=== PATIENT | female | born 1950 | race Caucasian/White ===

== ENCOUNTER 2016-11-26 10:40 | Inpatient (IN) | payer MEDICARE ==
[~2016-11-26] VITALS: Ht 172.7 cm; Wt 74.5 kg
[2016-11-26] VITALS (8 sets, daily range): BP systolic 138–165; BP diastolic 52–98; PULSE 67–85; RESP 16–20; O2SAT 97–99
[~2016-11-26 10:40] MED LIST: CALC600T12 PO; LETR2.5T4 PO; LISI10TA PO; MULT1CAP33 PO; PALB125C PO
--- NOTE | 2016-11-26 11:10 | ED.REPORT ---
HPI-Abd Pain F 40 and Over Date of Service Nov 26, 2016 ED Provider: Nicolas Mancilla MD Pt is a 66 y/o female w/ a hx of metastatic breast cancer with prior diffuse small bowel infiltration and bone mets, presenting to the ED with her c/ o nausea and vomiting after eating for the past 4 days. She has a history of SBO and had a bowel resection 20 months ago. During that presentation, they found out that she had metastatic breast cancer. She believes her symptoms today are similar to that time. Anytime she eats, she becomes very nauseous. She last vomited 4 days ago. Her last meal was last night a small amount of macaroni and cheese which cause her nausea. She c/o associated RLQ abdominal pain which is the same location as her previous presentation. She passed a small amount of stool this morning. Pt denies fever, dysuria. Cancer treatment history per Dr. Carlin's note below: She received four cycles of Taxotere and Cytoxan and was on maintenance hormonal therapy after that. Details summarized in my note of August 13. She was on anastrozole alone since August 2015, but in early July 2016, had evidence of disease progression and was switched to Faslodex in combination with oral Ibrance. The Ibrance was reduced to 100 mg daily because of neutropenia issues on 125 mg. Nursing Notes Stated Complaint: POSS STOMACH BLOCKAGE/SENT BY RAFFY Chief Complaint: Female Abdominal Pain Nursing Notes Reviewed: Yes Allergies: Coded Allergies: meperidine (Verified Allergy, Severe, Nausea,Vomiting, 11/26/16) Scheduled Calcium Carbonate (Calcium) 600 Mg Tablet 600 MG PO DAILY Fulvestrant (Faslodex) 250 Mg/Syr Syringe Unknown Dose IM every 28 days Letrozole (Letrozole) 2.5 Mg Tablet 2.5 MG PO DAILY Lisinopril (Lisinopril) 10 Mg Tablet 10 MG PO DAILY Multivitamin (Multivitamins) 1 Each Capsule 1 EACH PO DAILY Palbociclib (Ibrance) 125 Mg Capsule 125 MG PO [id number] 7 General Time Seen by MD: 11:09 Chief Complaint Vomiting moderate Hx Obtained From: Patient, Spouse Arrived By: Walk-in Sudden in Onset?: No Onset Occurred: 4 days ago Symptom Duration: Since onset Progression since Onset: Constant Location: : RLQ Quality: Painful Radiation: : Does not radiate Severity: Current: Mild Severity: Maximum: Mild Recent Healthcare: Previous diagnosis Similar Sx Previous: Yes Past Medical History Past Medical History Notes: Admitted 03/25- for SBO Oncologist: Raffy Past Medical History HTN Migraines Metastatic ER positive, HER-2 negative breast cancer with prior diffuse small bowel wall infiltration and mets to bone Past Surgical History Reports: Appendectomy, Tonsillectomy Smoking History Never Smoker Social History Alcohol Use: "Social" Review of Systems Constitutional: Denies: Chills, Fever Respiratory: Denies: Non-productive cough, Shortness of breath Cardiovascular: Denies: Chest pain GI: Reports: Abdominal pain, Nausea, Vomiting, Denies: Bloody/tarry stool, Diarrhea Female: Denies: Dysuria Complete sys rev & neg: except as marked. Physical Exam Vital Signs Vital Signs (First) Date Time Temp Pulse Resp B/P Pulse Ox O2 Delivery O2 Flow Rate FiO2 11/26/16 10:44 36.8 85 16 149/95 99 Room Air Initial VS: Reviewed, Vital signs normal Head / Eyes: Atraumatic, Normocephalic, PERRL ENT: Mucous membranes moist, Conjunctiva normal, No scleral icterus Neck: Supple, Full range of motion Extremities: Vascular intact, Neuro intact, No swelling Skin: Warm, Dry, No cyanosis Neurologic: Alert, Oriented, Nonfocal Psychiatric: Mood/affect normal, Behavior normal, Normal thought content General/Constitutional: Awake, Alert, No acute distress, Cooperative, Not toxic appearing Behavior: Positive: Tearful Respiratory / Chest: Breath sounds NL, Breath sounds = bilat, No respiratory distress, No rales, No rhonchi, No wheezing Cardiovascular: Heart rate NL, Regular rhythm, Heart sounds NL, No murmurs Abdomen: Atraumatic, Soft, No guarding, No rebound, No distention Tenderness/Guarding/Rebound: Positive: Tender RLQ... (Mild) Bowel Sounds / Distention: Positive: Bowel sounds hypoactive (mild) Back: Full range of motion, Painless range of motion Interpretation & Diagnostics Lab Results Interpretation Result Diagram: 11/26/16 1137 11/26/16 1137 Test 11/26/16 11:05 11/26/16 11:37 11/26/16 12:04 Urine Color Yellow (YELLOW) Urine Appearance Clear (CLEAR,HAZY) Urine pH 6.5 (5.0-8.0) Urine Specific [place] 1.020 (1.003-1.035) Urine Protein 30mg/dL (NEG,TRACE) Urine Glucose (UA) Negativemg/dL (NEGATIVE) Urine Ketones Negativemg/dL (NEGATIVE) Urine Occult Blood Negative (NEGATIVE) Urine Nitrite Negative (NEGATIVE) Urine Bilirubin Negative (NEGATIVE) Urine Urobilinogen Normalmg/dL (NORMAL) Urine Leukocyte Esterase Negative (NEGATIVE) Urine RBC 0-2/hpf (0-2) Urine WBC 0-5/hpf (0-5) Urine Epithelial Cells Occasional/hpf (NONE-MOD) Urine Crystals None seen (NONE SEEN) Urine Bacteria None/hpf (NONE-FEW) Urine Hyaline Casts None/lpf (NONE) Urine Granular Casts None seen (NONE SEEN) Urine Waxy Casts None seen (NONE SEEN) Urine Red Blood Cell Casts None seen (NONE SEEN) Urine White Blood Cell Casts None seen (NONE SEEN) Urine Mucus Present (None Seen) Urine Trichomonas None seen (NONE SEEN) Urine Yeast None (NONE SEEN) Urinalysis Comment None Urine Culture Reflexed Not indicated Hold Urine Received (Received) White Blood Count 2.2th/mm3 (3.8-10.1) Red Blood Count 3.11mil/mm3 (3.90-5.20) Hemoglobin 10.6g/dL (12.0-15.6) Hematocrit 32.1% (35.0-46.0) Mean Corpuscular Volume 103.2fL (81-100) Mean Corpuscular Hemoglobin 34.1pg (27.0-35.0) Mean Corpuscular Hemoglobin Concent 33.0% (32.0-37.0) Red Cell Distribution Width 13.7% (12.3-15.4) Platelet Count 184bil/L (150-400) Neutrophils (%) (Auto) 50.5% (40-74) Lymphocytes (%) (Auto) 39.4% (14-46) Monocytes (%) (Auto) 5.5% (4-12) Eosinophils (%) (Auto) 2.3% (0-5) Basophils (%) (Auto) 1.8% (0-3) Sodium Level 141mEq/L (134-144) Potassium Level 4.4mEq/L (3.5-5.2) Chloride Level 103mEq/L (97-108) Carbon Dioxide Level 22mmol/L (18-29) Blood Urea Nitrogen 27mg/dL (8-27) Creatinine 0.93mg/dL (0.57-1.00) Estimat Glomerular Filtration Rate 86mL/min (>59) Glucose Level 104mg/dL (60-99) Calcium Level 10.6mg/dL (8.5-10.1) Magnesium Level 2.1mg/dL (1.6-2.6) Total Bilirubin 0.5mg/dL (0.0-1.2) Aspartate Amino Transf (AST/SGOT) 23U/L (0-50) Alanine Aminotransferase (ALT/SGPT) 14U/L (0-32) Alkaline Phosphatase 66U/L (25-165) Total Protein 7.7g/dL (6.4-8.4) Albumin 4.8g/dL (3.4-5.0) Lipase 193U/L (13-60) Lactic Acid Level 1.3mmol/L (0.4-2.0) Hold Ospina Top Tube Received (Received) CT Abd / Pelvis Interpretation IMPRESSION: Severe ascending and transverse colonic wall thickening in keeping with an infectious or inflammatory (statistically less likely ischemic) colitis. Of note the appendix is not discretely identified therefore cannot entirely exclude acute appendicitis although probably less likely given the long segment involvement. Nonetheless, recommend clinical and laboratory correlation. Nonobstructive right renal calculus. L3 osseous metastasis as before, with unchanged appearance Dictated by: Benny Telles M.D. on 11/26/2016 at 14:18 Approved by: Benny Telles M.D. on 11/26/2016 at 14:32 Study type: Abdominal CT IV contrast, Abdom CT oral contrast Interpretation / Wet Read by: Interpret - Radiologist Re-Eval/Medical Decision Med Decision/Clinical Course 66-year-old female history of breast cancer metastases to the bones presenting with right lower quadrant pain and nausea times several weeks. She had history of small bowel obstruction which was presenting symptom at time of diagnosis of metastatic breast cancer. She had a bowel resection at that time 2 years ago. Today her CT shows bowel wall thickening. Her white blood cell count is 2.2. She is on chemotherapy Ibranz which is likely causing her borderline neutropenia. Discussed withradiology. Possibly typhlitis. Discussed with general surgery and her oncologist Dr. Smith who recommended admission for possible typhlitis with IV Zosyn. Dr. Meléndez general surgery also requested GI consult for possible upper and lower endoscopy given her gastric distention possible gastroparesis. GI was consulted and they will talk with the primary team. Source of Hx: Old records Re-Evaluation/Progress : Time of Eval: 15:52 Re-Evaluation/Progress Note: Pt rechecked. Informed pt of need for admission. Pt understands and agrees with plan for admission. All questions addressed. Consultation #1: Referral / Consult Name: Earl Meléndez MD Consulted With: Surgeon Call Returned at: 15:37 Fifth Grade Teacher: Will see patient, Agrees with eval, Agrees with plan Note: Recommend admit to medicine. Will consult during admission. 16:43 after evaluation - recommends upper and lower endoscopy to evaluate possible gastroparesis Consultation #2: Referral / Consult Name: Irene Galan DO Consulted With: Hospitalist Call Returned at: 16:28 Fifth Grade Teacher: Will see patient, Agrees with eval, Agrees with plan, Accepts admit Consultation #3: Referral / Consult Name: Collin Aguayo MD Call Returned at: 17:01 Fifth Grade Teacher: Agrees with eval, Agrees with plan Note: Updated oncologist on case findings thus far. He will follow along during admit. Consultation #4: Referral / Consult Name: Giancarlo Holm MD Call Returned at: 17:48 Fifth Grade Teacher: Agrees with eval, Agrees with plan Note: Discussed case with GI. Will discuss case with hospitalist team. Counseled Regarding: Diagnosis, Lab results, Need for admission Discharge & Departure Primary Impression: Typhlitis Additional Impressions: Leukopenia Leukopenia type: neutropenia Neutropenia type: unspecified Qualified Code: D70.9 - Neutropenia, unspecified Gastric distention Disposition: ADMITTED TO HOSPITAL Discharge Condition All VS Reviewed: Yes Condition: Stable Referrals: Karen Lopez PA-C (PCP) Clolin Aguayo MD Scribe Attestation Portions of this note were transcribed by Henry Duke. I, Dr. Mancilla personally performed the history, physical exam and medical decision-making; I reviewed and confirmed the accuracy of the information in the transcribed note. Signed by Ruchi Ruvalcaba, 11/26/16 - 1200 copies to: Collin Aguayo MD; Karen Lopez PA-C, Ben M MD Nov 26, 2016 11:10 HENRY DUEK Nov 26, 2016 11:25
[2016-11-26] MEDS ORDERED: FAS500INJ IM (11:25)
[2016-11-26] MEDS ORDERED: 0.9% Sodium Chloride 1,000 ML IV ONE (11:25)
[2016-11-26] MEDS ORDERED: Iohexol 300 mg/mL 30 mL Inj PO ONE (11:25)
[2016-11-26 11:47] LABS: BASOPHILS % (AUTO) 1.8 % (0-3); EOSINOPHILS % (AUTO) 2.3 % (0-5); MONOCYTES % (AUTO) 5.5 % (4-12); Mean Corpuscular Hemoglobin 34.1 pg (27.0-35.0); Mean Corpuscular Volume 103.2 fL (81-100); NEUTROPHILS % (AUTO) 50.5 % (40-74); Platelet Count 184 bil/L (150-400)
[2016-11-26 12:08] LABS: APPEARANCE,URINE CLEAR (CLEAR,HAZY); COLOR,URINE YELLOW (YELLOW); OCCULT BLOOD,URINE NEGATIVE (NEGATIVE); PH,URINE 6.5 (5.0-8.0); UROBILINOGEN,URINE NORMAL (NORMAL)
[2016-11-26 12:09] LABS: Magnesium 2.1 mg/dL (1.6-2.6)
[2016-11-26] MEDS: Ondansetron 2 mg/mL 2 mL Inj IVPUSH PRN ×4 (13:01→23:14)
--- NOTE | 2016-11-26 14:33 | DRSVH ---
PROCEDURE: CT ABDOMEN AND PELVIS WITH CONTRAST ([id number]) INDICATIONS: abd pain h/o sbo/breast ca colon mets s/p resectio TECHNIQUE: After the administration of oral and intravenous contrast, 5 mm thick sections acquired from the diap hragms to the symphysis. 5 mm thick coronal and sagittal reformats were performed. For radiation do se reduction, the following was used: automated exposure control, adjustment of mA and/or kV accordi ng to patient size. COMPARISON: [facility], CT, CT CHEST ABD PELVIS W CON, 04/16/2016, 11:59. [facility], NM, NM BONE SCAN WHOLE BODY, 04/16/2016, 13:39. [facility], CT, CT ABD PELVIS W CON, 03/30/2015, 15:38. FINDINGS: Image quality: Excellent. ABDOMEN: Lung bases: Lung bases are clear. Heart size is normal. Solid organs: Liver and spleen are normal in size and enhancement. Gallbladder grossly unremarkable . Biliary system is mildly prominent however this is unchanged appearance since 03/30/15. Pancreas enhances normally. No adrenal nodules. Kidneys are normal in size and enhancement, without hydronep hrosis. Presumed subcentimeter right renal cyst or infarct, too small to characterize definitively. T here is a nonobstructive 1 mm right renal calculus on image 42 series 2. Peritoneum and bowel: There is long segment circumferential wall thickening involving the descending and proximal transverse colon, with adjacent inflammatory stranding and fluid. Background surgical changes, with bowel surgical anastomosis noted. No free air. The appendix is not clearly identified. The rectum is largely decompressed and grossly unremarkable. Nodes and vessels: No retroperitoneal or mesenteric adenopathy. Aorta and inferior vena cava are no rmal in caliber. Miscellaneous: No ventral hernias. PELVIS: Genitourinary: Bladder wall thickness is normal. Miscellaneous: No inguinal hernias or adenopathy. Bones: Diffuse L3 sclerosis and compression fracture, likely pathologic secondary to osseous metastas is. No definite interval change since 04/16/16. IMPRESSION: Severe ascending and transverse colonic wall thickening in keeping with an infectious or inflammatory (statistically less likely ischemic) colitis. Of note the appendix is not discretely identified ther efore cannot entirely exclude acute appendicitis although probably less likely given the long segment involvement. Nonetheless, recommend clinical and laboratory correlation. Nonobstructive right renal calculus. L3 osseous metastasis as before, with unchanged appearance Dictated by: Benny Telles M.D. on 11/26/2016 at 14:18 Approved by: Benny Telles M.D. on 11/26/2016 at 14:32
[2016-11-26] MEDS ORDERED: Piperacillin-Tazo 3.375 Gm Inj 3.375 GM in Dextrose 5% Minibag Plus 50 ML IV ONE (15:45)
[2016-11-26] MEDS ORDERED: Ondansetron 2 mg/mL 2 mL Inj IVPUSH PRN (16:30)
[2016-11-26] MEDS ORDERED: Alum-Mag Hydrox-Simeth 30 mL Suspension PO PRN ×2 (16:30→18:35)
--- NOTE | 2016-11-26 17:25 | CONS ---
[address] [address] CONSULTATION REPORT PATIENT: ASHU OLMEDO : 1950 MR#: [id number] ADMIT: 11/26/2016 JOB ID: [id number] DATE OF SERVICE: 11/26/2016 IDENTIFICATION/CHIEF COMPLAINT: Dr. Justice Souza has asked me to consult on this 66-year-old woman, sent over from medical oncologist' office regarding vomiting. HISTORY OF PRESENT ILLNESS: Patient reports emesis x1 today and was sent over for evaluation from her medical oncologist's. CT scan was read as thickening of the ascending colon and given her chronic leukopenia, the consideration of typhlitis was raised. The plan is to admit her to the hospitalist service and treated her for tonsillitis with General Surgery consultation. As I see the patient and talk to her, she describes symptoms of postprandial fullness, solids greater than liquids, with occasional emesis. She has a normal bowel movement every day, but has recently felt that it has been more difficult to regulate her bowel movements with stool softeners. She will often feel bloated and distended even without eating. This has been a chronic problem for some time, and seems to be getting worse. PAST MEDICAL HISTORY: Significant in that she was diagnosed with stage IV breast cancer back at the end of 2014 in a very unusual way when she presented with small bowel obstruction with findings at surgery of four areas of infiltrating adenocarcinoma consistent with infiltrating breast cancer, infiltrating the submucosa, muscularis propria and serosal surface of the small bowel. Since that time, she has been treated by Dr. Carlin in Medical Oncology and has done well, though recently had a rise in her tumor markers and had some changes to her chemotherapy with additions to her dual antiestrogen therapy. Her other past medical history is only significant for hypertension, colon polyps, and a previous appendectomy. PHYSICAL EXAMINATION: A slender woman in no acute distress. Vital signs are recorded in the chart. They are within normal limits. Her abdomen is soft and nontender. LABORATORY DATA: Show white count of 2.2 and hematocrit of 32.1 which is essentially unchanged over the past several months. Chemistries are within normal limits. Her glucose is 104. Her lipase is mildly elevated at 193. IMAGING: She had a CAT scan today that I both reviewed the report and the films. The impression was severe ascending and transverse colonic wall thickening consistent with infectious or inflammatory colitis as well as some L3 osseous metastatic disease noted with an unchanged appearance. I have looked at the films and compared the films to her previous CAT scan from April 2016, and note that at that time they noted some mild biliary and pancreatic ductal dilation without a discrete mass identified. As well, when I compare the stomach and the colon on these two films, it seems to me that she has a relatively dilated stomach on both the films and that her ascending colon had significant thickening back in April. IMPRESSION AND PLAN: A 66-year-old woman with emesis, history of stage IV breast cancer presenting with infiltrating intestinal metastases and concerns of possible typhlitis. My concern is whether most of her symptoms reflect some sort of gastric outlet obstruction and whether there is a possibility of a mechanical obstruction due to cancer in the pylorus. As well, I wonder whether there is an element of infiltrating breast cancer in the right colon. My recommendation is to treat her as if she has typhlitis but also have GI see her and consider upper endoscopy tomorrow morning and possibly colonoscopy after a bowel prep. I discussed the case with Dr. Justice Souza and I will discuss the case with GI advisor consultant and Dr. Carlin as time allows today.
--- NOTE | 2016-11-26 18:34 | PCM.HPMED ---
Subjective Date of Service Nov 26, 2016 Primary Provider: Admitting Physician: Fab Solorio MD Primary Care Physician: Karen Lopez PA-C Attending Physician: Fab Solorio MD Chief Complaint: Nausea and vomiting History of Present Illness: Vernell Bailon is a 66-year-old woman with past medical history significant for ER positive HER-2 negative metastatic breast cancer which initially presented as small bowel obstruction secondary to diffuse small bowel infiltration was initially diagnosed in late 2013 who presents to the [facility] emergency department today due to nausea and vomiting and recurrent mild abdominal pain. She has noticed severe nausea for the last 4 days and has not been able to eat very much and has been very careful with drinking even tiny amounts of water as it has caused her worsening. Prior to this she was feeling quite well actually. Patient denies any fevers, chills, shortness of breath, diarrhea, lower actually bruising, lower extremity edema. Patient was still able to pass small amounts of stool and gas. The patient's chart reveals that the patient had excellent disease control of induction chemotherapy and hormonal therapy. The patient has had a rise in her tumor marker and subsequently her regimen was changed. She did have neutropenia which was the reason that dose of her chemotherapy was reduced. In the emergency department her vitals were stable. She was given 1 L normal saline as well as [address] of abdomen revealed thickening of the transverse and ascending colon suggestive of ischemia/inflammation/infection. Dr. Meléndez of surgery was consulted related the patient and has kindly agreed to consult. He recommends antibiotic therapy. Does not believe the patient needs to drink this time. Recommends colonoscopy and EGD. Dr. Carlin was consulted from the ED and has agreed to consult on the patient. Review of Systems: A comprehensive review of systems was conducted with the patient and found to be negative except as above in the History of Present Illness. Allergies Coded Allergies: meperidine (Verified Allergy, Severe, Nausea,Vomiting, 11/26/16) Home Medications A comprehensive review of systems was conducted with the patient and found to be negative except as above in the History of Present Illness. PMH HTN Migraines Metastatic ER positive, HER-2 negative breast cancer with prior diffuse Surgical History Appendectomy Tonsillectomy Family History Patient's father had stomach cancer and her sister had cervical cancer Social History Hx Alcohol Use: No Hx Substance Use: No Hx Tobacco Use: No Smoking Status: Never Smoker Exam Vital Signs Vital Sign - Last Date Time Temp Pulse Resp B/P Pulse Ox O2 Delivery O2 Flow Rate FiO2 11/26/16 13:37 36.6 70 20 148/52 98 Room Air Exam General: No acute distress, well-developed, well-nourished, appropriately interactive HEENT: Normocephalic, atraumatic. External ears without defect. Pupils equal, round, and reactive to light and accommodation. Anicteric sclerae, moist conjunctivae, and no lid lag. Oropharynx free of erythema and cobble stoning with moist mucosa. Neck: Supple with full range of motion. No jugular venous distension. No bruits. No lymphadenopathy or thyromegaly. Cardiovascular: Regular rate and rhythm with no murmurs, rubs, or gallops appreciated Pulmonary: Clear to auscultation bilaterally with no crackles, wheezes, or rhonchi. Normal respiratory effort with no use of accessory muscles. Abdomen: Bowel tones present. Soft, mildly tender diffusely, nondistended. No hepatosplenomegaly or masses appreciated. Extremities: No clubbing, cyanosis, or lymphadenopathy appreciated. Mild lower extremity edema up the ankles. Skin: Normal temperature, turgor, and texture; no rash, ulcers, or subcutaneous nodules appreciated. Neurological: Cranial nerves grossly intact. Normal muscle strength, tone, and bulk. Reflexes, coordination, and sensory function within normal limits. No known gait impairment. Psychiatric: Normal mood and affect. Alert and oriented to person, place, and time. Lab and Diagnostics Result Diagram: 11/26/16 1137 11/26/16 1137 X-Rays, CTs and MRIs CT ABDOMEN AND PELVIS WITH CONTRAST IMPRESSION: Severe ascending and transverse colonic wall thickening in keeping with an infectious or inflammatory (statistically less likely ischemic) colitis. Of note the appendix is not discretely identified therefore cannot entirely exclude acute appendicitis although probably less likely given the long segment involvement. Nonetheless, recommend clinical and laboratory correlation. Nonobstructive right renal calculus. L3 osseous metastasis as before, with unchanged appearance Dictated by: Benny Telles M.D. on 11/26/2016 at 14:18 Assessment & Plan Vernell Bailon is a 66-year-old woman with past medical history significant for ER positive HER-2 negative metastatic breast cancer which initially presented as small bowel obstruction secondary to diffuse small bowel infiltration was initially diagnosed in late 2013 who presents to the [facility] emergency department today due to nausea and vomiting and recurrent mild abdominal pain. Transverse and ascending colon colitis concerning for typhlitis, present remission, active -Patient has been evaluated by Dr. Meléndez who does not believe patient needs to undergo surgery at this time. -We will initiate patient on empiric antibiotics with Zosyn. -If the patient should develop fevers and continue to have them from >72 hours should be initiated on an antifungal agent. -We will obtain stool PCR. -Discussed the case with Dr. Holm of gastroenterology. If the patient's stool PCR is negative and no obvious etiology of colitis is found he has agreed that the patient should be evaluated with a colonoscopy. -At this time we will continue to monitor the patient. IV maintenance fluids. -Bowel rest -Antiemetic with Zofran and Phenergan -Blood cultures Metastatic ER positive, HER-2 negative breast cancer, present on admission, active -Managed by Dr. Carlin. He has been consulted from the emergency department and has agreed to see the patient while she is in the hospital. -We will differ to Dr. Carlin about continuation of outpatient medications. Leukopenia secondary to cytotoxic agent, present on admission, active -ANC 1100 -Continue to monitor Hypertension, present on admission, active -Hold home medications at this time. CODE STATUS: DNR/DNI Patient is admitted under inpatient status with expected length of stay greater than 2 midnights due to severity of presenting symptoms, risk of adverse event, and complexity of treatment plan. VTE Prophylaxis: Sub-Q Heparin (Unfractionated) Resuscitation Status: DNR/DNI:Do Not Resuscitate/Intubate Attending Statement Discussed the case with Dr. Galan. Agree with the assessment and plan. Irene Galan DO Nov 26, 2016 17:25 Fab Solorio MD Nov 26, 2016 21:03
[2016-11-26] MEDS ORDERED: Polyethylene Glycol (PEG) 17 Gm Powder PO PRN (18:35)
--- NOTE | 2016-11-26 18:42 | NUR ---
Admit Patient admitted into room from ED accompanied by . Saline locked IV access, transferred independently to bed, A&OX3, and on room air. Plan of care on white board and went over with patient and her .
[2016-11-26] MEDS: 0.9% Sodium Chloride 1,000 ML IV SCH (19:42)
[2016-11-27] VITALS (12 sets, daily range): BP systolic 85–158; BP diastolic 61–96; PULSE 60–102; RESP 8–18; O2SAT 96–100
[2016-11-27] MEDS: Piperacillin-Tazo 3.375 Gm Inj 3.375 GM in Dextrose 5% Minibag Plus 50 ML IV SCH ×3 (00:51→16:39)
[2016-11-27] MEDS: Heparin 5,000 Unit/mL Inj SUBQ SCH ×3 (00:58→16:40)
--- NOTE | 2016-11-27 01:26 | NUR ---
Tearful Mood/Nausea/Vomiting On initial assessment, patient appears very anxious and tearful about future diagnosis. Patient feels as if the cancer might be all throughout her intestines. Patient states her is not ready to be by himself. RN and patient talked about goals, worse and best case scenarios. Patient stated that nausea had not subsided. Zofran 4mg IVP administered x2. Patient vomited 475ml. Vomitus was dark tea colored. Patient felt better post vomitus. Patient is slightly hypertensive. Other VSS. Call light within reach. Care continues.
[2016-11-27] MEDS: 0.9% Sodium Chloride 1,000 ML IV SCH ×2 (05:37→15:42)
[2016-11-27 06:49] LABS: BASOPHILS % (AUTO) 0.5 % (0-3); EOSINOPHILS % (AUTO) 2.8 % (0-5); MONOCYTES % (AUTO) 5.1 % (4-12); Mean Corpuscular Hemoglobin 33.7 pg (27.0-35.0); NEUTROPHILS % (AUTO) 54.7 % (40-74); Platelet Count 165 bil/L (150-400)
[2016-11-27] MEDS ORDERED: Propofol 10,000 mCg/mL 20 mL Inj ONE (09:50)
[2016-11-27] MEDS ORDERED: fentaNYL-PF 50 mCg/mL 2 mL Inj ONE (09:50)
--- NOTE | 2016-11-27 13:38 | PCM.PNMED ---
Subjective Date of Service Nov 27, 2016 Subjective Patient seen and examined. Feeling better today. No nausea. No abdominal pain. Vitals stable. Exam Vital Signs Vital Sign - Last Date Time Temp Pulse Resp B/P Pulse Ox O2 Delivery O2 Flow Rate FiO2 11/27/16 12:35 36.7 70 18 144/84 100 Room Air Intake and Output 11/26/16 11/26/16 11/27/16 Cumulative From/Thru 15:00 23:00 07:00 11/26/16 10:44 - 11/27/16 06:16 Intake Total 0 ml 1054 ml 1054 ml Output Total 0 ml 1275 ml 1275 ml Balance 0 ml -221 ml -221 ml Intake Oral 0 ml 0 ml 0 ml IV Total 1054 ml 1054 ml Output Urine Total 0 ml 800 ml 800 ml Emesis 475 ml 475 ml # Bowel Movements 0 0 Exam General: No acute distress, well-developed, well-nourished, appropriately interactive Cardiovascular: Regular rate and rhythm with no murmurs, rubs, or gallops appreciated Pulmonary: Clear to auscultation bilaterally with no crackles, wheezes, or rhonchi. Normal respiratory effort with no use of accessory muscles. Abdomen: Bowel tones present. Soft, mildly tender diffusely, nondistended. No hepatosplenomegaly or masses appreciated. Extremities: No clubbing, cyanosis, or lymphadenopathy appreciated. Mild lower extremity edema up the ankles. Skin: Normal temperature, turgor, and texture; no rash, ulcers, or subcutaneous nodules appreciated. Lab and Diagnostics Result Diagram: 11/27/16 0535 11/27/16 0535 X-Rays, CTs and MRIs CT ABDOMEN AND PELVIS WITH CONTRAST IMPRESSION: Severe ascending and transverse colonic wall thickening in keeping with an infectious or inflammatory (statistically less likely ischemic) colitis. Of note the appendix is not discretely identified therefore cannot entirely exclude acute appendicitis although probably less likely given the long segment involvement. Nonetheless, recommend clinical and laboratory correlation. Nonobstructive right renal calculus. L3 osseous metastasis as before, with unchanged appearance Dictated by: Benny Telles M.D. 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 Transverse and ascending colon colitis concerning for typhlitis, present remission, active -Patient has been evaluated by Dr. Meléndez who does not believe patient needs to undergo surgery at this time. -on Zosyn. -If the patient should develop fevers and continue to have them from >72 hours should be initiated on an antifungal agent. -We will obtain stool PCR. with enema as patient has not had bowel movement -Discussed the case with Dr. Holm of gastroenterology. If the patient's stool PCR is negative and no obvious etiology of colitis is found he has agreed that the patient should be evaluated with a colonoscopy. -At this time we will continue to monitor the patient. IV maintenance fluids. -Bowel rest -Antiemetic with Zofran and Phenergan -Blood cultures Metastatic ER positive, HER-2 negative breast cancer, present on admission, active -Managed by Dr. Carlin. He has been consulted from the emergency department and has agreed to see the patient while she is in the hospital. -We will differ to Dr. Carlin about continuation of outpatient medications. Leukopenia secondary to cytotoxic agent, present on admission, active -ANC 1100 -Continue to monitor Hypertension, present on admission, active -Hold home medications at this time. CODE STATUS: DNR/DNI Dispo: likely home pending clinical improvement . VTE Prophylaxis: Sub-Q Heparin (Unfractionated) Resuscitation Status: DNR/DNI:Do Not Resuscitate/Intubate Time spent 35 mins Fab Solorio MD Nov 27, 2016 13:38
[2016-11-27] MEDS ORDERED: Lactated Ringer's 1,000 ML IV ONE ×2 (16:49→18:00)
--- NOTE | 2016-11-27 17:17 | PCM.HPANE ---
Patient Data Date of Service: Nov 27, 2016 Surgeon Admitting Provider:Fab Solorio MD Attending Provider:Fab Solorio MD Primary Care Physician:Karen Lopez PA-C Other Provider: Reason for Visit Typhlitis TYPHLITIS Ht/WT & BMI Height (Feet): 5 Height (Inches): 8.00 Weight (Kilograms): 72.600 Body Mass Index 24.26 Allergies Coded Allergies: meperidine (Verified Allergy, Severe, Nausea,Vomiting, 11/26/16) Past Anesthesia History Anesthesia History: Positive for:: Anesthesia Reactions (DEMEROL AFTER SURGERY) , Denies:: Abnormal Airway, Difficult Intubation, Fam Anesthesia Reaction, Fam Malignant Hypertherm, Malignant Hyperthermia Diabetes History Hx Diabetes?: No Current Bedside Blood Glucose: 84 MRSA MRSA: No Medications Reported Medications Fulvestrant (Faslodex)250 Mg/Syr SyringeUnknown Dose IM every 28 days 11/26/16 Letrozole 2.5 Mg Tablet2.5 Mg PO DAILY Ref 0 11/07/16 Palbociclib (Ibrance)125 Mg [id number] Mg PO [id number],off 7 08/13/16 Lisinopril 10 Mg [id number] Mg PO DAILY #30 TABLET Ref 6 03/21/16 Calcium Carbonate (Calcium)600 Mg [id number] Mg PO DAILY 06/29/15 Multivitamin (Multivitamins)1 Each Capsule1 Each PO DAILY 06/10/15 History History of ENT Problems?: Yes HEENT History: Positive for:: Sinus Problem (SEASONAL ALLERGIES.) Denies:: Abnormal Airway Cataracts Difficult Intubation Dysphagia Hearing Problem Denture Type: None Teeth Condition: Within Normal Limits Hx of Heart Problems?: Yes Cardiovascular History: Positive for:: Hypertension Denies:: Atrial Fibrillation Cardiac Surgery Chest Pain Congestive Heart Failure Edema Heart Murmur Irregular Heartbeat Pacemaker Thrombophlebitis Valvular Heart Disease Hx of Respiratory Problem?: No Respiratory History: Denies:: Asthma COPD Chest Surgery Cough Dyspnea Emphysema Hemoptysis Pneumonia Tuberculosis Hx Neurologic Problems?: Yes Neurological History: Positive for:: Headaches (MIGRAINE) Denies:: Alzheimer's Disease CVA Dementia Dizziness Parkinson's Disease Seizures Hx of GI Problems?: Yes (abdominal pain, nausea) Hx of Problems?: No Genitourinary History: Denies:: HX of Hemodialysis Kidney Stones Urinary Tract Infection HX of Peritoneal Dialysis: No Female Hx: Denies:: Currently Endometriosis Pelvic Inflammatory Problems with Breasts? Hx Musculoskeletal Problems?: Yes Musculoskeletal History: Positive for:: Back Injury Denies:: Joint Replacement Musculoskeletal Trauma Hx of Psycho/Social Problems?: Yes Psycho Social History: Positive for:: Anxiety Denies:: Bipolar Disorder Hx Depression Suicide Attempt Hx Surgeries?: Yes (TONSILLECTOMY, APPENDENCTOMY, KNEE SURGERY) Hx Any Other Health Problems?: Yes Other History: Positive for:: Cancer (metastatic breast cancer) Hospitalization (CHILDBIRTH, SBO) Denies:: Thyroid Disease History Blood Transfusions: Positive for:: Accept Blood Products? Denies:: Blood Transfuse Reaction Blood Transfusions Hx Diabetes: NoBedside Blood Glucose: 84 Hx Alcohol Use: NoHx Substance Use: No Smoking Status: Never Smoker Have You Smoked inLast 12 mo: No Stop/Bang Treated for Sleep Apnea?: No Do You Have a CPAP Machine?: No S-Snoring: Do You Snore Loudly: No T-Tired: feel tired, fatigued: No O-Obsered: Observed not breath: No P-Blood Pressure: treated: Yes B- Body Mass Index > 35 kg/m2: No A- Age over 50: Yes N- Neck Large Circumference: No G- Gender Male: No PENNY Total Score: 1 PENNY Risk Assessment: Low Risk, <3 Yes Risk Assessment Category Category 1A: Patient has history of documented sleep apnea, and HAS NOT received any narcotic, sedative or anesthesia administration during this stay. Category 1B: Patient has history of documented sleep apnea, and HAS received any narcotic , sedative or anesthesia administration during this stay Category 2: Patient has SUSPECTED Obstructive Sleep Apnea, and HAS received any narcotic , sedative or anesthesia administration during this stay. Category 3: Patient has SUSPECTED Obstructive Sleep Apnea and HAS NOT received narcotic, sedative or anesthesia administration during this stay. Category 4: Outpatient in Procedural Areas with known sleep apnea or who screen positive for High Risk via the STOP/BANG questionnaire. Exam Exam Vital Signs Vital Signs Date Time Temp Pulse Resp B/P Pulse Ox O2 Delivery O2 Flow Rate FiO2 11/27/16 16:36 36.7 71 18 158/96 97 Room Air 11/27/16 12:35 36.7 70 18 144/84 100 Room Air 11/27/16 10:41 68 General Appearance: Alert, Oriented X3, Cooperative HEENT/AIRWAY: MP 2, Neck Movement, Mouth Opening Lungs: Clear to Auscultation, Normal Air Movement Heart: Regular Rate/Rhythm, Normal S1, Normal S2 Meds/Labs/Diagnostics Admission Meds Current Medications Heparin Sodium (Porcine) 5000 unit 5,000 unit Q8 SUBQ Last administered on 11/27 16:40; Start 11/27/16 at 00:30 Sodium Chloride 1,000 ml @ 100 mls/hr Q10H IV Last administered on 11/27/16 15:42; Start 11/26/16 at 18:35 Piperacillin Sod/ Tazobactam Sod/ Dextrose/Water (Zosyn 3.375 Gm Inj/D5W Minibag Plus) 50 ml @ 12.5 mls/hr Q8 IV Last administered on 11/27/16 16:39; Start 11/27/16 at 00:30 Lisinopril (Zestril) 10 mg DAILY PO Last administered on 11/27/16 15:42; Start 11/27/16 at 13:45 Bedside Blood Glucose: 84 Labs Test 11/26/16 11:05 11/26/16 11:37 11/26/16 12:04 11/27/16 05:35 Urine Color Yellow (YELLOW) Urine Appearance Clear (CLEAR,HAZY) Urine pH 6.5 (5.0-8.0) Urine Specific [place] 1.020 (1.003-1.035) Urine Protein 30mg/dL (NEG,TRACE) Urine Glucose (UA) Negativemg/dL (NEGATIVE) Urine Ketones Negativemg/dL (NEGATIVE) Urine Occult Blood Negative (NEGATIVE) Urine Nitrite Negative (NEGATIVE) Urine Bilirubin Negative (NEGATIVE) Urine Urobilinogen Normalmg/dL (NORMAL) Urine Leukocyte Esterase Negative (NEGATIVE) Urine RBC 0-2/hpf (0-2) Urine WBC 0-5/hpf (0-5) Urine Epithelial Cells Occasional/hpf (NONE-MOD) Urine Crystals None seen (NONE SEEN) Urine Bacteria None/hpf (NONE-FEW) Urine Hyaline Casts None/lpf (NONE) Urine Granular Casts None seen (NONE SEEN) Urine Waxy Casts None seen (NONE SEEN) Urine Red Blood Cell Casts None seen (NONE SEEN) Urine White Blood Cell Casts None seen (NONE SEEN) Urine Mucus Present (None Seen) Urine Trichomonas None seen (NONE SEEN) Urine Yeast None (NONE SEEN) Urinalysis Comment None Urine Culture Reflexed Not indicated Hold Urine Received (Received) Magnesium Level 2.1mg/dL (1.6-2.6) Lipase 193U/L (13-60) Procalcitonin 0.05ng/mL (0.00-0.08) Lactic Acid Level 1.3mmol/L (0.4-2.0) Hold Ospina Top Tube Received (Received) White Blood Count 2.1th/mm3 (3.8-10.1) Red Blood Count 3.09mil/mm3 (3.90-5.20) Hemoglobin 10.4g/dL (12.0-15.6) Hematocrit 30.9% (35.0-46.0) Mean Corpuscular Volume 100.0fL (81-100) Mean Corpuscular Hemoglobin 33.7pg (27.0-35.0) Mean Corpuscular Hemoglobin Concent 33.7% (32.0-37.0) Red Cell Distribution Width 13.8% (12.3-15.4) Platelet Count 165bil/L (150-400) Neutrophils (%) (Auto) 54.7% (40-74) Lymphocytes (%) (Auto) 36.9% (14-46) Monocytes (%) (Auto) 5.1% (4-12) Eosinophils (%) (Auto) 2.8% (0-5) Basophils (%) (Auto) 0.5% (0-3) Sodium Level 142mEq/L (134-144) Potassium Level 4.3mEq/L (3.5-5.2) Chloride Level 107mEq/L (97-108) Carbon Dioxide Level 20mmol/L (18-29) Blood Urea Nitrogen 18mg/dL (8-27) Creatinine 0.78mg/dL (0.57-1.00) Estimat Glomerular Filtration Rate 105mL/min (>59) Glucose Level 99mg/dL (60-99) Calcium Level 9.2mg/dL (8.5-10.1) Total Bilirubin 0.6mg/dL (0.0-1.2) Aspartate Amino Transf (AST/SGOT) 20U/L (0-50) Alanine Aminotransferase (ALT/SGPT) 12U/L (0-32) Alkaline Phosphatase 63U/L (25-165) Total Protein 6.8g/dL (6.4-8.4) Albumin 4.4g/dL (3.4-5.0) Plan Impression Patient chart reviewed, patient interviewed and anesthestic plan with risks, benefits, and alternatives discussed, and informed consent obtained. NPO per Anesth. Guidelines: Yes ASA Physical Status: ASA3 Severe Disease Anesthetic Plan: MAC Bene/Risks/Altern/Consents: Yes HP Complete Prior to Induction: Yes Matt Miramontes MD Nov 27, 2016 16:50
--- NOTE | 2016-11-27 17:47 | PCM.ANEP1 ---
Post Anesthesia PACU Phase 1 Assessment Date of Service: Nov 27, 2016 Vital Signs Vital Signs Date Time Temp Pulse Resp B/P Pulse Ox O2 Delivery O2 Flow Rate FiO2 11/27/16 17:44 95 8 134/81 100 Room Air 11/27/16 17:12 71 14 153/94 100 Room Air 11/27/16 16:36 36.7 71 18 158/96 97 Room Air 11/27/16 12:35 36.7 70 18 144/84 100 Room Air 11/27/16 10:41 68 Anesthetic Administered: MAC Level of Alertness: Sleeping, hard to arouse CERON's with Equal Strength: Yes Pain: No Nausea or Vomiting: No CV Function & Hydration Stable: Yes Airway Device: Oxygen Delivery: Nasal Cannula Lungs: Clear to Auscultation, Normal Air Movement PACU Phase 2 Assessment Complications: No Follow up Care: N/A Patient Instructions Provided: N/A Matt Miramontes MD Nov 27, 2016 17:47
--- NOTE | 2016-11-27 17:53 | PCM.CHPMED ---
Subjective Date of Service: Nov 27, 2016 Provider requesting consult: Irene Galan DO Primary Physician: Admitting Physician: Fab Solorio MD Primary Care Physician: Karen Lopez PA-C Attending Physician: Fab Solorio MD Chief Complaint: Chief Complaint: Nausea and vomiting History of Present Illness: GASTROENTEROLOGY CONSULTATION Patient is a 66 yo woman with metastatic breast cancer that first presented as small bowel obstruction in 2014, hypertension, and migraines. Patient has been having occasional symptoms of nausea and abdominal discomfort for the last 2 months that has been increasing in frequency and acutely worsened over the weekend. She had large volume emesis last night which relieved her rumbling, burning, abdominal pain. She has occasional diarrhea but otherwise has a normal bowel movement daily with some mild constipation in the last couple of days. She has had a stable weight, she feels nauseous every day. Patient denies pain with and difficulty swallowing. she has had no fever, chills, night sweats, shortness of breath or chest pain. She denies melena, hematochezia, and hematemesis. Review of Systems: A comprehensive review of systems was conducted with the patient and found to be negative except as above in the History of Present Illness. PMH Past Medical History HTN migraines metastatic ER+, HER-2 negative breast cancer diagnosed in 2014 Bedside Blood Glucose: 84 Surgical History Small bowel resection for obstruction that was presenting symptom of her breast cancer Appendectomy Tonsillectomy Home Medications letrozole Faslodex cyclin D inhibitor, Ibrance lisinopril calcium multivitamin Allergies: Coded Allergies: meperidine (Verified Allergy, Severe, Nausea,Vomiting, 11/26/16) Family History Family History Father with gastric cancer No known family history of colon ca, IBD, or celiac disease. Social History Hx Alcohol Use: NoHx Substance Use: NoHx Tobacco Use: No Smoking Status: Never Smoker Living Arrangement: with Family Exam Vital Signs Vital Sign - Last Date Time Temp Pulse Resp B/P Pulse Ox O2 Delivery O2 Flow Rate FiO2 11/27/16 17:47 Nasal Cannula 11/27/16 17:44 95 8 134/81 100 11/27/16 16:36 36.7 Intake and Output 11/26/16 11/26/16 11/27/16 Cumulative From/Thru 15:00 23:00 07:00 11/26/16 10:44 - 11/27/16 06:16 Intake Total 0 ml 1054 ml 1054 ml Output Total 0 ml 1275 ml 1275 ml Balance 0 ml -221 ml -221 ml Intake Oral 0 ml 0 ml 0 ml IV Total 1054 ml 1054 ml Output Urine Total 0 ml 800 ml 800 ml Emesis 475 ml 475 ml # Bowel Movements 0 0 General: Alert, Oriented X3, Cooperative, No Acute Distress Head: Normal Eyes: EOMI, Other (mildly anisocoric, equally reactive) Neck: Supple, No Thyromegaly Chest & Lungs: Auscultation (clear bilaterally) Cardiovascular: Regular Rate/Rhythm, No Murmurs/Rubs/Gallops Abdomen: Non-tender, Non-distended, Soft Extremities: No cyanosis/clubbing/edma bilat Neurological: Grossly Neurologically Intact Lab and Diagnostics Labs Liver enzymes normal, lipase 193, lactic acid 1.3 stool pcr negative blood cultures negative at 24 hours Result Diagram: 11/27/16 0535 11/27/16 0535 Assessment & Plan Assessment 66 yo woman with metastatic breast cancer, history of small bowel obstruction s/ p resection in 2014 presents with 2 months of occasional nausea, vomiting, and upper abdominal pain that acutely worsened over the last 3 days. Stool PCR ordered and negative. Dr. Meléndez of general surgery expressed concern for patient having gastric outlet obstruction and the possibility of a mechanical obstruction due to cancer in the pylorus. EGD to be performed today to assess for intraluminal or mass effect causes of patient's worsening nausea, vomiting, and abdominal pain. Oral PPI daily. Thank you for this interesting consult and for allowing us to participate in the care of this patient. Problems: Pain Evaluation: Adequate Pain Control VTE Prophylaxis: Sub-Q Heparin (Unfractionated) Resuscitation Status: DNR/DNI:Do Not Resuscitate/Intubate Attending Statement Patient seen and examined. Agree with assessment and plan as described by Dr Huntley. Atypical presentation yrs ago with brst CA related SBO. Stool PCR was negative and patient is not really exhibiting symptoms of a colitis at present. Agree with Dr Meléndez's concerns in regards more proximal obstructive symptoms. Please see EGD report fro further details. copies to: Giancarlo Holm MD, Erika R DO Nov 27, 2016 17:53 Giancarlo Holm MD Nov 27, 2016 23:34
--- NOTE | 2016-11-27 18:35 | NUR ---
GI- Patient denies abd. pain, but said her "stomach didn't feel right" and she felt full after drinking chicken broth. Denies nausea. No emesis. Passed liquid dark colored stool earlier today. Returned to room after EGD procedure, and denies complaints.
--- NOTE | 2016-11-27 19:08 | CCS NOTE ---
[facility] [address], [address] [address] MEDICAL ONCOLOGY OFFICE NOTE PATIENT: ASHU OLMEDO : 1950 MR#: [id number] DATE: 11/26/2016 JOB ID: [id number] DATE: 11/27/2016 The patient is a pleasant, 66-year-old lady, whom I have been following since March 2015, when she presented with a small-bowel obstruction that did not resolve with medical measures and required a diagnostic laparoscopy by Dr. Romero, showing dilated and thickened small bowel loops that were excised and surprisingly showed diffuse infiltration of the small bowel wall by metastatic invasive lobular carcinoma of the breast. The patient did not carry a diagnosis of breast cancer at that time, and that was her presenting symptom. She was found to have a primary tumor lesion in the right breast with right axillary lymph node involvement, ER positive, HER-2 negative, as well as skeletal metastases. She was treated with chemotherapy with Taxotere and Cytoxan with excellent response, and so far, has not had any GI issues. She was then maintained on hormonal therapy. She has had palliative radiation to L3, as well as left acetabular region. She had received six cycles of chemotherapy and was switched to anastrozole since August 2015, with good control of her disease and improvement of her tumor marker. She then had disease progression and was switched to second-line therapy, still with hormonal agents, combination of Faslodex IM injections combined with Ibrance tablets since August of this year with some brief stabilization of her tumor marker, but still a recent steady rise and therefore we added oral letrozole to Faslodex and increased the dose of Ibrance to full dose of 125 mg orally daily, three weeks on, one week off, accepting mild to moderate degree of neutropenia with ANC, however, mostly above 1000. She is not on any cytotoxic chemotherapy. This recent change with dual anti-estrogen therapy was made on October 10. I had seen her last about 3-4 weeks ago and her tumor marker rise was incrementally improving in velocity although it was still rising from 105-119. She has now come in with symptoms of nausea, vomiting, and abdominal discomfort for few days which was aggravating by any oral intake. IMAGING: Has been done with a CT of abdomen and pelvis. I have been in communication with ED physician. CT abdomen and pelvis showed no evidence of small-bowel obstruction, radiographically, surprisingly, but rather thickening of the lower GI tract of the transverse and ascending colon quite severely with a large differential diagnosis, inflammatory versus infectious; less likely, ischemic. Stool cultures were performed and have been negative by PCR. LABORATORIES: Show normal electrolytes, creatinine, and LFTs. CBC shows a white count of 2.1 with an absolute neutrophil count of 1200, hemoglobin 10.4, platelets 165. I visited the patient's . She was having a colonoscopy at [facility] while I was in the room. Imaging with a CT scan was reviewed with her , who is very much involved in her care and was able to describe her recent symptoms of the last few days to me in detail. Her vitals in [facility] show no fever and blood pressure is overall stable. ASSESSMENT AND PLAN: A 66-year-old lady who is one year and nine months out from new diagnosis of metastatic estrogen receptor-positive, human epidermal growth factor receptor-2 negative, lobular carcinoma of the breast which peculiarly presented with symptom of small bowel obstruction at that time, without carrying a diagnosis of breast cancer, which led to this diagnosis with involvement of the small bowel wall. She has had an excellent response to treatment with essentially being asymptomatic over the past year and a half, but because of rising tumor marker, we have been gradually escalating her hormonal therapy over the past three months with now three-drug combination of the two anti-estrogen agents, letrozole and Faslodex, combined with oral cyclin D inhibitor, Ibrance. Her last exposure to cytotoxic chemotherapy was early 2015. Unfortunately, she now presents with clinical symptoms resembling small bowel obstruction, predominantly with nausea, vomiting, and abdominal cramping after eating, but her CT scan that was done yesterday of abdomen and pelvis is discordant with her symptoms, mostly showing lower GI abnormality with thickening of the colon wall without dilated bowel loops. The patient has been empirically started with antibiotics and is getting a colonoscopy with which I fully agree. I still remain concerned that her symptoms could be related to her breast cancer, although colitis for infectious or inflammatory causes remain in differential diagnosis. I am sure she will have some biopsies from the colon wall. I am ordering a CA27-29 to see the trend. Unfortunately. currently with acute illness, the level of the tumor marker might be artificially raised and therefore we cannot absolutely rely on that level, but if the tumor marker is stable, it would be helpful information.
--- NOTE | 2016-11-27 19:28 | ENDO ---
[address] [address] ENDOSCOPY PROCEDURE PATIENT: ASHU OLMEDO : 1950 MR#: [id number] ADMIT: 11/26/2016 JOB ID: [id number] DATE OF SERVICE: 11/27/2016 PRIMARY PROVIDER: Karen Lopez PA-C PROCEDURE: Esophagogastroduodenoscopy with biopsy. INDICATIONS: A 66-year-old female with a history of metastatic breast CA. She is on active chemotherapy. Has had some nausea and increasing challenges eating over the last couple of months or so. She has had subacute increase in symptoms of nausea and emesis over the last four days or so. She has not had any significant diarrhea to her recollection. Her case was discussed with Dr. Meléndez. He was concerned about the possibility of a more proximal obstructive process. Stool PCR was negative today so we elected to pursue a diagnostic EGD. EQUIPMENT: [id number] SEDATION: Monitored anesthesia was provided by Dr. Matt Miramontes. COMPLICATIONS: None identified. PROCEDURE INFORMATION: After the risks and benefits were explained, written and verbal informed consent was obtained. The patient was brought into the endoscopy suite and placed into the left lateral decubitus position. Sedation was achieved using the above-stated medications with the addition of oxygen via nasal cannula. The scope was introduced into the mouth through the bite block, and advanced under direct visualization through the oropharynx, esophagus, and ultimately down into the stomach. We had some mild difficulty navigating through the junction between D1 and D2, but were able to advance all the way into the second portion of the duodenum. Biopsies were acquired as below. The scope was then withdrawn. Retroflexed views were accomplished in the stomach. The stomach was decompressed. The scope removed from the patient who tolerated the procedure well. FINDINGS: 1. Esophagus: The squamocolumnar junction generally correlated with the top of the gastric folds. There was a subtle sliding hiatal hernia. The patient had evidence of some erosions and ulcerations right at the level of the GE junction. No mass effect evident. Photographs were taken. 2. Stomach: The patient had a moderately increased volume of mostly fluid remaining in the stomach. There was a small amount of scant debris. All of this was easily suctioned up with the endoscope. Retroflexed views of the LES were otherwise unremarkable. No ulcers. No mass lesions. No outlet obstruction evident. 3. Duodenum: The duodenal bulb was patent. However in trying to traverse into the second portion, it was obvious that there was significant luminal obstruction. It was difficult to determine the precise nature of said obstruction. It seemed as though much of the duodenal mucosa was quite edematous and arguably being constricted from the outside. There was an element of mucosal irregularity and even friability in this area. With some difficulty, we were able to obtain some biopsies for histopathologic analysis. I was able to navigate the endoscope fully through into the second portion which then appeared to be normal. ENDOSCOPIC DIAGNOSES: 1. Mild duodenal obstructive pathology-biopsied. 2. Small hiatal hernia. 3. Ulcerative esophagitis. RECOMMENDATIONS: 1. Smoothie consistency diet for now. 2. Antisecretory therapy considering the esophagitis. 3. Await histopathology. 4. In that the patient is clinically quite a bit improved, I think it would be reasonable to hold off on colonoscopy considering the lack of symptoms at present. Certainly, if there is any clinical deterioration that suggests ongoing colonic pathology, a bowel preparation should be pursued and updated colonoscopy arranged. We will continue to follow with you for now.
[2016-11-28] VITALS (7 sets, daily range): BP systolic 131–180; BP diastolic 70–102; PULSE 57–73; RESP 18–20; O2SAT 97–100
[2016-11-28] MEDS: Piperacillin-Tazo 3.375 Gm Inj 3.375 GM in Dextrose 5% Minibag Plus 50 ML IV SCH ×3 (00:24→17:15)
[2016-11-28] MEDS: Heparin 5,000 Unit/mL Inj SUBQ SCH ×3 (00:26→17:16)
[2016-11-28] MEDS: 0.9% Sodium Chloride 1,000 ML IV SCH (04:15)
[2016-11-28] MEDS: Pantoprazole 20 mg ER24 Tablet PO SCH (08:58)
[2016-11-28 09:03] LABS: EOSINOPHILS % (AUTO) 3.3 % (0-5); MONOCYTES % (AUTO) 4.3 % (4-12); Mean Corpuscular Hemoglobin 33.7 pg (27.0-35.0); Mean Corpuscular Volume 101.8 fL (81-100); Platelet Count 144 bil/L (150-400)
--- NOTE | 2016-11-28 10:31 | PCM.PNSURG ---
Subjective Date of Service: Nov 28, 2016 Date of Service: Nov 28, 2016 Visit Information: Reason for Visit Typhlitis Surgery/Surgery Date Post-Op Day # Date of Admission: Nov 26, 2016 at 16:48 Hospital Day #3 Subjective: Patient tearful in bed with at bedside. She wants answers and hopes for colonoscopy to help tease out cause for her abdominal pain and difficulties tolerating oral intake. Denies fevers chills. Notes some nausea with oral intake on clears. Has had soft BM. EGD yesterday. Postop General: No Shortness of Breath, No Chest Pain, Other (difficulty tolerating food intake.) Gastrointestinal: Passing Stool, Complains of Nausea, Not Tolerating Oral Feedings Postop Activity: Ambulating Independently Objective Objective mildly tearful but pleasant female in no apparent distress. Afebrile. Appropriate vital other than increasing BP (159/88) Vital Sign- Last 8 Hours Date Time Temp Pulse Resp B/P Pulse Ox O2 Delivery O2 Flow Rate FiO2 11/28/16 08:03 36.7 59 18 159/88 99 Room Air 11/28/16 04:43 36.8 67 20 147/88 97 Room Air Intake and Output- Last 8 Hour 11/28/16 Cumulative From/Thru 07:00 11/26/16 10:44 - 11/28/16 06:18 Intake Total 1454 ml 4582 ml Output Total 1675 ml Balance 1454 ml 2907 ml Intake Oral 400 ml 1160 ml IV Total 1054 ml 3422 ml Output Urine Total 800 ml Stool Total 400 ml Emesis 475 ml # Voids 2 5 # Bowel Movements 0 General: Oriented X3, Cooperative, No Acute Distress Lungs: Clear to Auscultation Heart: Exam Unremarkable Abdomen: Soft, Non-tender, Normoactive bowel tones Extremities: Distal Pulses Palpable Catheters: None Result Diagram: 11/28/16 0845 11/28/16 0845 Lab & Micro Results: Stool PCR negative Blood cx's NGTD Diagnostics: PROCEDURE: CT ABDOMEN AND PELVIS WITH CONTRAST ([id number]) INDICATIONS: abd pain h/o sbo/breast ca colon mets s/p resectio. COMPARISON: [facility], CT, CT CHEST ABD PELVIS W CON, 04/16/2016 , 11:59. [facility], NM, NM BONE SCAN WHOLE BODY, 04/16/2016, 13: 39. [facility], CT, CT ABD PELVIS W CON, 03/30/2015, 15:38. ABDOMEN: Lung bases: Lung bases are clear. Heart size is normal. Solid organs: Liver and spleen are normal in size and enhancement. Gallbladder grossly unremarkable. Biliary system is mildly prominent however this is unchanged appearance since 03/30/15. Pancreas enhances normally. No adrenal nodules. Kidneys are normal in size and enhancement, without hydronephrosis. Presumed subcentimeter right renal cyst or infarct, too small to characterize definitively. There is a nonobstructive 1 mm right renal calculus on image 42 series 2. Peritoneum and bowel: There is long segment circumferential wall thickening involving the descending and proximal transverse colon, with adjacent inflammatory stranding and fluid. Background surgical changes, with bowel surgical anastomosis noted. No free air. The appendix is not clearly identified. The rectum is largely decompressed and grossly unremarkable. Nodes and vessels: No retroperitoneal or mesenteric adenopathy. Aorta and inferior vena cava are normal in caliber. Miscellaneous: No ventral hernias. IMPRESSION: Severe ascending and transverse colonic wall thickening in keeping with an infectious or inflammatory (statistically less likely ischemic) colitis. Of note the appendix is not discretely identified therefore cannot entirely exclude acute appendicitis although probably less likely given the long segment involvement. Nonetheless, recommend clinical and laboratory correlation. PROCEDURE: Esophagogastroduodenoscopy with biopsy. ENDOSCOPIC DIAGNOSES: 1. Mild duodenal obstructive pathology-biopsied. 2. Small hiatal hernia. 3. Ulcerative esophagitis. RECOMMENDATIONS: 1. Smoothie consistency diet for now. 2. Antisecretory therapy considering the esophagitis. 3. Await histopathology. 4. In that the patient is clinically quite a bit improved, I think it would be reasonable to hold off on colonoscopy considering the lack of symptoms at present. Certainly, if there is any clinical deterioration that suggests ongoing colonic pathology, a bowel preparation should be pursued and updated colonoscopy arranged. Assessment & Plan Impression Impression continued nausea and early satiety with poor intake tolerance; patient felt much better after EGD. Extrinsic duodenal thickening and mild obstruction concerning for metastatic dz. ascending and transverse colon thickening possible contiguous to duodenal process. Vomiting improved abdominal pain improved. Problems: Plan Await histopathology from duodenum bx's. Potential increasing duodenal obstructive process might require intervention such as stenting vs palliation/ chemo for metastatic dz. Continue antisecretory medication per GI Consider colonoscopy to evaluate ascending/transverse thickened colon. Patient very clear on her desire for the information this procedure might provide. Go slow on diet advance No surgical indication at this time; will sign off. Please reconsult as needed. VTE Prophylaxis: Sub-Q Heparin (Unfractionated) Resuscitation Status: DNR/DNI:Do Not Resuscitate/Intubate Jeff Morrison PA-C Nov 28, 2016 10:31
[2016-11-28] MEDS: Ondansetron 2 mg/mL 2 mL Inj IVPUSH PRN ×2 (13:13→22:06)
[2016-11-28] MEDS: Promethazine Inj 25 MG in Dextrose 5%-Pha MIX 50 ML IV PRN (13:13)
--- NOTE | 2016-11-28 13:27 | PATH ---
SURGICAL PATHOLOGY Attending Physician:Johan Velazco CASE STATUS: Signed Out PATIENT NAME: ASHU OLMEDO PID: [id number] : 1950 DATE COLLECTED:11/27/2016 00:00 SPECIMEN: Duodenum, Biopsy CLINICAL HISTORY: 1). DUODENAL BIOPSY FINAL DIAGNOSIS: 1.DUODENAL BIOPSY: FRAGMENTS OF NORMAL-APPEARING DUODENAL MUCOSA. Normal delicate mucosal villi present. Negative for significant inflammation, dysplasia and malignancy. ICD10 R10.9 GROSS DESCRIPTION: The specimen is received in one formalin filled container labeled with the patient's name, sublabeled "duodenal" and consists of 3 portions of tissue and or debris which aggregate to 0.2 x 0.2 x 0.2 CM. The specimen is entirely submitted in one cassette. 11/28/2016DC MICRO DESCRIPTION: See diagnosis. ICD-9 CODES: CPT CODES: 1: 59759 Electronically Signed Out Giancarlo Vieira MD [facility] Pathology [facility] [address], [place] [address] Technical component performed at [facility], [facility] [address], [place], [address]
--- NOTE | 2016-11-28 16:12 | NUR ---
Social Work: Initial Assessment Data: Pt is a 66 y/o female admitted for typhlitis. Pt's PCP is Dr Lopez, pt's insurance is [employer] [place] Medicare. EMR reviewed. Readmit score is 3, high. COAL MILL OPERATOR met with pt and spouse at bedside, role explained. Pt states her and her live in a two story home in [place] where she uses no DME. Pt Drives, has no hx of HH or SNF, no LTC or VA benefits. Pt up and independent in room. Pt has ability for self care. No d/c planning needs anticipated at this time. COAL MILL OPERATOR will continue to follow if needs arise. Assessment: Pt who is independent at baseline. Plan: Pt will d/c home via POV when medically stable. Pt has ability for self care. No d/c planning needs anticipated at this time. COAL MILL OPERATOR will continue to follow if needs arise. SOFÍA Barcenas Addendum: 11/28/16 at 1615 by VÍCTOR CADENA Amended: Links added.
[2016-11-28] MEDS ORDERED: PEG/Electrolytes 4,000 mL Solution PO ONE ×2 (18:35)
--- NOTE | 2016-11-28 18:36 | NUR ---
GI Multiple small liquid brown BMs this am. Denies abd pain. Complains of nausea with clears. Zofran and phenergan given; tolerated pudding and slept for several hours. Plan for colonoscopy tomorrow.
--- NOTE | 2016-11-28 18:47 | PROG NOTE ---
[address] [address] PROGRESS NOTE PATIENT: ASHU OLMEDO : 1950 MR#: [id number] ADMIT: 11/26/2016 JOB ID: [id number] DATE: 11/28/2016 SUBJECTIVE: Pathology was returned on the duodenal biopsy and there were no abnormal findings reported. I explained this to the patient and suggested we proceed with a colonoscopy, and she was in agreement. She has had some nausea and some cramping with small volume liquid stools today. OBJECTIVE: Vital signs are stable. The patient is in no distress. She is a little somnolent, but did receive some promethazine earlier. LABORATORY DATA: White count 2.1, hemoglobin 9.3, platelets 144. Basic metabolic panel unremarkable, apart from calcium at 8.4. ASSESSMENT AND RECOMMENDATIONS: A 66-year-old female with metastatic breast cancer. She has been experiencing difficulty with early satiety, chronic nausea, and more recently vomiting. She has a stenosed, somewhat constricted region between D1 and D2 but histology is completely normal. I explained that she may require endoscopic ultrasound to better assess this area. However, in the meantime in light of the CT scan findings, it would be very reasonable to additionally pursue colonoscopy. Bowel prep is ordered. The procedure should be accomplished tomorrow afternoon.
--- NOTE | 2016-11-28 19:19 | CCS NOTE ---
[facility] [address], [address] [address] MEDICAL ONCOLOGY OFFICE NOTE PATIENT: ASHU OLMEDO : 1950 MR#: [id number] DATE: 11/26/2016 JOB ID: [id number] DATE: 11/28/2016 SUBJECTIVE: I saw the patient this afternoon with her at beside. She had EGD by Dr. Holm yesterday evening. A colonoscopy was postponed to possibly tomorrow. CA 27-29 is pending from labs this morning. EGD procedure note of Dr. Holm reviewed describing a vague resistance in the second portion of the duodenum with edematous duodenal mucosa. There might have been some obstructive process from outside narrowing the lumen in that region. Biopsy of the duodenal wall from yesterday already is back showing some normal-appearing mucosa of the duodenum. No malignant cells in the specimen. The patient still has been unable to advance any diet and gets nauseated shortly after eating, then smoothies. EXAMINATION: On exam, the abdomen is not distended. She is in no acute distress and is otherwise stable. LABORATORY: Her labs of today, show a white count of 2.1, hemoglobin 9.3, platelets 144. White cells stable as well. Afebrile. ASSESSMENT AND PLAN: A 66-year-old lady with the unusual presentation of breast cancer cells involving the small bowel loops causing small bowel obstruction as the presenting symptom leading to diagnosis in March 2015. Details summarized in my previous notes. She has had at that time a resection of the involved loops of bowel which resolved the obstruction and the patient received then chemotherapy with Taxotere and Cytoxan followed by maintenance therapy with hormonal agents. She had an excellent course over the past one and a half years essentially without any symptoms. However, in this past couple of weeks, she has been noticing symptoms of some abdominal discomfort and particularly symptoms that suggest upper GI pathology with early nausea and vomiting after she tries to eat. Her CT scan did not show this time any pattern of bowel obstruction but diffuse thickening of the colon wall which really does not fit with her complaints. She might have a colitis, but I doubt that that explains her symptoms. The EGD performed yesterday evening by Dr. Holm does describes a narrowing and tightness in the second portion of the duodenum with some difficulties of passing the scope with the biopsies taken from the edematous mucosa which came back negative for malignancy. However, despite this biopsy, I remain concerned that the true nature of her symptoms is a malignant process at the gastric outlet in the distal duodenum. That would better explain her symptoms and the lack of definitive findings on the CT scan. The CA 27-29 is pending. Colonoscopy is being considered. I wonder whether she would benefit from a diagnostic laparoscopy. In my opinion, it is more likely that her current findings are due to a malignant process in the upper GI tract causing functional gastric outlet obstruction which is not complete but partial, and seems to be getting challenged when she has oral intake. I did discuss with her that if we come to this conclusion, that we might have to change her treatment and reinitiate chemotherapy, but, at this point, the issue of the gastric passage needs to be addressed first.
[2016-11-29] VITALS (10 sets, daily range): BP systolic 121–172; BP diastolic 79–94; PULSE 56–70; RESP 16–20; O2SAT 97–100
[2016-11-29] MEDS: Heparin 5,000 Unit/mL Inj SUBQ SCH ×3 (01:10→18:21)
[2016-11-29] MEDS: Piperacillin-Tazo 3.375 Gm Inj 3.375 GM in Dextrose 5% Minibag Plus 50 ML IV SCH ×3 (01:11→18:21)
--- NOTE | 2016-11-29 05:20 | NUR ---
Bowel prep / nausea Pt barely able to tolerate bowel prep related to nausea, making effort to take in all of it. Several BMs that are getting clearer and clearer. Plan to admin Zofran then resume bowel prep liquid this am. Hourly rounding ongoing. Addendum: 11/29/16 at 0538 by JA VALDEZ RN Pt reports clear stool, declines to restart bowel prep related to nausea. Declines Zofran as long as not needing to drink prep for now.
--- NOTE | 2016-11-29 07:22 | NUR ---
NUTRITION ASSESSMENT: ASSESS:66 YO female admitted with nausea, vomiting and recurrent mild abdominal pain. She has had severe nausea for the last 4 days and has been anorexic, as drinking even tiny amounts of water worsens the nausea. Prior to this she was feeling quite well. Patient was still able to pass small amounts of stool and gas. Per oncology, this patient initially presented in 03/27 with breast cancer cells involving the small bowel loops causing small bowel obstruction. At that time, there was a resection of the involved loops of bowel which resolved the obstruction, followed by chemotherapy with Taxotere and Cytoxan, followed by maintenance therapy with hormonal agents. She had an excellent course over the past one and a half years essentially without any symptoms until the past [address] scan did not show any pattern of bowel obstruction but diffuse thickening of the colon wall. EGD performed yesterday does describe a narrowing and tightness in the second portion of the duodenum with some difficulties of passing the scope, with the biopsies taken from the edematous mucosa which came back negative for malignancy. However, despite this biopsy, oncology remains concerned that the true nature of her symptoms is a malignant process at the gastric outlet in the distal duodenum. That would better explain her symptoms and the lack of definitive findings on the CT scan. The CA 27-29 is pending. Colonoscopy is scheduled today. Oncology suggesting diagnostic laparoscopy due to the likelihood that her current findings are due to a malignant process in the upper GI tract causing functional gastric outlet obstruction which is not complete but partial, and seems to be getting challenged when she has oral intake. If that is the case, there is the potential to change her treatment and reinitiate chemotherapy, but, at this point, the issue of the gastric passage needs to be addressed first. Code status: DNR / DNI. PMHx:HTN, migraines, metastatic ER+, HER-2 negative breast cancer diagnosed in 2014. DIET:NPO / clear liquids x 3 D. LABS: Reviewed. WNL. MEDICATIONS: Reviewed. NUTRITION FOCUSED PHYSICAL ASSESSMENT: GI symptoms / stool: No BM reported.Gerardo: 20. Skin Integrity: No issues reported. ANTHROPOMETRICS: Current Wt: 72.6 kgBMI: 24.0 kg/m2.Admit weight: 72.27 IBW: 63.6 kg (113.6% IBW) Weight loss: 3.6 kg x 6 months = 4.72% ESTIMATED NEEDS (CANCER): Calories: 1807 - 2168 kcal (25 - 30 kcal / kg BW) Protein: 72 - 108 g protein (1.0 - 1.5 g / kg W) Fluid: Approx. 2530 mL (35 mL / kg BW) NUTRITION DIAGNOSIS: 1)Increased nutrient needs related to metastatic breast cancer, as evidenced by likely GI involvement. 2) Inadequate oral intake related to intractable nausea / vomiting past 4 days, 4.72% weight loss x 6 months. INTERVENTION: 1) Once diet advanced status post colonoscopy, will add Ensure and Magic Cups to trays. 2) In the event altered GI function related to progression of malignancy, recommend consideration of PEG tube placement to mitigate further nutritional decline into moderate to severe malnutrition. MONITOR/EVALUATE: Diet advance / tolerance, PO intake, labs, GI/nutrition status. Follow up per high nutrition risk guidelines.
[2016-11-29] MEDS: Pantoprazole 20 mg ER24 Tablet PO SCH (07:30)
--- NOTE | 2016-11-29 08:53 | PCM.PNMED ---
Subjective Date of Service Nov 29, 2016 Subjective Patient seen and examined today. She said she vomited half of the bowel prep, however her bowel movements are clear now. Vitals stable. Exam Vital Signs Vital Sign - Last Date Time Temp Pulse Resp B/P Pulse Ox O2 Delivery O2 Flow Rate FiO2 11/29/16 08:16 36.6 56 20 141/84 99 Room Air 11/27/16 17:44 4 Intake and Output 11/28/16 11/28/16 11/29/16 Cumulative From/Thru 15:00 23:00 07:00 11/26/16 10:44 - 11/29/16 05:34 Intake Total 360 ml 124 ml 5066 ml Output Total 2 ml 1677 ml Balance 358 ml 124 ml 3389 ml Intake Oral 360 ml 1520 ml IV Total 124 ml 3546 ml Output Urine Total 800 ml Stool Total 2 ml 402 ml Emesis 475 ml # Voids 5 10 # Bowel Movements 0 Exam General: No acute distress, well-developed, well-nourished, appropriately interactive Cardiovascular: Regular rate and rhythm with no murmurs, rubs, or gallops appreciated Pulmonary: Clear to auscultation bilaterally with no crackles, wheezes, or rhonchi. Normal respiratory effort with no use of accessory muscles. Abdomen: Bowel tones present. Soft, mildly tender diffusely, nondistended. No hepatosplenomegaly or masses appreciated. Extremities: No clubbing, cyanosis, or lymphadenopathy appreciated. Mild lower extremity edema up the ankles. Skin: Normal temperature, turgor, and texture; no rash, ulcers, or subcutaneous nodules appreciated. Lab and Diagnostics Result Diagram: 11/28/16 0845 11/29/16 0550 X-Rays, CTs and MRIs CT ABDOMEN AND PELVIS WITH CONTRAST IMPRESSION: Severe ascending and transverse colonic wall thickening in keeping with an infectious or inflammatory (statistically less likely ischemic) colitis. Of note the appendix is not discretely identified therefore cannot entirely exclude acute appendicitis although probably less likely given the long segment involvement. Nonetheless, recommend clinical and laboratory correlation. Nonobstructive right renal calculus. L3 osseous metastasis as before, with unchanged appearance Dictated by: Benny Telles M.D. on 11/26/2016 at 14:18 Assessment & Plan Vernell Bailon is a 66-year-old woman with past medical history significant for ER positive HER-2 negative metastatic breast cancer which initially presented as small bowel obstruction secondary to diffuse small bowel infiltration was initially diagnosed in late 2013 who presents to the [facility] emergency department today due to nausea and vomiting and recurrent mild abdominal pain. Transverse and ascending colon colitis concerning for typhlitis, present remission, active -Patient has been evaluated by Dr. Meléndez who does not believe patient needs to undergo surgery at this time. -If the patient should develop fevers and continue to have them from >72 hours should be initiated on an antifungal agent. -Stool PCR -ve for any pathogens -Bowel prep last night, Colonoscopy today Upper GI partial obstruction - Dr. Holm of gastroenterology on board. Patient had endoscopy with biopsy negative for malignancy , a stenosed, somewhat constricted region between D1 and D2. May need esophageal US as per notes - patient had bowel prep last night, colonoscopy today - based on Dr. Carlin's notes, it seems like there is still a concern for malignancy.Marker value pending, may need to change her treatment Metastatic ER positive, HER-2 negative breast cancer, present on admission, active -Tumor marker pending - as per Dr. Carlin " true nature of her symptoms is a malignant process at the gastric outlet in the distal duodenum" " if we come to this conclusion, that we might have to change her treatment and reinitiate chemotherapy, but, at this point, the issue of the gastric passage needs to be addressed first" Leukopenia secondary to cytotoxic agent, present on admission, active -ANC 1100, stable -Continue to monitor Hypertension, present on admission, active -Hold home medications at this time. CODE STATUS: DNR/DNI Dispo: likely home pending clinical improvement . VTE Prophylaxis: Sub-Q Heparin (Unfractionated) Resuscitation Status: DNR/DNI:Do Not Resuscitate/Intubate Time spent 35 mins Fab Solorio MD Nov 29, 2016 08:53
[2016-11-29 09:19] LABS: Mean Corpuscular Hemoglobin 33.9 pg (27.0-35.0); Mean Corpuscular Volume 101.1 fL (81-100)
[2016-11-29 09:20] LABS: BASOPHILS % (AUTO) 1.4 % (0-3); EOSINOPHILS % (AUTO) 3.3 % (0-5); MONOCYTES % (AUTO) 5.6 % (4-12); NEUTROPHILS % (AUTO) 41.6 % (40-74); Platelet Count 137 bil/L (150-400)
[2016-11-29] MEDS ORDERED: 0.9% Sodium Chloride 1,000 ML IV SCH (12:10)
[2016-11-29] MEDS: Dextrose 5% 0.9% NaCl 1,000 ML IV SCH ×2 (12:16→22:18)
--- NOTE | 2016-11-29 12:22 | NUR ---
Social Work- Multidisciplinary Rounds Pt discussed in rounds. No social work needs identified in rounds at this time. No concerns related to pt's capacity for self care. Pt continues to be worked up medically, anticipate discharge in 2-3 more days. SOFÍA Gilman
[2016-11-29] MEDS ORDERED: fentaNYL-PF 50 mCg/mL 2 mL Inj IVPUSH PRN (13:40)
[2016-11-29] MEDS: 0.9% Sodium Chloride 1,000 ML IV SCH (14:34)
--- NOTE | 2016-11-29 15:57 | ENDO ---
[address] [address] ENDOSCOPY PROCEDURE PATIENT: ASHU OLMEDO : 1950 MR#: [id number] ADMIT: 11/26/2016 JOB ID: [id number] DATE OF SERVICE: 11/29/2016 PROCEDURE: Flexible sigmoidoscopy with biopsy and tattoo placement. EQUIPMENT: PCF H 180 AL. SEDATION: 8 mg Versed, 200 mcg fentanyl. COMPLICATIONS: None identified. BOWEL PREPARATION: Fair, adequate exam. PROCEDURE INFORMATION: After the risks and benefits were explained, written and verbal informed consent was obtained. The patient was brought into the endoscopy suite and placed into the left lateral decubitus position. Sedation was achieved using the above-stated medications with the addition of oxygen via nasal cannula. A digital rectal examination was accomplished. The scope was introduced into the rectum and advanced under direct visualization to the level of the splenic flexure. From there, we could not navigate beyond this into the transverse proper secondary to a moderate stenotic lesion and significant scope looping. We biopsied the stricture and placed a tattoo just distal to this location at around 60 cm from the anal verge. Within a couple of cm further distal to the tattoo, we noticed that we had already traversed another mild stenotic lesion. The scope was thereafter brought back through the remainder of the left colon, the colon was decompressed, and the scope removed from the patient, who tolerated the procedure reasonably well. FINDINGS: Multifocal stricturing at the level of the splenic flexure. The more severe stenosis aperture was down to perhaps 8 or 9 mm. With the scope looping, we were not able to navigate the tip through this region. It was biopsied and then an 1 mL tattoo was placed just distal to it. There was a 2nd minimally stenotic region just distal to the tattoo. The remainder of the descending and sigmoid was unremarkable, apart from moderate tortuosity. No evidence of colitis or mass lesions apparent in the left colon. We did get some visualization into the transverse on the other side of the stenosis and did not see any obvious sign of retained stool or inflammation. ENDOSCOPIC DIAGNOSES: 1. Multifocal splenic flexure stricturing. 2. Incomplete colonoscopy secondary to number one. RECOMMENDATIONS: 1. Await histopathology. 2. Proceed with EUS, ideally tomorrow afternoon, contingent on Dr. De La Cruz's availability. This may help further clarify what is going on in the junction between D1 and D2 in the duodenum. It will likely also assist with any potential surgical intervention. 3. A full liquid diet today, with a clear liquid diet after midnight. NPO after 10 a.m. tomorrow.
--- NOTE | 2016-11-29 17:52 | CCS NOTE ---
[facility] [address], [address] [address] MEDICAL ONCOLOGY OFFICE NOTE PATIENT: ASHU OLMEDO : 1950 MR#: [id number] DATE: 11/26/2016 JOB ID: [id number] DATE: 11/29/2016 Events overnight were reviewed in [facility], and I visited with the patient's . Patient was recovering from a colonoscopy this afternoon. She has not had any fevers. She has not been able to advance her diet and colonoscopy prep take down only by about half and she had some vomiting. No fevers. Her lab studies reveal that the tumor marker CA December 06 was 123 which is not significantly different than the draw from about a month ago when it was 119. 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 I reviewed her current course and discussed with Dr. Holm today the endoscopic findings with the EGD yesterday. Dr. Holm is pretty confident that there was a pathology in the second portion of the duodenum with a narrowing effect, but it was without an obvious mass involving the mucosa and maybe that is why the biopsy was negative. The patient is still proceeding with a colonoscopy this afternoon, and I have contacted Dr. Gusman with Surgery, reviewing this case, and requesting a consult for consideration of a diagnostic laparoscopy to evaluate for possible gastric outlet obstruction that might have not have been diagnosable with CT. Dr. Gusman evaluated the patient and we discussed the situation again after him being present at the colonoscopy which apparently was also abnormal, showing areas of the mucosa that were biopsied. Overall, we reached the conclusion to ask Dr. De La Cruz for endoscopic ultrasound for better understanding of the status in the duodenum, and if that is truly the source of the patient's symptoms, maybe place a stent in the duodenum rather than surgery so that the patient can get temporary relief and be started on chemotherapy. It is somewhat encouraging that her tumor marker has not drastically changed compared to a month ago with the CA 27-29 being around 123 compared to 119. I was concerned that there might be a dramatic rise with this presentation but that does not appear to be the case. She has not seen any chemotherapy of hormonal agents and therefore has a number of options of chemotherapeutic intervention including re-treatment with Taxotere and Cytoxan or single agent Doxil or a combination of AC. I am hopeful that if the current symptoms can be controlled and bypassed, that the patient can resume chemotherapy and respond again.
--- NOTE | 2016-11-29 22:26 | PCM.PNSURG ---
Subjective Date of Service: Nov 29, 2016 Visit Information: Gastric Outlet Obstruction with H/o Breast cancer metastatic to the bowel Date of Admission: Nov 26, 2016 at 16:48 Hospital Day # 4 Subjective: Seen upon the request of Dr. Carlin to consider surgical intervention to help with diagnosis/ palliation of her current situation. Objective Vital Sign- Last 8 Hours Date Time Temp Pulse Resp B/P Pulse Ox O2 Delivery O2 Flow Rate FiO2 11/29/16 21:25 70 121/79 11/29/16 19:40 36.6 69 18 172/91 99 Room Air 11/29/16 16:05 36.7 61 18 156/85 100 Room Air 11/29/16 15:19 64 16 147/89 100 Room Air 11/29/16 15:05 59 16 142/80 100 Room Air 11/29/16 14:49 59 16 150/86 98 Room Air Intake and Output- Last 8 Hour 11/29/16 Cumulative From/Thru 07:00 11/26/16 10:44 - 11/29/16 05:34 Intake Total 124 ml 5066 ml Output Total 1677 ml Balance 124 ml 3389 ml Intake Oral 1520 ml IV Total 124 ml 3546 ml Output Urine Total 800 ml Stool Total 402 ml Emesis 475 ml # Voids 10 # Bowel Movements 0 Abdomen: Soft Result Diagram: 11/29/16 0550 11/29/16 0550 Diagnostics: Reviewed CT & EGD & Colonoscopy findings Assessment & Plan Impression Gastric outlet obstruction with Multiple colonic strictures, possibly from recurrent metastatic breast cancer Problems: Plan If Dr. Holm/ Dorothy are able to obtain tssue diagnosis of recurrent malignancy, she will likely best served by a duodenal stent If not, I will plan an diagnostic laparoscopy next week to help with the diagnosis Surgical bypass is an option but not ideal in the setting of multiple strictures. Spent > 60 minutes discussing the alternatives with the patient and coordinating care. Will continue to follow. Please call if questions. Malini Gusman MD Nov 29, 2016 22:26
[2016-11-30] VITALS (10 sets, daily range): BP systolic 130–184; BP diastolic 81–98; PULSE 59–77; RESP 15–22; O2SAT 97–100
[2016-11-30] MEDS: Piperacillin-Tazo 3.375 Gm Inj 3.375 GM in Dextrose 5% Minibag Plus 50 ML IV SCH ×3 (00:49→21:41)
[2016-11-30] MEDS: Heparin 5,000 Unit/mL Inj SUBQ SCH ×3 (00:49→16:30)
[2016-11-30 06:26] LABS: BASOPHILS % (AUTO) 1.1 % (0-3); EOSINOPHILS % (AUTO) 4.7 % (0-5); MONOCYTES % (AUTO) 8.4 % (4-12); Mean Corpuscular Hemoglobin 33.8 pg (27.0-35.0); Mean Corpuscular Volume 99.2 fL (81-100); NEUTROPHILS % (AUTO) 47.4 % (40-74); Platelet Count 134 bil/L (150-400)
--- NOTE | 2016-11-30 06:34 | NUR ---
Activity Pt up ambulating halls during night and early AM with steady gait. 0 c/o pain or nausea. Tolerating full liquid diet. Changed to clear liquids at midnight for procedure today. Pt mood is very happy and talkative. Hoping for good news. No anxiety noted. Care continues
[2016-11-30 06:39] LABS: INR 1.05 ratio
[2016-11-30] MEDS: Dextrose 5% 0.9% NaCl 1,000 ML IV SCH (08:15)
--- NOTE | 2016-11-30 08:44 | PCM.PNMED ---
Subjective Date of Service Nov 30, 2016 Subjective Patient seen and examined today. She feels much more positive today. No pain. No nausea. Vitals stable. Exam Vital Signs Vital Sign - Last Date Time Temp Pulse Resp B/P Pulse Ox O2 Delivery O2 Flow Rate FiO2 11/30/16 05:40 36.8 61 20 156/88 99 Room Air 11/27/16 17:44 4 Intake and Output 11/29/16 11/29/16 11/30/16 Cumulative From/Thru 15:00 23:00 07:00 11/26/16 10:44 - 11/30/16 06:37 Intake Total 2100 ml 806 ml 1091 ml 9063 ml Output Total 1958 ml 950 ml 4585 ml Balance 142 ml -144 ml 1091 ml 4478 ml Intake Oral 1600 ml 120 ml 3240 ml IV Total 500 ml 686 ml 1091 ml 5823 ml Output Urine Total 1250 ml 950 ml 3000 ml Stool Total 8 ml 410 ml Emesis 700 ml 1175 ml # Voids 4 14 # Bowel Movements 0 Exam General: No acute distress, well-developed, well-nourished, appropriately interactive Cardiovascular: Regular rate and rhythm with no murmurs, rubs, or gallops appreciated Pulmonary: Clear to auscultation bilaterally with no crackles, wheezes, or rhonchi. Normal respiratory effort with no use of accessory muscles. Abdomen: Bowel tones present. Soft, mildly tender diffusely, nondistended. No hepatosplenomegaly or masses appreciated. Extremities: No clubbing, cyanosis, or lymphadenopathy appreciated. Mild lower extremity edema up the ankles. Skin: Normal temperature, turgor, and texture; no rash, ulcers, or subcutaneous nodules appreciated. Lab and Diagnostics Result Diagram: 11/30/16 0611 11/29/16 0550 X-Rays, CTs and MRIs CT ABDOMEN AND PELVIS WITH CONTRAST IMPRESSION: Severe ascending and transverse colonic wall thickening in keeping with an infectious or inflammatory (statistically less likely ischemic) colitis. Of note the appendix is not discretely identified therefore cannot entirely exclude acute appendicitis although probably less likely given the long segment involvement. Nonetheless, recommend clinical and laboratory correlation. Nonobstructive right renal calculus. L3 osseous metastasis as before, with unchanged appearance Dictated by: Benny Telles M.D. on 11/26/2016 at 14:18 Assessment & Plan Vernell Bailon is a 66-year-old woman with past medical history significant for ER positive HER-2 negative metastatic breast cancer which initially presented as small bowel obstruction secondary to diffuse small bowel infiltration was initially diagnosed in late 2013 who presents to the [facility] emergency department today due to nausea and vomiting and recurrent mild abdominal pain. Upper GI partial obstruction - Dr. Holm of gastroenterology on board. Patient had endoscopy with biopsy negative for malignancy , a stenosed, somewhat constricted region between D1 and D2. - Had colonoscopy yesterday, multiple strictures - based on Dr. Gusman and Dr Carlin's notes, plan is to do endoscopic US today , take biopsies, wait for pathology , if tumor stent to be placed, otherwise laproscopy next week Transverse and ascending colon colitis concerning for typhlitis, present remission, resolved - Colonoscopy done yesterday, no signs of active inflammation -symptoms resolved -Stool PCR -ve for any pathogens Metastatic ER positive, HER-2 negative breast cancer, present on admission, active -Tumor marker 123, not a huge change from previous one (119) - plan is to do endoscopic US today, take biopsies, waiting for pathology , if tumor stent to be placed, otherwise laproscopy next week - per Dr. Carlin : "She has not seen any chemotherapy of hormonal agents and therefore has a number of options of chemotherapeutic intervention including re-treatment with Taxotere and Cytoxan or single agent Doxil or a combination of AC. I am hopeful that if the current symptoms can be controlled and bypassed, that the patient can resume chemotherapy and respond agai" - Dr. Gusman, Dr. Carlin, Dr. Holm on board Leukopenia secondary to cytotoxic agent, present on admission, active - WBCs - 1.9 today, stable -Continue to monitor Hypertension, present on admission, active -Hold home medications at this time. CODE STATUS: DNR/DNI Dispo: likely home pending clinical improvement . VTE Prophylaxis: SCDs Resuscitation Status: DNR/DNI:Do Not Resuscitate/Intubate Time spent 35 mins Fab Solorio MD Nov 30, 2016 08:44
[2016-11-30] MEDS: Pantoprazole 20 mg ER24 Tablet PO SCH (08:49)
[2016-11-30] MEDS ORDERED: fentaNYL-PF 50 mCg/mL 2 mL Inj ONE (09:44)
[2016-11-30] MEDS ORDERED: Propofol 10,000 mCg/mL 20 mL Inj ONE (09:44)
[2016-11-30] MEDS ORDERED: Ondansetron 2 mg/mL 2 mL Inj IVPUSH PRN ×2 (11:10→17:50)
[2016-11-30] MEDS ORDERED: Lactated Ringer's 1,000 ML IV SCH ×2 (11:10→17:47)
[2016-11-30] MEDS ORDERED: MetoCLOpramide 5 mg/mL 2 mL Inj IVPUSH PRN ×2 (11:10→17:50)
[2016-11-30] MEDS ORDERED: Lactated Ringer's 1,000 ML IV ONE (11:10)
[2016-11-30] MEDS: Labetalol 5 mg/mL 20 mL Inj IV ONE ×3 (15:29→15:55)
[2016-11-30] MEDS ORDERED: hydrALAZINE 20 mg/mL Inj IV ONE (15:35)
--- NOTE | 2016-11-30 17:45 | NUR ---
Endo Pt leaves to endo. SL
[2016-11-30] MEDS ORDERED: Lactated Ringer's 500 ML IV PRN (17:47)
--- NOTE | 2016-11-30 17:47 | PCM.HPANE ---
Patient Data Date of Service: Nov 30, 2016 Surgeon Admitting Provider:Fab Solorio MD Attending Provider:Fab Solorio MD Primary Care Physician:Karen Lopez PA-C Other Provider: Reason for Visit Typhlitis, Gastric Outlet Obstruction TYPHLITIS Ht/WT & BMI Height (Feet): 5 Height (Inches): 8.00 Weight (Kilograms): 72.600 Body Mass Index 24.00 Allergies Coded Allergies: meperidine (Verified Allergy, Severe, Nausea,Vomiting, 11/26/16) Past Anesthesia History Anesthesia History: Positive for:: Anesthesia Reactions (DEMEROL AFTER SURGERY) , Denies:: Abnormal Airway, Difficult Intubation, Fam Anesthesia Reaction, Fam Malignant Hypertherm, Malignant Hyperthermia Diabetes History Hx Diabetes?: No Current Bedside Blood Glucose: 79 MRSA MRSA: No Medications Reported Medications Fulvestrant (Faslodex)250 Mg/Syr SyringeUnknown Dose IM every 28 days 11/26/16 Letrozole 2.5 Mg Tablet2.5 Mg PO DAILY Ref 0 11/07/16 Palbociclib (Ibrance)125 Mg [id number] Mg PO lcdhsf02zigk,off 7 08/13/16 Lisinopril 10 Mg Gljgpp68 Mg PO DAILY #30 TABLET Ref 6 03/21/16 Calcium Carbonate (Calcium)600 Mg [id number] Mg PO DAILY 06/29/15 Multivitamin (Multivitamins)1 Each Capsule1 Each PO DAILY 06/10/15 History History of ENT Problems?: Yes HEENT History: Positive for:: Sinus Problem (SEASONAL ALLERGIES.) Denies:: Abnormal Airway Cataracts Difficult Intubation Dysphagia Hearing Problem Denture Type: None Teeth Condition: Within Normal Limits Hx of Heart Problems?: Yes Cardiovascular History: Positive for:: Hypertension Denies:: AICD Atrial Fibrillation Cardiac Surgery Chest Pain Congestive Heart Failure Edema Heart Murmur Irregular Heartbeat Pacemaker Thrombophlebitis Valvular Heart Disease Hx of Respiratory Problem?: No Respiratory History: Denies:: Asthma COPD Chest Surgery Cough Dyspnea Emphysema Hemoptysis Pneumonia Tuberculosis Hx Neurologic Problems?: Yes Neurological History: Positive for:: Headaches (MIGRAINE) Denies:: Alzheimer's Disease CVA Dementia Dizziness Parkinson's Disease Seizures Hx of GI Problems?: Yes Hx of Problems?: No Genitourinary History: Denies:: HX of Hemodialysis Kidney Stones Urinary Tract Infection HX of Peritoneal Dialysis: No Female Hx: Denies:: Currently Endometriosis Pelvic Inflammatory Problems with Breasts? Hx Musculoskeletal Problems?: Yes Musculoskeletal History: Positive for:: Back Injury Denies:: Fibromyalgia Joint Replacement Musculoskeletal Trauma Hx of Psycho/Social Problems?: Yes Psycho Social History: Positive for:: Anxiety Denies:: Bipolar Disorder Hx Depression Suicide Attempt Hx Surgeries?: Yes (TONSILLECTOMY, APPENDENCTOMY, KNEE SURGERY) Hx Any Other Health Problems?: Yes Other History: Positive for:: Cancer (metastatic breast cancer) Hospitalization ([facility], [facility]) Denies:: Thyroid Disease History Blood Transfusions: Positive for:: Accept Blood Products? Denies:: Blood Transfuse Reaction Blood Transfusions Hx Diabetes: NoBedside Blood Glucose: 79 Hx Alcohol Use: NoHx Substance Use: No Smoking Status: Never Smoker Have You Smoked inLast 12 mo: No Stop/Bang Treated for Sleep Apnea?: No Do You Have a CPAP Machine?: No S-Snoring: Do You Snore Loudly: No T-Tired: feel tired, fatigued: No O-Obsered: Observed not breath: No P-Blood Pressure: treated: Yes B- Body Mass Index > 35 kg/m2: No A- Age over 50: Yes N- Neck Large Circumference: No G- Gender Male: No PENNY Total Score: 2 PENNY Risk Assessment: Low Risk, <3 Yes Risk Assessment Category Category 1A: Patient has history of documented sleep apnea, and HAS NOT received any narcotic, sedative or anesthesia administration during this stay. Category 1B: Patient has history of documented sleep apnea, and HAS received any narcotic , sedative or anesthesia administration during this stay Category 2: Patient has SUSPECTED Obstructive Sleep Apnea, and HAS received any narcotic , sedative or anesthesia administration during this stay. Category 3: Patient has SUSPECTED Obstructive Sleep Apnea and HAS NOT received narcotic, sedative or anesthesia administration during this stay. Category 4: Outpatient in Procedural Areas with known sleep apnea or who screen positive for High Risk via the STOP/BANG questionnaire. Low Risk, <3 Yes Exam Exam Vital Signs Vital Signs Date Time Temp Pulse Resp B/P Pulse Ox O2 Delivery O2 Flow Rate FiO2 11/30/16 17:43 59 174/92 100 Room Air 11/30/16 16:09 64 156/83 11/30/16 15:44 65 11/30/16 15:03 65 182/96 11/30/16 13:27 36.6 72 18 184/94 99 Room Air General Appearance: Alert, Oriented X3, Cooperative, No Acute Distress HEENT/AIRWAY: MP 2, Neck Movement, Mouth Opening Lungs: Clear to Auscultation, Normal Air Movement Heart: Regular Rate/Rhythm, Normal S1, Normal S2 Meds/Labs/Diagnostics Admission Meds Current Medications Labetalol HCl (Trandate Inj) 10 mg ONCE ONCE IV Last administered on t 15:55; Start 11/30/16 at 16:30; Stop 11/30/16 at 16:31; Status DC Bedside Blood Glucose: 79 Labs Test 11/26/16 11:05 11/26/16 11:37 11/26/16 12:04 11/27/16 05:35 Urine Color Yellow (YELLOW) Urine Appearance Clear (CLEAR,HAZY) Urine pH 6.5 (5.0-8.0) Urine Specific [place] 1.020 (1.003-1.035) Urine Protein 30mg/dL (NEG,TRACE) Urine Glucose (UA) Negativemg/dL (NEGATIVE) Urine Ketones Negativemg/dL (NEGATIVE) Urine Occult Blood Negative (NEGATIVE) Urine Nitrite Negative (NEGATIVE) Urine Bilirubin Negative (NEGATIVE) Urine Urobilinogen Normalmg/dL (NORMAL) Urine Leukocyte Esterase Negative (NEGATIVE) Urine RBC 0-2/hpf (0-2) Urine WBC 0-5/hpf (0-5) Urine Epithelial Cells Occasional/hpf (NONE-MOD) Urine Crystals None seen (NONE SEEN) Urine Bacteria None/hpf (NONE-FEW) Urine Hyaline Casts None/lpf (NONE) Urine Granular Casts None seen (NONE SEEN) Urine Waxy Casts None seen (NONE SEEN) Urine Red Blood Cell Casts None seen (NONE SEEN) Urine White Blood Cell Casts None seen (NONE SEEN) Urine Mucus Present (None Seen) Urine Trichomonas None seen (NONE SEEN) Urine Yeast None (NONE SEEN) Urinalysis Comment None Urine Culture Reflexed Not indicated Hold Urine Received (Received) Magnesium Level 2.1mg/dL (1.6-2.6) Lipase 193U/L (13-60) Procalcitonin 0.05ng/mL (0.00-0.08) Lactic Acid Level 1.3mmol/L (0.4-2.0) Hold [place]ina Top Tube Received (Received) Total Bilirubin 0.6mg/dL (0.0-1.2) Aspartate Amino Transf (AST/SGOT) 20U/L (0-50) Alanine Aminotransferase (ALT/SGPT) 12U/L (0-32) Alkaline Phosphatase 63U/L (25-165) Total Protein 6.8g/dL (6.4-8.4) Albumin 4.4g/dL (3.4-5.0) Test 11/28/16 08:45 11/29/16 05:50 11/30/16 06:11 CA 27.29 123.7U/mL (0.0-38.6) Sodium Level 144mEq/L (134-144) Potassium Level 3.5mEq/L (3.5-5.2) Chloride Level 107mEq/L (97-108) Carbon Dioxide Level 21mmol/L (18-29) Blood Urea Nitrogen 8mg/dL (8-27) Creatinine 0.78mg/dL (0.57-1.00) Estimat Glomerular Filtration Rate 105mL/min (>59) Glucose Level 81mg/dL (60-99) Calcium Level 8.6mg/dL (8.5-10.1) White Blood Count 1.9th/mm3 (3.8-10.1) Red Blood Count 2.63mil/mm3 (3.90-5.20) Hemoglobin 8.9g/dL (12.0-15.6) Hematocrit 26.1% (35.0-46.0) Mean Corpuscular Volume 99.2fL (81-100) Mean Corpuscular Hemoglobin 33.8pg (27.0-35.0) Mean Corpuscular Hemoglobin Concent 34.1% (32.0-37.0) Red Cell Distribution Width 13.2% (12.3-15.4) Platelet Count 134bil/L (150-400) Neutrophils (%) (Auto) 47.4% (40-74) Lymphocytes (%) (Auto) 38.4% (14-46) Monocytes (%) (Auto) 8.4% (4-12) Eosinophils (%) (Auto) 4.7% (0-5) Basophils (%) (Auto) 1.1% (0-3) Prothrombin Time 11.2sec (8.1-12.5) Prothromb Time International Ratio 1.05ratio Plan Impression Patient chart reviewed, patient interviewed and anesthestic plan with risks, benefits, and alternatives discussed, and informed consent obtained. NPO per Anesth. Guidelines: Yes ASA Physical Status: ASA3 Severe Disease Anesthetic Plan: MAC Bene/Risks/Altern/Consents: Yes HP Complete Prior to Induction: Yes Doug Millard MD Nov 30, 2016 17:47
[2016-11-30] MEDS ORDERED: Dexamethasone 4 mg/mL Inj IVPUSH PRN (17:50)
[2016-11-30] MEDS ORDERED: Phenylephrine 10,000 mCg/mL Inj IVPUSH PRN (17:50)
[2016-11-30] MEDS ORDERED: fentaNYL-PF 50 mCg/mL 2 mL Inj IVPUSH PRN (17:50)
[2016-11-30] MEDS ORDERED: HYDROmorphone 1 mg/mL Inj IVPUSH PRN (17:50)
[2016-11-30] MEDS ORDERED: EPHEDrine Sulfate 50 mg/mL Inj IVPUSH PRN (17:50)
--- NOTE | 2016-11-30 18:40 | PCM.ANEP1 ---
Post Anesthesia PACU Phase 1 Assessment Date of Service: Nov 30, 2016 Vital Signs Vital Signs Date Time Temp Pulse Resp B/P Pulse Ox O2 Delivery O2 Flow Rate FiO2 11/30/16 17:43 59 174/92 100 Room Air 11/30/16 16:09 64 156/83 11/30/16 15:44 65 11/30/16 15:03 65 182/96 11/30/16 13:27 36.6 72 18 184/94 99 Room Air Anesthetic Administered: MAC Level of Alertness: Awake, talking CERON's with Equal Strength: Yes Pain: No Pain Scale Score: 0 Nausea or Vomiting: No CV Function & Hydration Stable: Yes Airway Device: Oxygen Delivery: Nasal Cannula Lungs: Clear to Auscultation, Normal Air Movement PACU Phase 2 Assessment Complications: No Follow up Care: No Patient Instructions Provided: Yes Doug Millard MD Nov 30, 2016 18:40
--- NOTE | 2016-11-30 18:59 | ENDO ---
[address] [address] ENDOSCOPY PROCEDURE PATIENT: ASHU OLMEDO : 1950 MR#: [id number] ADMIT: 11/26/2016 JOB ID: [id number] PROCEDURE: EUS exam. INDICATION: Gastric outlet obstruction. Rule out extrinsic mass. Please see Dr. Doug Millard's anesthesia report for details regarding ASA classification, Mallampati score, and medications. INSTRUMENTS USED: GIF-H180J as well as a GF ECT 180 linear echo endoscope. PROCEDURE DETAILS: After informed consent was obtained, patient was brought into the GI suite, where she was placed on oxygen via nasal cannula and monitored with continuous pulse oximeter, telemetry, and blood pressure monitoring. A time-out was performed. Then, she was placed in a left lateral decubitus position and medications were administered for sedation. A bite block was placed. Standard upper endoscope was then introduced through the bite block and advanced without difficulty to the distal duodenal bulb. Here, I encountered significant edema and narrowing of the lumen. However, with gentle pressure, we were able to advance the scope to the second portion of the duodenum which appeared normal. The scope was then withdrawn, and as the scope was withdrawn back from the proximal 2nd portion of duodenum into the duodenal bulb, the mucosa appeared to edematous and friable. Normal-appearing pylorus antrum and gastric body. Retroflexed views in the gastric body revealed a normal-appearing cardia and fundus. Normal-appearing GE junction. Normal-appearing esophagus. The standard upper endoscope was then withdrawn and then the linear echo endoscope was then introduced through the bite block and advanced to the distal duodenal bulb. Beyond this, I was unable to advance the scope despite pressure. Linear echo endoscopic imaging demonstrated the following: No mass lesion was appreciated proximal to the stricture in the distal duodenum. The duodenal wall did appear to be thickened but no obvious mass lesions seen. The pancreas was then visualized and appeared to be normal without any masses. The pancreatic duct was identified and appeared to be normal in course and caliber. The splenic artery and vein had normal flow. The portal vein was identified and appeared unremarkable and had normal flow. The celiac axis was identified and appeared normal. The common bile duct was identified and appeared to be mildly dilated at approximately 6 mm. The left lobe of the liver was identified and appeared unremarkable. The gallbladder was seen and no obvious abnormalities were noted. The left adrenal gland appeared normal. Examined portions of the left kidney appeared normal. IMPRESSION: Incomplete EUS exam as we were unable to advance the scope beyond the distal duodenal bulb secondary to stricturing. No obvious mass lesions seen to explain stricture in the duodenum. RECOMMENDATIONS: 1. Consider diagnostic laparoscopy and possible gastric bypass. 2. Start clear liquid diet. 3. Dr. Holm will follow the patient over the weekend. COMPLICATIONS: None. ESTIMATED BLOOD LOSS: Zero.
--- NOTE | 2016-11-30 19:06 | CCS NOTE ---
[facility] [address], [address] [address] MEDICAL ONCOLOGY OFFICE NOTE PATIENT: ASHU OLMEDO : 1950 MR#: [id number] DATE: 11/26/2016 JOB ID: [id number] DATE: 11/30/2016 The patient appears clinically stable. She had a colonoscopy yesterday that showed an area of stricture at the hepatic flexure of the colon. There was no other significant abnormality in the remainder colon. The scope was not passed beyond that stricture due to tortuous nature of the colon wall and difficulty with advancing. Biopsies have been taken. The patient was able to take the colon prep liquid down, although some of that came out. She is in no apparent distress. Her abdomen is nontender. Vital signs reviewed and stable. ASSESSMENT AND PLAN: A 66-year-old lady with metastatic lobular carcinoma of the breast that has involved the small bowel at presentation in March 2016. I reviewed the current situation with the patient and her daughter today. The colonoscopy did show an area of a narrowing/stricture in the hepatic flexure of the colon, and I discussed that with Dr. Holm as well. Still, her symptoms do not necessarily fit to this area and are more supportive of upper GI issues. to proceed with endoscopic ultrasound later today by Dr. De La Cruz. If the expected pathology can be confirmed in that location, Dr. Holm would then be willing to place a duodenal stent and we would proceed with systemic chemotherapy next week. However, otherwise the patient will require a diagnostic laparoscopy. Dr. Holm thought that the patient is able to get liquids down to some degree, as she was able to go to through the colonoscopy prep. Again her tumor marker has not significantly changed compared to four weeks ago. I talked to her about a choice of chemotherapy, and overall would suggest to treat her with Doxil single-agent to improve the odds of earlier response, even though she technically did not develop progression on the induction therapy with Taxotere and Cytoxan back in 2014, and since early 2014, she has been on hormonal manipulations alone. The Doxil dose would be at 60 mg/m2 IV every four weeks. If surgery, in form of diagnostic laparoscopy, is not performed early next week, we plan to administer the first dose on Saturday.
[2016-12-01] MEDS: Heparin 5,000 Unit/mL Inj SUBQ SCH ×3 (01:34→16:54)
[2016-12-01] MEDS: Piperacillin-Tazo 3.375 Gm Inj 3.375 GM in Dextrose 5% Minibag Plus 50 ML IV SCH ×2 (01:48→10:00)
--- NOTE | 2016-12-01 04:22 | NUR ---
Activity/Diet Patient had c/o increasing head/neck ache this shift stating "I think it's because of how I am laying". Held/delayed PO Tylenol because NPO diet had not been advanced post EDG. Notified MD. Diet advancement from NPO to clears was written in Dr. De La Cruz's endoscopy note, confirmed advanced diet to clears with charge manager. Patient tolerated PO Tylenol with sips of water very well. Ice pack helps with the pain as well.
[2016-12-01 04:46] VITALS: BP 152/87; PULSE 81; RESP 20; O2SAT 98
--- NOTE | 2016-12-01 09:23 | PCM.PNMED ---
Subjective Date of Service Dec 01, 2016 Subjective Patient seen and examined. Mildy depressed and anxious. Vitals stable. Exam Vital Signs Vital Sign - Last Date Time Temp Pulse Resp B/P Pulse Ox O2 Delivery O2 Flow Rate FiO2 12/01/16 04:46 36.6 81 20 152/87 98 Room Air 11/27/16 17:44 4 Intake and Output 11/30/16 11/30/16 12/01/16 Cumulative From/Thru 15:00 23:00 07:00 11/26/16 10:44 - 12/01/16 06:28 Intake Total 600 ml 1500 ml 364 ml 60187 ml Output Total 800 ml 5385 ml Balance -200 ml 1500 ml 364 ml 6142 ml Intake Oral 600 ml 200 ml 250 ml 4290 ml IV Total 1300 ml 114 ml 7237 ml Output Urine Total 800 ml 3800 ml Stool Total 410 ml Emesis 1175 ml # Voids 4 4 2 24 # Bowel Movements 0 0 0 Exam General: No acute distress, well-developed, well-nourished, appropriately interactive Cardiovascular: Regular rate and rhythm with no murmurs, rubs, or gallops appreciated Pulmonary: Clear to auscultation bilaterally with no crackles, wheezes, or rhonchi. Normal respiratory effort with no use of accessory muscles. Abdomen: Bowel tones present. Soft, mildly tender diffusely, nondistended. No hepatosplenomegaly or masses appreciated. Extremities: No clubbing, cyanosis, or lymphadenopathy appreciated. Mild lower extremity edema up the ankles. Skin: Normal temperature, turgor, and texture; no rash, ulcers, or subcutaneous nodules appreciated. Lab and Diagnostics Result Diagram: 11/30/16 0611 11/29/16 0550 X-Rays, CTs and MRIs CT ABDOMEN AND PELVIS WITH CONTRAST IMPRESSION: Severe ascending and transverse colonic wall thickening in keeping with an infectious or inflammatory (statistically less likely ischemic) colitis. Of note the appendix is not discretely identified therefore cannot entirely exclude acute appendicitis although probably less likely given the long segment involvement. Nonetheless, recommend clinical and laboratory correlation. Nonobstructive right renal calculus. L3 osseous metastasis as before, with unchanged appearance Dictated by: Benny Telles M.D. on 11/26/2016 at 14:18 Assessment & Plan Vernell Bailon is a 66-year-old woman with past medical history significant for ER positive HER-2 negative metastatic breast cancer which initially presented as small bowel obstruction secondary to diffuse small bowel infiltration was initially diagnosed in late 2013 who presents to the [facility] emergency department today due to nausea and vomiting and recurrent mild abdominal pain. Upper GI partial obstruction. active - Dr. Holm of gastroenterology on board. Patient had endoscopy with biopsy negative for malignancy , a stenosed, somewhat constricted region between D1 and D2. - Had colonoscopy , multiple strictures - Had endsocopical US yesterday, unsuccessful due to stricture, next step - laproscopy , will touch base with Dr. Carlin and Dr. Gusman Transverse and ascending colon colitis concerning for typhlitis, present remission, resolved - Colonoscopy done yesterday, no signs of active inflammation -symptoms resolved -Stool PCR -ve for any pathogens Metastatic ER positive, HER-2 negative breast cancer, present on admission, active -Tumor marker 123, not a huge change from previous one (119) - plan is to do endoscopic US today, take biopsies, waiting for pathology , if tumor stent to be placed, otherwise laproscopy next week - per Dr. Carlin : "She has not seen any chemotherapy of hormonal agents and therefore has a number of options of chemotherapeutic intervention including re-treatment with Taxotere and Cytoxan or single agent Doxil or a combination of AC. I am hopeful that if the current symptoms can be controlled and bypassed, that the patient can resume chemotherapy and respond agai" - Dr. Gusman, Dr. Carlin, Dr. Holm on board Leukopenia secondary to cytotoxic agent, present on admission, active - WBCs - 1.9 today, stable -Continue to monitor Hypertension, present on admission, active -Hold home medications at this time. CODE STATUS: DNR/DNI Dispo: likely home pending clinical improvement . VTE Prophylaxis: SCDs VTE Mechanical Devices: Intermittant Pneumatic CD Resuscitation Status: DNR/DNI:Do Not Resuscitate/Intubate Time spent 35 mins Fab Solorio MD Dec 01, 2016 09:23
[2016-12-01 09:26] VITALS: BP 166/99; PULSE 79; RESP 14; O2SAT 98
[2016-12-01] MEDS: Pantoprazole 20 mg ER24 Tablet PO SCH (09:58)
--- NOTE | 2016-12-01 10:03 | PROG NOTE ---
[address] [address] PROGRESS NOTE PATIENT: ASHU OLMEDO : 1950 MR#: [id number] ADMIT: 11/26/2016 JOB ID: [id number] DATE: 12/01/2016 SUBJECTIVE: The patient has done well following the endoscopic ultrasound last night by Dr. De La Cruz. She has a stenotic region in the postbulbar section of the duodenum as previously identified but there were no obvious targets for further tissue sampling. OBJECTIVE: The patient is in no distress. Alert, oriented, appropriate, cooperative, conversational. LABORATORIES: White count 1.9, hemoglobin 8.9, hematocrit 26.1, platelets 134. ASSESSMENT AND RECOMMENDATIONS: A 66-year-old female with metastatic breast cancer. She has been struggling with obstructive symptoms. Her subacute presentation has essentially resolved. She has moderate stenosis/stricturing in the postbulbar region of the duodenum and even at around the splenic flexure in the colon. The histology is still pending for the splenic flexure biopsies. The plan is a full liquid smoothie consistency diet until pathology is back. If pathology is completely negative, the patient will need a diagnostic laparoscopy. Moving forward from there, therapeutic options contingent on findings at diagnostic laparoscopy would be to pursue a gastrojejunostomy bypass versus duodenal stent deployment. COMMENT: This is a no charge physician visit. Today is the Sabbath. Please do not submit physician charge for this particular note.
[2016-12-01 13:22] VITALS: BP 139/94; PULSE 87; RESP 16; O2SAT 97
--- NOTE | 2016-12-01 13:27 | PCM.PNSURG ---
Subjective Date of Service: Dec 01, 2016 Date of Service: Dec 01, 2016 Visit Information: Reason for Visit Typhlitis, Gastric Outlet Obstruction Surgery/Surgery Date Post-Op Day # Date of Admission: Nov 26, 2016 at 16:48 Hospital Day #6 Subjective: Seen today; family at bedside. Hoped for more answers from recent studies. Aware of potential surg procedure poss on Saturday-->Diag lap +/-stent and +/- chemo. Happy with providers concern for her. Tolerating diet. No pain. Postop General: No Complaints, No Shortness of Breath, No Chest Pain Gastrointestinal: Tolerating Oral Feedings, No N/V Postop Activity: Ambulating Independently Objective Objective Pleasant female in no distress. Afebrile. Vital Sign- Last 8 Hours Date Time Temp Pulse Resp B/P Pulse Ox O2 Delivery O2 Flow Rate FiO2 12/01/16 13:22 36.8 87 16 139/94 97 Room Air 12/01/16 09:26 37.0 79 14 166/99 98 Room Air Intake and Output- Last 8 Hour 12/01/16 Cumulative From/Thru 07:00 11/26/16 10:44 - 12/01/16 06:28 Intake Total 364 ml 37835 ml Output Total 5385 ml Balance 364 ml 6142 ml Intake Oral 250 ml 4290 ml IV Total 114 ml 7237 ml Output Urine Total 3800 ml Stool Total 410 ml Emesis 1175 ml # Voids 2 24 # Bowel Movements 0 Neck: Supple Lungs: Clear to Auscultation Heart: Exam Unremarkable Abdomen: Benign Result Diagram: 11/30/16 0611 12/01/16 0935 Diagnostics: PROCEDURE: EUS exam. INDICATION: Gastric outlet obstruction. Rule out extrinsic mass. PROCEDURE DETAILS: After informed consent was obtained, patient was brought into the GI suite, where she was placed on oxygen via nasal cannula and monitored with continuous pulse oximeter, telemetry, and blood pressure monitoring. A time-out was performed. Then, she was placed in a left lateral decubitus position and medications were administered for sedation. A bite block was placed. Standard upper endoscope was then introduced through the bite block and advanced without difficulty to the distal duodenal bulb. Here, I encountered significant edema and narrowing of the lumen. However, with gentle pressure, we were able to advance the scope to the second portion of the duodenum which appeared normal. The scope was then withdrawn, and as the scope was withdrawn back from the proximal 2nd portion of duodenum into the duodenal bulb, the mucosa appeared to edematous and friable. Normal-appearing pylorus antrum and gastric body. Retroflexed views in the gastric body revealed a normal-appearing cardia and fundus. Normal-appearing GE junction. Normal-appearing esophagus. IMPRESSION: Incomplete EUS exam as we were unable to advance the scope beyond the distal duodenal bulb secondary to stricturing. No obvious mass lesions seen to explain stricture in the duodenum. RECOMMENDATIONS: 1. Consider diagnostic laparoscopy and possible gastric bypass. 2. Start clear liquid diet. 3. Dr. Holm will follow the patient over the weekend. Assessment & Plan Impression A 66-year-old female with metastatic breast cancer. Partial duodenal/bowel obstruction 2/2 moderate stenosis/stricturing in the postbulbar region of the duodenum and splenic flexure in the colon. Problems: Plan Continue diet per GI Await pathology Likely Dx Lap Saturday- on books w/Parimi NPO p MN tomorrow (Alisha hutchison) VTE Prophylaxis: SCDs Resuscitation Status: DNR/DNI:Do Not Resuscitate/Intubate Jeff Morrison PA-C Dec 01, 2016 13:27
--- NOTE | 2016-12-01 16:32 | NUR ---
Social Work- Multidisciplinary Rounds Pt discussed in rounds. No social work needs identified in rounds. SW unable to see pt today due to high census. SW will continue to follow. SOFÍA Gilman
--- NOTE | 2016-12-01 17:17 | NUR ---
Activity Pt. ambulated over a mile today in the hallway. Per , pt allowed to go to courtyard accompanied by family member. Tolerating full liquid diet very well.
[2016-12-01 21:00] VITALS: BP 140/89; PULSE 77; RESP 18; O2SAT 98
[2016-12-02] MEDS: Heparin 5,000 Unit/mL Inj SUBQ SCH ×3 (00:30→15:35)
--- NOTE | 2016-12-02 03:46 | NUR ---
Activity/K-pad Patient up walking multiple laps around unit independently. Gait steady. Denies lightheadedness or dizziness. Denies pain when asked. States there is some discomfort to back of neck and upper back area. Using K-pad with effective results. Noted to be resting with eyes closed a good part of the shift.
[2016-12-02 05:31] VITALS: BP 149/85; PULSE 74; RESP 16; O2SAT 99
[2016-12-02 06:16] LABS: BASOPHILS % (AUTO) 0.4 % (0-3); EOSINOPHILS % (AUTO) 4.3 % (0-5); MONOCYTES % (AUTO) 10.3 % (4-12); Mean Corpuscular Hemoglobin 34.3 pg (27.0-35.0); Mean Corpuscular Volume 98.6 fL (81-100); NEUTROPHILS % (AUTO) 48.2 % (40-74); Platelet Count 178 bil/L (150-400)
[2016-12-02] MEDS ORDERED: Potassium Chloride 20 mEq/15 mL 15mL Oral Soln PO ONE (07:25)
--- NOTE | 2016-12-02 08:39 | PCM.PNMED ---
Subjective Date of Service Dec 02, 2016 Subjective Patient seen and examined. Feels good. No complaints. Wants to know what will be the next step. Answered all the questions, will touch base with other teams regarding diagnostic lap tomorrow. Vitals stable. Exam Vital Signs Vital Sign - Last Date Time Temp Pulse Resp B/P Pulse Ox O2 Delivery O2 Flow Rate FiO2 12/02/16 05:31 36.6 74 16 149/85 99 Room Air 11/27/16 17:44 4 Intake and Output 12/01/16 12/01/16 12/02/16 Cumulative From/Thru 15:00 23:00 07:00 11/26/16 10:44 - 12/02/16 06:35 Intake Total 797 ml 750 ml 87409 ml Output Total 5385 ml Balance 797 ml 750 ml 7689 ml Intake Oral 677 ml 750 ml 5717 ml IV Total 120 ml 7357 ml Output Urine Total 3800 ml Stool Total 410 ml Emesis 1175 ml # Voids 6 4 34 # Bowel Movements 0 4 4 Lab and Diagnostics Result Diagram: 12/02/16 0543 12/01/16 0935 X-Rays, CTs and MRIs CT ABDOMEN AND PELVIS WITH CONTRAST IMPRESSION: Severe ascending and transverse colonic wall thickening in keeping with an infectious or inflammatory (statistically less likely ischemic) colitis. Of note the appendix is not discretely identified therefore cannot entirely exclude acute appendicitis although probably less likely given the long segment involvement. Nonetheless, recommend clinical and laboratory correlation. Nonobstructive right renal calculus. L3 osseous metastasis as before, with unchanged appearance Dictated by: Benny Telles M.D. on 11/26/2016 at 14:18 Assessment & Plan Vernell Bailon is a 66-year-old woman with past medical history significant for ER positive HER-2 negative metastatic breast cancer which initially presented as small bowel obstruction secondary to diffuse small bowel infiltration was initially diagnosed in late 2013 who presents to the [facility] emergency department today due to nausea and vomiting and recurrent mild abdominal pain. Upper GI partial obstruction. active - Patient had endoscopy with biopsy negative for malignancy , a stenosed, somewhat constricted region between D1 and D2. - Had colonoscopy , multiple strictures (splenic flexure in the colon) - Had endsocopical US , unsuccessful due to stricture, next step - diagnostic laproscopy Saturday - Surgery , GI and Onc on board Transverse and ascending colon colitis concerning for typhlitis, present remission, resolved - Colonoscopy done yesterday, no signs of active inflammation -symptoms resolved -Stool PCR -ve for any pathogens Metastatic ER positive, HER-2 negative breast cancer, present on admission, active -Tumor marker 123, not a huge change from previous one (119) - plan is to do endoscopic US today, take biopsies, waiting for pathology , if tumor stent to be placed, otherwise laproscopy next week - per Dr. Carlin : "She has not seen any chemotherapy of hormonal agents and therefore has a number of options of chemotherapeutic intervention including re-treatment with Taxotere and Cytoxan or single agent Doxil or a combination of AC. I am hopeful that if the current symptoms can be controlled and bypassed, that the patient can resume chemotherapy and respond agai" - Dr. Gusman, Dr. Carlin, Dr. Holm on board Leukopenia secondary to cytotoxic agent, present on admission, active - WBCs 2.3 today, stable -Continue to monitor Hypertension, present on admission, active -consistently high, dose of lisinopril increased to 20mg daily - will monitor CODE STATUS: DNR/DNI Dispo: likely home pending clinical improvement . VTE Prophylaxis: SCDs VTE Mechanical Devices: Intermittant Pneumatic CD Resuscitation Status: DNR/DNI:Do Not Resuscitate/Intubate Time spent 35 ,mins Fab Solorio MD Dec 02, 2016 08:39
[2016-12-02 08:55] VITALS: BP 150/80; PULSE 83; RESP 14; O2SAT 99
[2016-12-02] MEDS: Pantoprazole 20 mg ER24 Tablet PO SCH (09:01)
[2016-12-02] MEDS: LORazepam 0.5 mg Tablet PO PRN ×2 (11:45→23:18)
[2016-12-02 12:56] VITALS: BP 163/104; PULSE 82; RESP 18; O2SAT 98
--- NOTE | 2016-12-02 13:01 | NUR ---
No IV access IV leaking and dc'd this morning. Not requiring any IV medications of fluids and MD says it is ok not to have any IV access.
--- NOTE | 2016-12-02 16:19 | NUR ---
Social Work- Continued D/C Planning/Multidisciplinary Rounds Data: Pt is on day 6 of hospitalization. Pt is not medically ready for discharge. Pt discussed in rounds. Surgery is involved. SW unable to see pt today due to high census. SW will continue to follow for discharge planning. Assessment: Pt who is independent at baseline. Plan: SW will continue to follow. Pt is independent at baseline. SOFÍA Gilman
--- NOTE | 2016-12-02 17:22 | PROG NOTE ---
[address] [address] PROGRESS NOTE PATIENT: ASHU OLMEDO : 1950 MR#: [id number] ADMIT: 11/26/2016 JOB ID: [id number] DATE: 12/02/2016 SUBJECTIVE: The patient is doing quite well clinically. She has done several laps in the unit. She tolerated the smoothie full liquid diet without any difficulty. Bowel movements are uncomplicated at present. She is not having any further emesis. OBJECTIVE: The patient was fully ambulatory in the hallways, as mentioned above. Vital signs are stable. Blood pressure is a little elevated. LABORATORIES: CBC is stable. Basic metabolic panel fairly unremarkable. Potassium a little on the low side. CA 27-29 was elevated. ASSESSMENT AND RECOMMENDATIONS: This is a 66-year-old female with metastatic breast cancer. Originally, she presented with an atypical small-bowel obstruction and we suspect that she may have further multifocal bowel involvement, but most recent biopsies in the duodenum were completely nondiagnostic and at EUS we were not able to find any obvious targets for tissue acquisition. I spent some time discussing the case with Dr. Carlin and Dr. Meléndez. The colon biopsy from the splenic flexure is still pending. I think it would be reasonable to hold off on any form of surgical intervention until after the histology is reviewed. One possible option moving forward is really to not proceed with any surgical intervention at present and simply see how she does with the chemotherapy that is planned by Dr. Carlin and see how she gets on. Should obstructive symptoms recur then, of course, we could revisit the idea of a gastrojejunostomy bypass versus duodenal stenting versus colon bypassing, etc. That said, if the histology is completely negative, then I do still believe it would be appropriate to, at the very least, consider a diagnostic laparoscopy with the view to establish a clear-cut tissue diagnosis with respect to how much bowel involvement is truly present in the neoplastic process.
[2016-12-02 20:08] VITALS: BP 166/98; PULSE 89; RESP 15; O2SAT 99
[2016-12-03] VITALS (12 sets, daily range): BP systolic 136–171; BP diastolic 80–97; PULSE 70–90; RESP 12–18; O2SAT 98–100
[2016-12-03] MEDS: Heparin 5,000 Unit/mL Inj SUBQ SCH ×3 (00:30→16:30)
--- NOTE | 2016-12-03 02:36 | NUR ---
Nausea/bloating Pt reporting increased nausea and bloating this shift. Discussed options with pt and she declined to have IV started to get IV anti nausea meds, so instead we tried PO Ativan. This was helpful at first, but pt did end up vomiting and immediately felt better afterwards. Pt also reporting neck pain 10/20 and was given 650 mg PO Tylenol and Ice to apply to back. Pt currently sleeping and appears comfortable.
[2016-12-03] MEDS ORDERED: Lactated Ringer's 1,000 ML IV ONE ×2 (05:00→11:39)
--- NOTE | 2016-12-03 05:47 | NUR ---
NPO Pt has been NPO since midnight as pathology results should be back this morning.
[2016-12-03] MEDS ORDERED: Neostigmine 1 mg/mL 10 mL Inj ONE (07:58)
[2016-12-03] MEDS ORDERED: Propofol 10,000 mCg/mL 20 mL Inj ONE (07:58)
[2016-12-03] MEDS ORDERED: fentaNYL-PF 50 mCg/mL 2 mL Inj ONE (07:58)
[2016-12-03] MEDS ORDERED: Succinylcholine Chloride 20 mg/mL 5 mL Inj ONE (07:58)
[2016-12-03] MEDS ORDERED: Rocuronium 10 mg/mL 5 mL Inj ONE (07:58)
[2016-12-03] MEDS ORDERED: Glycopyrrolate 0.2 MG/ML 1mL Inj ONE (07:58)
[2016-12-03] MEDS ORDERED: Remifentanil 1 mg/3 mL Inj ONE (07:58)
[2016-12-03] MEDS ORDERED: Dexamethasone 4 mg/mL Inj ONE (07:58)
[2016-12-03] MEDS ORDERED: Ondansetron 2 mg/mL 2 mL Inj ONE (07:58)
[2016-12-03] MEDS ORDERED: HYDROmorphone 1 mg/mL Inj ONE (07:58)
[2016-12-03] MEDS ORDERED: Sodium Chloride LOK Flush 10 mL Syringe IVFLUSH PRN ×2 (08:45)
--- NOTE | 2016-12-03 08:48 | PCM.PNMED ---
Subjective Date of Service Dec 03, 2016 Subjective Patient seen and examined today. She vomited yesterday. Was not able to keep food down. Vitals stable. Exam Vital Signs Vital Sign - Last Date Time Temp Pulse Resp B/P Pulse Ox O2 Delivery O2 Flow Rate FiO2 12/03/16 05:05 37.1 78 16 136/83 98 Room Air 11/27/16 17:44 4 Intake and Output 12/02/16 12/02/16 12/03/16 Cumulative From/Thru 15:00 23:00 07:00 11/26/16 10:44 - 12/03/16 06:38 Intake Total 1135 ml 600 ml 55991 ml Output Total 900 ml 6285 ml Balance 1135 ml -300 ml 8524 ml Intake Oral 1135 ml 600 ml 7452 ml IV Total 0 ml 7357 ml Output Urine Total 3800 ml Stool Total 410 ml Emesis 900 ml 2075 ml # Voids 5 3 42 # Bowel Movements 5 9 Exam General: No acute distress, well-developed, well-nourished, appropriately interactive Cardiovascular: Regular rate and rhythm with no murmurs, rubs, or gallops appreciated Pulmonary: Clear to auscultation bilaterally with no crackles, wheezes, or rhonchi. Normal respiratory effort with no use of accessory muscles. Abdomen: Bowel tones present. Soft, mildly tender diffusely, nondistended. No hepatosplenomegaly or masses appreciated. Extremities: No clubbing, cyanosis, or lymphadenopathy appreciated. Mild lower extremity edema up the ankles. Skin: Normal temperature, turgor, and texture; no rash, ulcers, or subcutaneous nodules appreciated. Lab and Diagnostics Result Diagram: 12/02/16 0543 12/01/16 0935 X-Rays, CTs and MRIs CT ABDOMEN AND PELVIS WITH CONTRAST IMPRESSION: Severe ascending and transverse colonic wall thickening in keeping with an infectious or inflammatory (statistically less likely ischemic) colitis. Of note the appendix is not discretely identified therefore cannot entirely exclude acute appendicitis although probably less likely given the long segment involvement. Nonetheless, recommend clinical and laboratory correlation. Nonobstructive right renal calculus. L3 osseous metastasis as before, with unchanged appearance Dictated by: Benny Telles M.D. on 11/26/2016 at 14:18 Assessment & Plan Vernell Bailon is a 66-year-old woman with past medical history significant for ER positive HER-2 negative metastatic breast cancer which initially presented as small bowel obstruction secondary to diffuse small bowel infiltration was initially diagnosed in late 2013 who presents to the [facility] emergency department today due to nausea and vomiting and recurrent mild abdominal pain. Upper GI partial obstruction. active - Patient had endoscopy with biopsy negative for malignancy , a stenosed, somewhat constricted region between D1 and D2. - Had colonoscopy , multiple strictures (splenic flexure in the colon) - Had endsocopical US , unsuccessful due to stricture, next step - diagnostic laproscopy today - Surgery , GI and Onc on board Transverse and ascending colon colitis concerning for typhlitis, present remission, resolved - Colonoscopy done, no signs of active inflammation -symptoms resolved -Stool PCR -ve for any pathogens Metastatic ER positive, HER-2 negative breast cancer, present on admission, active -Tumor marker 123, not a huge change from previous one (119) - plan is to do endoscopic US today, take biopsies, waiting for pathology , if tumor stent to be placed, otherwise laproscopy next week - per Dr. Carlin : "She has not seen any chemotherapy of hormonal agents and therefore has a number of options of chemotherapeutic intervention including re-treatment with Taxotere and Cytoxan or single agent Doxil or a combination of AC. I am hopeful that if the current symptoms can be controlled and bypassed, that the patient can resume chemotherapy and respond agai" - Dr. Gusman, Dr. Carlin, Dr. Holm on board Leukopenia secondary to cytotoxic agent, present on admission, active - WBCs 2.3 today, stable -Continue to monitor Hypertension, present on admission, active -consistently high, dose of lisinopril increased to 20mg daily - will monitor Nutrition - patient to get exp lap today, possible gastric bypass - will need picc line and tpn CODE STATUS: DNR/DNI Dispo: pending clinical improvement . VTE Prophylaxis: SCDs VTE Mechanical Devices: Intermittant Pneumatic CD Resuscitation Status: DNR/DNI:Do Not Resuscitate/Intubate Time spent 35 mins Fab Solorio MD Dec 03, 2016 08:48
[2016-12-03] MEDS: Pantoprazole 20 mg ER24 Tablet PO SCH (09:15)
[2016-12-03 10:00] LABS: Magnesium 1.8 mg/dL (1.6-2.6); Phosphorus 2.4 mg/dL (2.5-4.9)
--- NOTE | 2016-12-03 11:50 | NUR ---
Off Unit to OR at 1120; left via gurney. A&Ox3, CERON, Void prior to pickup, Jewelry removed and left behind in room, IV SL placed by IV Therapy - with goal of getting PICC placed post recovery prior to return to [facility], Consent signed, Report given to CAR SEALERCHETAN Paez prior to pickup. Await pt return. Addendum: 12/03/16 at 1641 by VAISHNAVI AVILA RN Return to [facility] unit, from PICC suite post OR. Back at 1615. Pt able to scoot over from PICC suite gurney to pt bed that was brought up to PICC suite with pt retrieval. A&Ox3 - groggy, stating feeling thirsty and needing to go to BR. Upon arrival to [facility], 1025, pt SBA to BR, IV SL = patent, No current c/o pain, 4x lap sites with steristrips and bandaids to abdomen, NG in place to right nare - connected to low continuous suction, NG secured to pt gown, pt present at bedside, mouth swabs provided to pt. Care continues.
--- NOTE | 2016-12-03 11:55 | PATH ---
SURGICAL PATHOLOGY Attending Physician:Johan Velazco CASE STATUS: Signed Out PATIENT NAME: ASHU OLMEDO PID: [id number] : 1950 DATE COLLECTED:11/29/2016 00:00 SPECIMEN: Colon, Biopsy CLINICAL HISTORY: ABNORMAL IMAGING 1). BIOPSIES AT 60 CM FINAL DIAGNOSIS: 1.BIOPSY OF COLON AT 60 CM: FRAGMENTS OF NORMAL-APPEARING COLON MUCOSA. Negative for significant architectural distortion. Negative for significant inflammation, dysplasia and malignancy. ICD10 R93.3 GROSS DESCRIPTION: Received in formalin, labeled with the patient' s name and "biopsies at 60 cm", are two fragments of licea, soft tissue ranging in size from 0.1 x 0.1 x 0.1 cm to 0.2 x 0.1 x 0.1 cm. All fragments are totally submitted in one cassette. ([id number]) MICRO DESCRIPTION: See diagnosis. ICD-9 CODES: CPT CODES: 1: 00490 Electronically Signed Out Giancarlo Vieira MD [facility] [address], [place] [address] Technical component performed at [facility], [address] [place] [address] Ave, [address], [place], [address]
[2016-12-03] MEDS ORDERED: Cefotetan Inj 2,000 MG in IV Premix 1 EACH IV ONE (11:56)
[2016-12-03] MEDS ORDERED: Bupivacaine-MPF 0.5% 30 mL Inj INFILTRATE ONE (12:00)
--- NOTE | 2016-12-03 12:02 | PCM.CONPHA ---
Subjective Date of Service: Dec 03, 2016 Reason for Pharmacy Consult: TPN Management Objective Vital Signs Date Time Temp Pulse Resp B/P Pulse Ox O2 Delivery O2 Flow Rate FiO2 12/03/16 05:05 37.1 78 16 136/83 98 Room Air 12/02/16 20:08 36.9 89 15 166/98 99 Room Air 12/02/16 12:56 36.5 82 18 163/104 98 Room Air Intake and Output 12/01/16 12/02/16 12/03/16 00:00 00:00 00:00 Intake Total 3191 ml 1161 ml 1885 ml Output Total 800 ml Balance 2391 ml 1161 ml 1885 ml Weight (Kilograms): 74.800 Height (Feet): 5 Height (Inches): 8.00 Test 11/26/16 11:05 11/26/16 11:37 11/26/16 12:04 11/28/16 08:45 Urine Color Yellow (YELLOW) Urine Appearance Clear (CLEAR,HAZY) Urine pH 6.5 (5.0-8.0) Urine Specific [place] 1.020 (1.003-1.035) Urine Protein 30mg/dL (NEG,TRACE) Urine Glucose (UA) Negativemg/dL (NEGATIVE) Urine Ketones Negativemg/dL (NEGATIVE) Urine Occult Blood Negative (NEGATIVE) Urine Nitrite Negative (NEGATIVE) Urine Bilirubin Negative (NEGATIVE) Urine Urobilinogen Normalmg/dL (NORMAL) Urine Leukocyte Esterase Negative (NEGATIVE) Urine RBC 0-2/hpf (0-2) Urine WBC 0-5/hpf (0-5) Urine Epithelial Cells Occasional/hpf (NONE-MOD) Urine Crystals None seen (NONE SEEN) Urine Bacteria None/hpf (NONE-FEW) Urine Hyaline Casts None/lpf (NONE) Urine Granular Casts None seen (NONE SEEN) Urine Waxy Casts None seen (NONE SEEN) Urine Red Blood Cell Casts None seen (NONE SEEN) Urine White Blood Cell Casts None seen (NONE SEEN) Urine Mucus Present (None Seen) Urine Trichomonas None seen (NONE SEEN) Urine Yeast None (NONE SEEN) Urinalysis Comment None Urine Culture Reflexed Not indicated Hold Urine Received (Received) Lipase 193U/L (13-60) Procalcitonin 0.05ng/mL (0.00-0.08) Lactic Acid Level 1.3mmol/L (0.4-2.0) Hold Ospina Top Tube Received (Received) CA 27.29 123.7U/mL (0.0-38.6) Test 11/30/16 06:11 12/02/16 05:43 12/03/16 09:10 Prothrombin Time 11.2sec (8.1-12.5) Prothromb Time International Ratio 1.05ratio White Blood Count 2.3th/mm3 (3.8-10.1) Red Blood Count 2.89mil/mm3 (3.90-5.20) Hemoglobin 9.9g/dL (12.0-15.6) Hematocrit 28.5% (35.0-46.0) Mean Corpuscular Volume 98.6fL (81-100) Mean Corpuscular Hemoglobin 34.3pg (27.0-35.0) Mean Corpuscular Hemoglobin Concent 34.7% (32.0-37.0) Red Cell Distribution Width 13.5% (12.3-15.4) Platelet Count 178bil/L (150-400) Neutrophils (%) (Auto) 48.2% (40-74) Lymphocytes (%) (Auto) 36.8% (14-46) Monocytes (%) (Auto) 10.3% (4-12) Eosinophils (%) (Auto) 4.3% (0-5) Basophils (%) (Auto) 0.4% (0-3) Sodium Level 141mEq/L (134-144) Potassium Level 4.0mEq/L (3.5-5.2) Chloride Level 101mEq/L (97-108) Carbon Dioxide Level 21mmol/L (18-29) Blood Urea Nitrogen 12mg/dL (8-27) Creatinine 0.66mg/dL (0.57-1.00) Estimat Glomerular Filtration Rate 128mL/min (>59) Glucose Level 88mg/dL (60-99) Calcium Level 10.3mg/dL (8.5-10.1) Phosphorus Level 2.4mg/dL (2.5-4.9) Magnesium Level 1.8mg/dL (1.6-2.6) Total Bilirubin 0.5mg/dL (0.0-1.2) Aspartate Amino Transf (AST/SGOT) 30U/L (0-50) Alanine Aminotransferase (ALT/SGPT) 22U/L (0-32) Alkaline Phosphatase 61U/L (25-165) Total Protein 6.7g/dL (6.4-8.4) Albumin 4.3g/dL (3.4-5.0) Triglycerides Level 158mg/dL (0-149) Assessment/Plan Assessment/Plan Pt starting TPN. Labs as above, pt's phos low. Will replace phos with a 40mEq NaPhos rider prior to starting TPN. PARENTERAL NUTRITION ORDERS 1 03-Dec-16 Standard Hang Time: 2100 Substrates Total kcal: 960 AMINO ACIDS 50 g DEXTROSE 150 g Total Volume (mL): 1000 LIPIDS 25 g Sterile Water for Injection mL To Infuse Over (hrs): 24 Total Volume 1000 mL At at a rate of (mL/hr): 42 Additives Sodium Chloride 60 mEq "typical" daily requirements Sodium Acetate mEq Sodium 50-120mEq Potassium Chloride 10 mEq Potassium 60-120mEq Potassium Phosphate 20 mEq Phosphate 20-40mEq Calcium Gluconate 4.65 mEq Magnesium 8-32mEq Magnesium Sulfate 8 mEq Calcium 9-22mEq Acetate* 80-120mEq Chloride* 80-120mEq Regular Insulin units *Depending on acid-base status Famotidine mg Multivitamins 1 std dose Insulin Regimen Trace Elements 1 std dose none Thiamine mg Regular Low Intensity Subcut Folic Acid mg Regular Medium Intensity Subcut Ascorbic Acid mg Regular High Intensity Subcut Regular Insulin Infusion Other: Special Instructions: To be infused via central line only. For delay or inturruption of TPN contact the pharmacist for alternative replacement solution. Indira Luque PharmD Dec 03, 2016 12:02
[2016-12-03] MEDS ORDERED: Lactated Ringer's 500 ML IV PRN (12:11)
[2016-12-03] MEDS ORDERED: Lactated Ringer's 1,000 ML IV SCH (12:11)
--- NOTE | 2016-12-03 12:11 | PCM.HPANE ---
Patient Data Surgeon Admitting Provider:Fab Solorio MD Attending Provider:Fab Solorio MD Primary Care Physician:Karen Lopez PA-C Other Provider: Reason for Visit Typhlitis, Gastric Outlet Obstruction TYPHLITIS Ht/WT & BMI Height (Feet): 5 Height (Inches): 8.00 Weight (Kilograms): 74.800 Body Mass Index 24.00 Allergies Coded Allergies: meperidine (Verified Allergy, Severe, Nausea,Vomiting, 11/26/16) Past Anesthesia History Anesthesia History: Positive for:: Anesthesia Reactions (DEMEROL AFTER SURGERY) , Denies:: Abnormal Airway, Difficult Intubation, Fam Anesthesia Reaction, Fam Malignant Hypertherm, Malignant Hyperthermia Diabetes History Hx Diabetes?: No Current Bedside Blood Glucose: 95 MRSA MRSA: No Medications Reported Medications Fulvestrant (Faslodex)250 Mg/Syr SyringeUnknown Dose IM every 28 days 11/26/16 Letrozole 2.5 Mg Tablet2.5 Mg PO DAILY Ref 0 11/07/16 Palbociclib (Ibrance)125 Mg [id number] Mg PO [id number],off 7 08/13/16 Lisinopril 10 Mg [id number] Mg PO DAILY #30 TABLET Ref 6 03/21/16 Calcium Carbonate (Calcium)600 Mg [id number] Mg PO DAILY 06/29/15 Multivitamin (Multivitamins)1 Each Capsule1 Each PO DAILY 06/10/15 History History of ENT Problems?: Yes HEENT History: Positive for:: Sinus Problem (SEASONAL ALLERGIES.) Denies:: Abnormal Airway Cataracts Difficult Intubation Dysphagia Hearing Problem Denture Type: None Teeth Condition: Within Normal Limits Hx of Heart Problems?: Yes Cardiovascular History: Positive for:: Hypertension Denies:: AICD Atrial Fibrillation Cardiac Surgery Chest Pain Congestive Heart Failure Edema Heart Murmur Irregular Heartbeat Pacemaker Thrombophlebitis Valvular Heart Disease Hx of Respiratory Problem?: No Respiratory History: Denies:: Asthma COPD Chest Surgery Cough Dyspnea Emphysema Hemoptysis Pneumonia Tuberculosis Hx Neurologic Problems?: Yes Neurological History: Positive for:: Headaches (MIGRAINE) Denies:: Alzheimer's Disease CVA Dementia Dizziness Parkinson's Disease Seizures Hx of GI Problems?: Yes Hx of Problems?: No Genitourinary History: Denies:: HX of Hemodialysis Kidney Stones Urinary Tract Infection HX of Peritoneal Dialysis: No Female Hx: Denies:: Currently Endometriosis Pelvic Inflammatory Problems with Breasts? Hx Musculoskeletal Problems?: Yes Musculoskeletal History: Positive for:: Back Injury Denies:: Fibromyalgia Joint Replacement Musculoskeletal Trauma Hx of Psycho/Social Problems?: Yes Psycho Social History: Positive for:: Anxiety Denies:: Bipolar Disorder Hx Depression Suicide Attempt Hx Surgeries?: Yes (TONSILLECTOMY, APPENDENCTOMY, KNEE SURGERY) Hx Any Other Health Problems?: Yes Other History: Positive for:: Cancer (metastatic breast cancer) Hospitalization ([facility]ILDBIRTH, [facility]) Denies:: Thyroid Disease History Blood Transfusions: Positive for:: Accept Blood Products? Denies:: Blood Transfuse Reaction Blood Transfusions Hx Diabetes: NoBedside Blood Glucose: 95 Hx Alcohol Use: NoHx Substance Use: No Smoking Status: Never Smoker Have You Smoked inLast 12 mo: No Stop/Bang Treated for Sleep Apnea?: No Do You Have a CPAP Machine?: No S-Snoring: Do You Snore Loudly: No T-Tired: feel tired, fatigued: No O-Obsered: Observed not breath: No P-Blood Pressure: treated: Yes B- Body Mass Index > 35 kg/m2: No A- Age over 50: Yes N- Neck Large Circumference: No G- Gender Male: No PENNY Total Score: 2 PENNY Risk Assessment: Low Risk, <3 Yes Risk Assessment Category Category 1A: Patient has history of documented sleep apnea, and HAS NOT received any narcotic, sedative or anesthesia administration during this stay. Category 1B: Patient has history of documented sleep apnea, and HAS received any narcotic , sedative or anesthesia administration during this stay Category 2: Patient has SUSPECTED Obstructive Sleep Apnea, and HAS received any narcotic , sedative or anesthesia administration during this stay. Category 3: Patient has SUSPECTED Obstructive Sleep Apnea and HAS NOT received narcotic, sedative or anesthesia administration during this stay. Category 4: Outpatient in Procedural Areas with known sleep apnea or who screen positive for High Risk via the STOP/BANG questionnaire. Low Risk, <3 Yes Exam Exam Vital Signs Vital Signs Date Time Temp Pulse Resp B/P Pulse Ox O2 Delivery O2 Flow Rate FiO2 12/03/16 05:05 37.1 78 16 136/83 98 Room Air General Appearance: Alert, Oriented X3, Cooperative, No Acute Distress HEENT/AIRWAY: MP 2, Neck Movement, Mouth Opening Lungs: Clear to Auscultation Heart: Exam Unremarkable Meds/Labs/Diagnostics Bedside Blood Glucose: 95 Labs Test 11/26/16 11:05 11/26/16 11:37 11/26/16 12:04 11/28/16 08:45 Urine Color Yellow (YELLOW) Urine Appearance Clear (CLEAR,HAZY) Urine pH 6.5 (5.0-8.0) Urine Specific [place] 1.020 (1.003-1.035) Urine Protein 30mg/dL (NEG,TRACE) Urine Glucose (UA) Negativemg/dL (NEGATIVE) Urine Ketones Negativemg/dL (NEGATIVE) Urine Occult Blood Negative (NEGATIVE) Urine Nitrite Negative (NEGATIVE) Urine Bilirubin Negative (NEGATIVE) Urine Urobilinogen Normalmg/dL (NORMAL) Urine Leukocyte Esterase Negative (NEGATIVE) Urine RBC 0-2/hpf (0-2) Urine WBC 0-5/hpf (0-5) Urine Epithelial Cells Occasional/hpf (NONE-MOD) Urine Crystals None seen (NONE SEEN) Urine Bacteria None/hpf (NONE-FEW) Urine Hyaline Casts None/lpf (NONE) Urine Granular Casts None seen (NONE SEEN) Urine Waxy Casts None seen (NONE SEEN) Urine Red Blood Cell Casts None seen (NONE SEEN) Urine White Blood Cell Casts None seen (NONE SEEN) Urine Mucus Present (None Seen) Urine Trichomonas None seen (NONE SEEN) Urine Yeast None (NONE SEEN) Urinalysis Comment None Urine Culture Reflexed Not indicated Hold Urine Received (Received) Lipase 193U/L (13-60) Procalcitonin 0.05ng/mL (0.00-0.08) Lactic Acid Level 1.3mmol/L (0.4-2.0) Hold Ospina Top Tube Received (Received) CA 27.29 123.7U/mL (0.0-38.6) Test 11/30/16 06:11 12/02/16 05:43 12/03/16 09:10 Prothrombin Time 11.2sec (8.1-12.5) Prothromb Time International Ratio 1.05ratio White Blood Count 2.3th/mm3 (3.8-10.1) Red Blood Count 2.89mil/mm3 (3.90-5.20) Hemoglobin 9.9g/dL (12.0-15.6) Hematocrit 28.5% (35.0-46.0) Mean Corpuscular Volume 98.6fL (81-100) Mean Corpuscular Hemoglobin 34.3pg (27.0-35.0) Mean Corpuscular Hemoglobin Concent 34.7% (32.0-37.0) Red Cell Distribution Width 13.5% (12.3-15.4) Platelet Count 178bil/L (150-400) Neutrophils (%) (Auto) 48.2% (40-74) Lymphocytes (%) (Auto) 36.8% (14-46) Monocytes (%) (Auto) 10.3% (4-12) Eosinophils (%) (Auto) 4.3% (0-5) Basophils (%) (Auto) 0.4% (0-3) Sodium Level 141mEq/L (134-144) Potassium Level 4.0mEq/L (3.5-5.2) Chloride Level 101mEq/L (97-108) Carbon Dioxide Level 21mmol/L (18-29) Blood Urea Nitrogen 12mg/dL (8-27) Creatinine 0.66mg/dL (0.57-1.00) Estimat Glomerular Filtration Rate 128mL/min (>59) Glucose Level 88mg/dL (60-99) Calcium Level 10.3mg/dL (8.5-10.1) Phosphorus Level 2.4mg/dL (2.5-4.9) Magnesium Level 1.8mg/dL (1.6-2.6) Total Bilirubin 0.5mg/dL (0.0-1.2) Aspartate Amino Transf (AST/SGOT) 30U/L (0-50) Alanine Aminotransferase (ALT/SGPT) 22U/L (0-32) Alkaline Phosphatase 61U/L (25-165) Total Protein 6.7g/dL (6.4-8.4) Albumin 4.3g/dL (3.4-5.0) Triglycerides Level 158mg/dL (0-149) Plan Impression Patient chart reviewed, patient interviewed and anesthestic plan with risks, benefits, and alternatives discussed, and informed consent obtained. NPO per Anesth. Guidelines: Yes ASA Physical Status: ASA3 Severe Disease Anesthetic Plan: GA, Epidural Bene/Risks/Altern/Consents: Yes HP Complete Prior to Induction: Yes Other Discussed GETA +/- post-op thoracic epidural if open procedure performed. Also discussed holding DNR/DNI during catia-operative period. Patient agrees to all this. All her questions were answered and she agrees to proceed. Shady Silverman MD Dec 03, 2016 11:09
[2016-12-03] MEDS ORDERED: fentaNYL-PF 50 mCg/mL 2 mL Inj IVPUSH PRN (12:15)
[2016-12-03] MEDS ORDERED: MetoCLOpramide 5 mg/mL 2 mL Inj IVPUSH PRN (12:15)
[2016-12-03] MEDS ORDERED: EPHEDrine Sulfate 50 mg/mL Inj IVPUSH PRN (12:15)
[2016-12-03] MEDS ORDERED: Ondansetron 2 mg/mL 2 mL Inj IVPUSH PRN (12:15)
[2016-12-03] MEDS ORDERED: Phenylephrine 10,000 mCg/mL Inj IVPUSH PRN (12:15)
[2016-12-03] MEDS ORDERED: HYDROmorphone 1 mg/mL Inj IVPUSH PRN (12:15)
[2016-12-03] MEDS ORDERED: Dexamethasone 4 mg/mL Inj IVPUSH PRN (12:15)
[2016-12-03] MEDS ORDERED: SODIUM CHLORIDE 0.9% IV ONE (14:00)
[2016-12-03] MEDS ORDERED: SODIUM PHOSPHATE IV ONE (14:00)
--- NOTE | 2016-12-03 14:07 | PCM.SURGPO ---
Immediate Operative Note Date of Surgery: Dec 03, 2016 Pre Operative Diagnosis Gastric outlet and colonic obstructions, possible metastatic breast cancer Post Operative Diagnosis Metastatic Adenocarcinoma with duodenal obstruction Procedure Diagnostic laparoscopy, lysis of adhesions, biopsies Surgeon and Soap Grinder Surgeon: Malini Gusman MD Assistants: Rajan Mcallister, PAC Findings Multifocal metastatic disease predominantly appears to involve the colon, causing also a duodenal obstruction Complications There were no periprocedural complications identified. Surgical Specimen Removed: Yes Specimen sent to Pathology: Yes Anesthetic Administered: GA Grafts, Implants: None Output, Estimated Blood Loss: 0 Blood Admin during surgery: No (0) Attending Statement assistant press operator listed was medically necessary for the successful completion of the case Malini Gusman MD Dec 03, 2016 14:07
--- NOTE | 2016-12-03 14:50 | PCM.ANEP1 ---
Post Anesthesia PACU Phase 1 Assessment Vital Signs Vital Signs Date Time Temp Pulse Resp B/P Pulse Ox O2 Delivery O2 Flow Rate FiO2 12/03/16 14:20 36.5 83 12 150/90 98 Room Air 12/03/16 14:15 85 14 155/85 100 Simple Mask 8 100 12/03/16 14:10 84 12 137/81 100 Simple Mask 8 100 12/03/16 14:05 86 12 144/80 100 Simple Mask 8 100 12/03/16 14:00 89 14 146/83 100 Simple Mask 8 100 12/03/16 13:55 36.4 90 14 149/86 100 Simple Mask 8 100 Anesthetic Administered: GA Level of Alertness: Awake, talking CERON's with Equal Strength: Yes Pain: No Nausea or Vomiting: No CV Function & Hydration Stable: Yes Airway Device: Oxygen Delivery: Simple Mask Lungs: Clear to Auscultation Dermatome Level: Full Sensation PACU Phase 2 Assessment Complications: No Follow up Care: N/A Patient Instructions Provided: N/A Shady Silverman MD Dec 03, 2016 14:50
[2016-12-03 15:19] LABS: APPEARANCE,URINE HAZY (CLEAR,HAZY); COLOR,URINE YELLOW (YELLOW); PH,URINE 8.5 (5.0-8.0)
[2016-12-03 15:21] LABS: OCCULT BLOOD,URINE NEGATIVE (NEGATIVE); UROBILINOGEN,URINE NORMAL (NORMAL)
--- NOTE | 2016-12-03 16:24 | DRSVH ---
PROCEDURE: X-RAY PICC LINE PLACEMENT BY NURSE ([id number]) INDICATIONS: TPN COMPARISON: None. FINDINGS: PICC was placed by the intravenous therapy team from the right side. Fluoroscopic spot fi lm demonstrates tip of PICC in the distal SVC. IMPRESSION: Tip of PICC lies within the distal SVC. Dictated by: Rajan Bella M.D. on 12/03/2016 at 16:17 Approved by: Rajan Bella M.D. on 12/03/2016 at 16:21
--- NOTE | 2016-12-03 16:52 | NUR ---
NUTRITION FOLLOW-UP: ASSESS: 66 YO female admitted with nausea, vomiting and recurrent mild abdominal pain. Due to pt severe nausea, pt has been 4 days without much nutrition prior to admit. Pt s/p diagnostic laparoscopy today with lysis of adhesions and biopsies for gastric outlet and colonic obstruction likely due to metastatic breast cancer. NG tube in place hooked to suction. TPN to be initiated this evening s/p PICC Placement, pharmacy aware of macro recommendations. PMHx: HTN, migraines, metastatic ER+, HER-2 negative breast cancer diagnosed in 2014. DIET: NPO. Limited PO intake now x 11 days if counting intake prior to admit. LABS: Reviewed. MEDICATIONS: Reviewed. GI symptoms / stool: NG tube hooked to suction. ANTHROPOMETRICS: Current Wt: 74.8 kg. Admit weight: 72.27 IBW: 63.6 kg (113.6% IBW) ESTIMATED NEEDS (CANCER): Calories: 3612-1586 kcal (25 - 30 kcal / kg BW) Protein: 70-110 g protein (1.0 - 1.5 g / kg W) Fluid: Approx. 3848-6878 mL (25-30 mL / kg BW) NUTRITION DIAGNOSIS: 1.) Inadequate oral intake related to altered GI function as evidenced by limited po intake x 11 days (counting 4 days prior to admit)--PERSISTS. INTERVENTION: 1) TPN to be initiated today. Recommend TPN of 150 g dextrose, 50 g Amino acids and 25 g lipids to provide 960 kcals and 50 g protein. Once TPN tolerance has been established, recommend slowly increasing TPN to goal TPN of 300 g dextrose, 100 g amino acids and 50 g lipids to provide 1920 kcals and 100 g protein per day. 2.) Continue to advance diet as able / appropriate per surgery recommendations. MONITOR/EVALUATE: TPN tolerance, Diet advance / tolerance, labs, GI/nutrition status. Follow per high nutrition risk guidelines.
--- NOTE | 2016-12-03 19:50 | CCS NOTE ---
[facility] [address], [address] [address] MEDICAL ONCOLOGY OFFICE NOTE PATIENT: ASHU OLMEDO : 1950 MR#: [id number] DATE: 11/26/2016 JOB ID: [id number] DATE: 12/03/2016 The patient was seen earlier this morning today, and she continues to have difficulty with advancing diet and has had abdominal distention and vomiting shortly after having liquids as well. Her colonoscopy biopsies from the area of stricture in the splenic flexure have come back negative as well. She remains afebrile. Abdomen nondistended. Extremities show no edema. Lab studies are stable. ASSESSMENT AND PLAN: A 66-year-old lady with a gastrointestinal wall involvement of the small bowel by lobular carcinoma of the breast at presentation in March 2015, now with recurrent symptoms of upper GI obstruction, although CT scan has been inconclusive in that regard. Endoscopic ultrasound on Saturday evening showed confirmation of the area of stenosis in the distal duodenum, but further evaluation such as biopsy was technically not feasible. I have had communication with Dr. Gusman of surgery, and at this point, we all agreed that the next step would be diagnostic laparoscopy to evaluate the most critical site of stenosis. She might have colonic involvement as well, but her symptoms seem to be more related to upper GI tract and therefore either bypass or stenting might be necessary.
--- NOTE | 2016-12-03 20:09 | NUR ---
Sodium phosphate Talked with Pharmacist concerning IV sodium phosphate dose to go over 6 hrs. Pt has DL PICC line, however TPN scheduled to be hung at 2100 and is not compatible. Pt does have PIV yet according to Pharmacist ([place]) the concentration is too high to be able to infuse through PIV. Per pharmacist, Medication to be on hold until tomorrow.
[2016-12-03] MEDS: Total Parenteral Nutrition 1 BAG IV SCH (21:14)
[2016-12-03] MEDS: TPN Per Pharmacist XX SCH (21:14)
--- NOTE | 2016-12-03 21:53 | OP ---
[address] [address] OPERATIVE REPORT PATIENT: ASHU OLMEDO : 1950 MR#: [id number] ADMIT: 11/26/2016 JOB ID: [id number] DATE OF SURGERY: 12/03/2016 PREOPERATIVE DIAGNOSIS(ES): Gastric outlet obstruction and colonic obstruction possibly from recurrent metastatic breast cancer. POSTOPERATIVE DIAGNOSIS(ES): Metastatic carcinoma with gastric outlet and colonic involvement. PROCEDURE PERFORMED: Diagnostic laparoscopy with lysis of adhesions and biopsies. SURGEON: Malini Gusman MD. ASSISTANTS: Rajan Mcallister PA-C. INDICATIONS: The patient is a 66-year-old lady who was diagnosed in 2014 with metastatic breast cancer infiltrating the small bowel requiring bowel resections x4. In fact, that was her event which led to the diagnosis. At that time, she eventually was found to have lymph node positive lobular breast cancer with skeletal metastases and went on to get induction chemotherapy with Taxotere and Cytoxan, followed by hormonal therapy. She did relatively well until September of this year when she developed some episodes of cramping which spontaneously resolved. Then, most recently, she was admitted with nausea and vomiting on November 26, 2016, and findings were consistent with a stricture in between the first and second portions of the duodenum along with stricture in the splenic flexure on colonoscopy with CT evidence of thickening in the proximal colon. After the attempted endoscopic diagnosis for tissue had failed I recommended diagnostic laparoscopy to obtain diagnosis and if I needed to perform a laparotomy to obtain diagnosis I also recommended considering a bowel resection and/or palliative surgical bypass. After discussing the risks, benefits and alternatives, she was brought to the operating room today for that. PROCEDURE DETAILS: She was placed in supine position, underwent smooth induction of general anesthesia. Abdomen was prepped and draped in the usual sterile fashion. Surgical time-out was undertaken using safety checklist and all were in agreement. I began by making a periumbilical incision and entered the abdomen using open Steven technique and Optiview trocar safely. I placed three 5 mm ports in addition to the initial one at the umbilicus to examine the peritoneal cavity thoroughly. I did not notice any evidence of diffuse carcinomatosis. The transverse colon appeared very abnormal, especially close to the duodenum it appeared to be draping over the duodenum adherent to the retroperitoneum causing almost an extrinsic obstruction. I was able to biopsy some hard tissue around this and send it for frozen section, which was found to be consistent with metastatic carcinoma. I did mobilize some adhesions in the left upper quadrant and took some tissue also near the splenic flexure. After that, I took down any adhesions developing between the transverse colon and the gallbladder, which was also draping over the gastric outlet, which I suspected was contributing to the obstructive process and also was concerning for more malignant tissue. At this point, I felt we had adequate tissue sampling to document the diagnosis and given the multiple sources of obstruction, especially in the colon and the duodenum, I felt at this point she is better served by a duodenal stent with chemotherapy with reserving surgical bypass to a later time if indicated. We desufflated the abdomen, closed the umbilical port with 0-Vicryl suture. Skin was reapproximated with 4-0 Monocryl. Steri-Strips and sterile dressing were applied. Patient was recovered from anesthesia and was taken to the recovery room in stable condition.
--- NOTE | 2016-12-03 22:34 | PROG NOTE ---
[address] [address] PROGRESS NOTE PATIENT: ASHU OLMEDO : 1950 MR#: [id number] ADMIT: 11/26/2016 JOB ID: [id number] DATE: 12/03/2016 SUBJECTIVE: Biopsy from the colon was benign. The patient went for a diagnostic laparoscopy today and there was extensive GI involvement. I spoke with Dr. Gusman and he has advocated for the placement of a duodenal stent. Notably, the patient did have emesis of the contents she attempted to eat yesterday. OBJECTIVE: I saw the patient when she was just being wheeled back from the operating room. Clinically, she appeared quite stable, was alert and oriented, appropriate and conversational. Her was at the bedside. They were both in agreement with going ahead with the stent procedure. ASSESSMENT AND PLAN: This is a 66-year-old female with metastatic breast cancer and extensive GI involvement with ongoing obstructive symptoms that appear to be the most likely related to the considerable stenosis between D1 and D2. I have the patient set for tomorrow afternoon for medial stent placement. We will request anesthesia support for her case. This will be done under fluoroscopy.
[2016-12-04] VITALS (11 sets, daily range): BP systolic 155–184; BP diastolic 94–118; PULSE 76–105; RESP 12–20; O2SAT 93–100
[2016-12-04] MEDS ORDERED: Labetalol 5 mg/mL 20 mL Inj IV ONE (00:30)
[2016-12-04] MEDS: Heparin 5,000 Unit/mL Inj SUBQ SCH ×3 (01:25→17:22)
[2016-12-04 04:32] LABS: Mean Corpuscular Hemoglobin 33.8 pg (27.0-35.0); Mean Corpuscular Volume 100.4 fL (81-100)
[2016-12-04 05:01] LABS: Magnesium 1.7 mg/dL (1.6-2.6); Phosphorus 3.3 mg/dL (2.5-4.9)
--- NOTE | 2016-12-04 05:27 | NUR ---
Activity Pt started on TPN last night, infusing at 42ml/hr through PICC line. Pt able to have sips of clears until 0600 this morning and then pt will be NPO for procedure later today. NG tube to low continuous suction with brown drainage. Pt denies nausea. At beginning of shift,pt reported neck pain that was managed with applying ice. Four lap sites to abdomen are CDI. Pt wearing the SCDs overnight and uses call light for help to get up due to lines/NG.
[2016-12-04] MEDS: TPN Per Pharmacist XX SCH (08:25)
[2016-12-04] MEDS: Pantoprazole 20 mg ER24 Tablet PO SCH (08:26)
[2016-12-04] MEDS ORDERED: Propofol 10,000 mCg/mL 20 mL Inj ONE (10:48)
--- NOTE | 2016-12-04 11:13 | PCM.PHAPRO ---
Progress Date of Service: Dec 04, 2016 TPN PARENTERAL NUTRITION ORDERS 2 - Standard Hang Time: 2100 Substrates Total kcal: 960 AMINO ACIDS 50 g DEXTROSE 150 g Total Volume (mL): 1000 LIPIDS 25 g Sterile Water for Injection mL To Infuse Over (hrs): 24 Total Volume 1000 mL At at a rate of (mL/hr): 42 Additives Sodium Chloride 60 mEq "typical" daily requirements Sodium Acetate mEq Sodium 50-120mEq Potassium Chloride 30 mEq Potassium 60-120mEq Potassium Phosphate 20 mEq Phosphate 20-40mEq Calcium Gluconate 4.65 mEq Magnesium 8-32mEq Magnesium Sulfate 8 mEq Calcium 9-22mEq Acetate* 80-120mEq Chloride* 80-120mEq Regular Insulin units *Depending on acid-base status Famotidine mg Multivitamins 1 std dose Insulin Regimen Trace Elements 1 std dose none Thiamine mg Regular Low Intensity Subcut Folic Acid mg Regular Medium Intensity Subcut Ascorbic Acid mg Regular High Intensity Subcut Regular Insulin Infusion Other: Special Instructions: To be infused via central line only. For delay or inturruption of TPN contact the pharmacist for alternative replacement solution. Indira Luque PharmD Dec 04, 2016 11:13
[2016-12-04] MEDS ORDERED: POTASSIUM CHLORIDE 20 MEQ/100 ML IV ONE (11:15)
[2016-12-04] MEDS ORDERED: DEXTROSE IV ONE (11:15)
[2016-12-04] MEDS ORDERED: 0.9% Sodium Chloride 100 ML ONE (12:14)
--- NOTE | 2016-12-04 13:15 | NUR ---
Off Unit Patient off unit to endo. Report given to CHETAN Carranza.
[2016-12-04] MEDS ORDERED: Phenylephrine 10,000 mCg/mL Inj IVPUSH PRN (13:55)
[2016-12-04] MEDS ORDERED: Dexamethasone 4 mg/mL Inj IVPUSH PRN (13:55)
[2016-12-04] MEDS: Lactated Ringer's 1,000 ML IV SCH ×2 (13:55→14:51)
[2016-12-04] MEDS ORDERED: Lactated Ringer's 500 ML IV PRN (13:55)
[2016-12-04] MEDS ORDERED: EPHEDrine Sulfate 50 mg/mL Inj IVPUSH PRN (13:55)
--- NOTE | 2016-12-04 13:55 | PCM.HPANE ---
Patient Data Surgeon Admitting Provider:Fab Solorio MD Attending Provider:Jodie Woods DO Primary Care Physician:Karen Lopez PA-C Other Provider:Jesse Leyva Anesthesia Reason for Visit Typhlitis, Gastric Outlet Obstruction TYPHLITIS Ht/WT & BMI Height (Feet): 5 Height (Inches): 8.00 Weight (Kilograms): 74.800 Body Mass Index 24.00 Allergies Coded Allergies: meperidine (Verified Allergy, Severe, Nausea,Vomiting, 11/26/16) Past Anesthesia History Anesthesia History: Positive for:: Anesthesia Reactions (DEMEROL AFTER SURGERY) , Denies:: Abnormal Airway, Difficult Intubation, Fam Anesthesia Reaction, Fam Malignant Hypertherm, Malignant Hyperthermia Diabetes History Hx Diabetes?: No Current Bedside Blood Glucose: 129 MRSA MRSA: No Medications Home Meds Incl Beta Milagros: No Reported Medications Fulvestrant (Faslodex)250 Mg/Syr SyringeUnknown Dose IM every 28 days 11/26/16 Letrozole 2.5 Mg Tablet2.5 Mg PO DAILY Ref 0 11/07/16 Palbociclib (Ibrance)125 Mg [id number] Mg PO [id number],off 7 08/13/16 Lisinopril 10 Mg [id number] Mg PO DAILY #30 TABLET Ref 6 03/21/16 Calcium Carbonate (Calcium)600 Mg [id number] Mg PO DAILY 06/29/15 Multivitamin (Multivitamins)1 Each Capsule1 Each PO DAILY 06/10/15 History History of ENT Problems?: Yes HEENT History: Positive for:: Sinus Problem (SEASONAL ALLERGIES.) Denies:: Abnormal Airway Cataracts Difficult Intubation Dysphagia Hearing Problem Denture Type: None Teeth Condition: Within Normal Limits Hx of Heart Problems?: Yes Cardiovascular History: Positive for:: Hypertension Denies:: AICD Atrial Fibrillation Cardiac Surgery Chest Pain Congestive Heart Failure Edema Heart Murmur Irregular Heartbeat Pacemaker Thrombophlebitis Valvular Heart Disease Hx of Respiratory Problem?: No Respiratory History: Denies:: Asthma COPD Chest Surgery Cough Dyspnea Emphysema Hemoptysis Pneumonia Tuberculosis Hx Neurologic Problems?: Yes Neurological History: Positive for:: Headaches (MIGRAINE) Denies:: Alzheimer's Disease CVA Dementia Dizziness Parkinson's Disease Seizures Hx of GI Problems?: Yes Hx of Problems?: No Genitourinary History: Denies:: HX of Hemodialysis Kidney Stones Urinary Tract Infection HX of Peritoneal Dialysis: No Female Hx: Denies:: Currently Endometriosis Pelvic Inflammatory Problems with Breasts? Hx Musculoskeletal Problems?: Yes Musculoskeletal History: Positive for:: Back Injury Denies:: Fibromyalgia Joint Replacement Musculoskeletal Trauma Hx of Psycho/Social Problems?: Yes Psycho Social History: Positive for:: Anxiety Denies:: Bipolar Disorder Hx Depression Suicide Attempt Hx Surgeries?: Yes (TONSILLECTOMY, APPENDENCTOMY, KNEE SURGERY) Hx Any Other Health Problems?: Yes Other History: Positive for:: Cancer (metastatic breast cancer) Hospitalization ([facility], [facility]) Denies:: Thyroid Disease History Blood Transfusions: Positive for:: Accept Blood Products? Denies:: Blood Transfuse Reaction Blood Transfusions Hx Diabetes: NoBedside Blood Glucose: 129 Hx Alcohol Use: NoHx Substance Use: No Smoking Status: Never Smoker Have You Smoked inLast 12 mo: No Stop/Bang Treated for Sleep Apnea?: No Do You Have a CPAP Machine?: No S-Snoring: Do You Snore Loudly: No T-Tired: feel tired, fatigued: No O-Obsered: Observed not breath: No P-Blood Pressure: treated: Yes B- Body Mass Index > 35 kg/m2: No A- Age over 50: Yes N- Neck Large Circumference: No G- Gender Male: No PENNY Total Score: 2 PENNY Risk Assessment: Low Risk, <3 Yes Risk Assessment Category Category 1A: Patient has history of documented sleep apnea, and HAS NOT received any narcotic, sedative or anesthesia administration during this stay. Category 1B: Patient has history of documented sleep apnea, and HAS received any narcotic , sedative or anesthesia administration during this stay Category 2: Patient has SUSPECTED Obstructive Sleep Apnea, and HAS received any narcotic , sedative or anesthesia administration during this stay. Category 3: Patient has SUSPECTED Obstructive Sleep Apnea and HAS NOT received narcotic, sedative or anesthesia administration during this stay. Category 4: Outpatient in Procedural Areas with known sleep apnea or who screen positive for High Risk via the STOP/BANG questionnaire. Low Risk, <3 Yes Exam Exam General Appearance: Alert, Oriented X3, Cooperative, No Acute Distress HEENT/AIRWAY: MP 2, Neck Movement, Mouth Opening Lungs: Clear to Auscultation Heart: Exam Unremarkable Meds/Labs/Diagnostics Admission Meds Current Medications Total Parenteral Nutrition 1 ml @ 0 mls/hr DAILY@21 IV Last administered on 21:14; Start 12/03/16 at 21:00 Potassium Chloride/Sodium Chloride/Premix (Potassium Chloride 20 mEq/ 100 mL ( CENTRAL)/ IV Premix) 100 ml @ 50 mls/hr ONCE ONCE IV Last administered on 12:22; Start 12/04/16 at 11:15; Stop 12/04/16 at 13:14; Status DC Bedside Blood Glucose: 129 Labs Test 11/26/16 11:05 11/26/16 11:37 11/26/16 12:04 11/28/16 08:45 Hold Urine Received (Received) Lipase 193U/L (13-60) Procalcitonin 0.05ng/mL (0.00-0.08) Lactic Acid Level 1.3mmol/L (0.4-2.0) Hold Ospina Top Tube Received (Received) CA 27.29 123.7U/mL (0.0-38.6) Test 11/30/16 06:11 12/02/16 05:43 12/03/16 09:10 12/03/16 15:09 Prothrombin Time 11.2sec (8.1-12.5) Prothromb Time International Ratio 1.05ratio Neutrophils (%) (Auto) 48.2% (40-74) Lymphocytes (%) (Auto) 36.8% (14-46) Monocytes (%) (Auto) 10.3% (4-12) Eosinophils (%) (Auto) 4.3% (0-5) Basophils (%) (Auto) 0.4% (0-3) Triglycerides Level 158mg/dL (0-149) Urine Color Yellow (YELLOW) Urine Appearance Hazy (CLEAR,HAZY) Urine pH 8.5 (5.0-8.0) Urine Specific [place] 1.020 (1.003-1.035) Urine Protein 100mg/dL (NEG,TRACE) Urine Glucose (UA) Negativemg/dL (NEGATIVE) Urine Ketones 80mg/dL (NEGATIVE) Urine Occult Blood Negative (NEGATIVE) Urine Nitrite Negative (NEGATIVE) Urine Bilirubin Negative (NEGATIVE) Urine Urobilinogen Normalmg/dL (NORMAL) Urine Leukocyte Esterase Negative (NEGATIVE) Urine RBC 0-2/hpf (0-2) Urine WBC 0-5/hpf (0-5) Urine Epithelial Cells Occasional/hpf (NONE-MOD) Urine Crystals Oxalic acid crystals (NONE Urine Bacteria None/hpf (NONE-FEW) Urine Hyaline Casts None/lpf (NONE) Urine Granular Casts None seen (NONE SEEN) Urine Waxy Casts None seen (NONE SEEN) Urine Red Blood Cell Casts None seen (NONE SEEN) Urine White Blood Cell Casts None seen (NONE SEEN) Urine Mucus Present (None Seen) Urine Trichomonas None seen (NONE SEEN) Urine Yeast None (NONE SEEN) Urinalysis Comment None Urine Culture Reflexed Not indicated Test 12/04/16 04:10 White Blood Count 7.6th/mm3 (3.8-10.1) Red Blood Count 2.66mil/mm3 (3.90-5.20) Hemoglobin 9.0g/dL (12.0-15.6) Hematocrit 26.7% (35.0-46.0) Mean Corpuscular Volume 100.4fL (81-100) Mean Corpuscular Hemoglobin 33.8pg (27.0-35.0) Mean Corpuscular Hemoglobin Concent 33.7% (32.0-37.0) Red Cell Distribution Width 13.9% (12.3-15.4) Platelet Count 180bil/L (150-400) Sodium Level 140mEq/L (134-144) Potassium Level 3.5mEq/L (3.5-5.2) Chloride Level 102mEq/L (97-108) Carbon Dioxide Level 24mmol/L (18-29) Blood Urea Nitrogen 17mg/dL (8-27) Creatinine 0.61mg/dL (0.57-1.00) Estimat Glomerular Filtration Rate 140mL/min (>59) Glucose Level 129mg/dL (60-99) Calcium Level 9.0mg/dL (8.5-10.1) Phosphorus Level 3.3mg/dL (2.5-4.9) Magnesium Level 1.7mg/dL (1.6-2.6) Total Bilirubin 0.3mg/dL (0.0-1.2) Aspartate Amino Transf (AST/SGOT) 24U/L (0-50) Alanine Aminotransferase (ALT/SGPT) 21U/L (0-32) Alkaline Phosphatase 58U/L (25-165) Total Protein 6.0g/dL (6.4-8.4) Albumin 3.7g/dL (3.4-5.0) Plan Impression Patient chart reviewed, patient interviewed and anesthestic plan with risks, benefits, and alternatives discussed, and informed consent obtained. NPO per Anesth. Guidelines: Yes ASA Physical Status: ASA2 Mod Systemic Disease Anesthetic Plan: GA Bene/Risks/Altern/Consents: Yes HP Complete Prior to Induction: Yes Waylon Santiago MD Dec 04, 2016 13:55
[2016-12-04] MEDS: fentaNYL-PF 50 mCg/mL 2 mL Inj IVPUSH PRN ×2 (15:15→15:34)
[2016-12-04] MEDS: Ondansetron 2 mg/mL 2 mL Inj IVPUSH PRN ×3 (15:15→21:26)
--- NOTE | 2016-12-04 15:51 | ENDO ---
[address] [address] ENDOSCOPY PROCEDURE PATIENT: ASHU OLMEDO : 1950 MR#: [id number] ADMIT: 11/26/2016 JOB ID: [id number] PROCEDURE: Esophagogastroduodenoscopy with stent deployment under fluoroscopy. 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 EQUIPMENT: Two-channel therapeutic upper endoscope. SEDATION: Monitored anesthesia as provided by Dr. Waylon Santiago. COMPLICATIONS: None identified. PROCEDURE INFORMATION: After the risks and benefits were explained, written and verbal informed consent was obtained, the patient was brought into the endoscopy suite and placed into the left lateral decubitus position. Sedation was achieved using the above-stated medications with the addition of oxygen via nasal cannula. The scope was introduced into the mouth through the bite block and advanced to the stomach. Prior to the introduction of the scope, the NG tube was removed. We noticed there was a moderate amount of heme in the esophagus, consistent with NG tube- related trauma. No sustained bleeding. The scope was advanced into the stomach. With some difficulty, we were able to navigate this endoscope on past the stenosed region in the postbulbar duodenum. We then advanced a 450 cm straight Dreamwire well downstream. I then repositioned the scope from the vantage point of the pylorus. We passed the 9 cm [employer] uncovered duodenal WallFlex stent over the wire. However, when attempting to pass it through the C-loop, it seemed like this was putting an unacceptable amount of stress on the wall of the bowel. I therefore removed the stent back into the channel of the scope and we once again advanced the scope across the stenosed region and then advanced the stent into position downstream. We pulled the scope back into a position from the vantage point of prepylorus region and successfully deployed the stent over the wire using fluoroscopy to ensure appropriate placement. After the stent was deployed, we could identify obvious significant constriction of the stent through the main body. It appeared to be appropriately positioned across the stenosed region and the proximal margin of the stent deployed within the duodenal bulb. Photographs were taken. The scope was brought back more proximally. Excess air and fluid was removed. The scope was then withdrawn from the patient who seemed to tolerate the procedure well. FINDINGS: 1. Esophagus NG tube trauma was evident. No sustained bleeding. 2. Stomach: A moderate amount of brown liquid was identified and easily suctioned up with the endoscope. 3. Duodenum: High-grade irregular stenosis again identified. We were able to place a 9 cm uncovered duodenal WallFlex stent across the obstructed segment. Positioning appeared appropriate fluoroscopically and endoscopically. ENDOSCOPIC DIAGNOSES: Successful duodenal stent deployment. RECOMMENDATIONS: 1. We can expect the stent to expand over the next 24 hours. 2. Liquid diet advancing to smoothie and in essence extremely well-chewed food as tolerated moving forward. 3. The patient is to resume chemotherapy as per the orders of Dr. Carlin at his discretion. From a GI standpoint this could start really in essence at any time. I understand that he will be signing out the orders to Dr. Sanders if there are any questions or concerns on that score.
--- NOTE | 2016-12-04 16:07 | NUR ---
Back from Endo Patient back to room from duodenal stent placement. Transferred to bed from [facility] with slider board due to pain. 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 Patient on room air, reports abdominal pain at 10/10, and BP 184/113. paged-awaiting orders. Addendum: 12/04/16 at 1852 by JAVI SCHMIDT RN Labetalol IVP administered-no change in MAP from BP. Patient continues to actively vomit and reports nausea after 8mg IVP of zofran. IV phenergan infusing. Dr. Holm given update on patient condition and states he will check in again this evening and if things don't improve he might order a repeat CT. Alta also stated to contact the hospitalist about any SEMI TRUCK DRIVER changes or pain medication needs.
[2016-12-04] MEDS ORDERED: HYDROmorphone 1 mg/mL Inj IVPUSH PRN (16:50)
[2016-12-04] MEDS: Morphine PCA 1 mg/mL 30 mL Inj IV PRN (17:00)
--- NOTE | 2016-12-04 21:17 | CCS NOTE ---
[facility] [address], [address] [address] MEDICAL ONCOLOGY OFFICE NOTE PATIENT: ASHU OLMEDO : 1950 MR#: [id number] DATE: 11/26/2016 JOB ID: [id number] DATE: 12/04/2016 The patient has had endoscopic procedure and I saw her a couple of hours thereafter in her room with her . She was still somewhat lethargic from the sedation but had also increasing pain and nausea. She remains afebrile. Her white cells are stable. Leukopenia from previous Ibrance has been corrected with a single dose of Granix injection and her white count is normal. She has now a PICC line. ASSESSMENT AND PLAN: A 66-year-old, unfortunate lady with invasive lobular carcinoma, stage IV, with oligometastatic disease to the skeletal system and documented evidence of involvement of the gastrointestinal tract as her presenting symptom in March 2016, with bowel obstruction that was resolved with resection of the affected loops that led to the diagnosis. She was treated with Taxotere, Cytoxan x4 cycles with excellent disease response and control followed by maintenance hormonal therapy that had to be escalated recently using combination of letrozole plus Faslodex and Ibrance as summarized in my previous note. Unfortunately, she seems to have a flare-up of GI dysfunction with symptoms resembling upper GI/gastric outlet obstruction. She had now a diagnostic laparoscopy by Dr. Gusman which showed and confirmed duodenal obstruction, partial obstruction, as well as other areas involving the colon wall. Biopsies were taken. No resection or bypass was performed per Dr. Gusman's judgment due to multifocality. The patient was then scheduled to have a duodenal stent placed and Dr. Holm and I reviewed that over the phone and this was successfully performed this afternoon. The patient has quite a bit of discomfort currently, likely due to the expanding effect of the stent in across the stenosis. My suggestion would be that after a day or two of recovery from these procedures and hopefully some improvement of her oral intake, to proceed with systemic chemotherapy. I think the beneficial effect of the stent will be short-lived and the main goal would be to get her on systemic chemotherapy as soon as possible, even if her dietary situation is suboptimal. We discussed the usage of Doxil. We will administer it with slight dose reduction due to her currently reduced functional status. A total dose of 80 mg was calculated and this would project to approximately 43 mg/m2. Dr. Sanders is briefed about her situation and will reassess her, and it is felt that the patient can proceed. Hopefully, the chemo can start in the next couple of days while she is in hospital. Echocardiogram was ordered to evaluate baseline ejection fraction. Side effects of Doxil, including diarrhea, hand-foot syndrome and sometimes stomatitis and myelosuppressive toxicity was discussed with the family. She might benefit from additional G-CSF after Doxil administration to avoid delayed neutropenia. I will be returning in office on December 17.
[2016-12-04] MEDS: Total Parenteral Nutrition 1 BAG IV SCH (21:28)
--- NOTE | 2016-12-04 21:50 | PCM.PNSURG ---
Subjective Date of Service: Dec 04, 2016 Visit Information: Gatric and colonic obstruction likely from metastatic breast cancer s/p Diagnostic laparoscopy with biopsies & lysis of adhesion on 12/03/2016 Date of Admission: Nov 26, 2016 at 16:48 Hospital Day # 9 Objective Vital Sign- Last 8 Hours Date Time Temp Pulse Resp B/P Pulse Ox O2 Delivery O2 Flow Rate FiO2 12/04/16 18:20 76 18 164/97 97 Room Air 12/04/16 17:40 155/96 12/04/16 17:10 20 12/04/16 16:10 36.3 79 19 184/113 97 Room Air 12/04/16 15:35 82 16 168/102 93 Room Air 12/04/16 15:18 94 12 181/113 100 Room Air 12/04/16 15:03 105 14 177/112 98 Room Air Intake and Output- Last 8 Hour 12/04/16 Cumulative From/Thru 07:00 11/26/16 10:44 - 12/04/16 06:30 Intake Total 392 ml 94143 ml Output Total 500 ml 6895 ml Balance -108 ml 9306 ml Intake Oral 100 ml 7552 ml IV Total 8357 ml TPN/PPN 292 ml 292 ml Output Urine Total 250 ml 4060 ml Stool Total 410 ml Gastric Drainage Total 250 ml 250 ml Emesis 2175 ml Estimated Blood Loss 0 ml # Voids 44 # Bowel Movements 9 Abdomen: Soft, Other (dressings dry) Result Diagram: 12/04/16 0410 12/04/16 0410 Assessment & Plan Impression Doing okay Problems: Plan Hopefully she will do well enough with PO intake after the stent to tolerate chemotherapy Please call if any questions. Malini Gusman MD Dec 04, 2016 21:50
--- NOTE | 2016-12-04 22:12 | PCM.PNMED ---
Subjective Date of Service Dec 04, 2016 Subjective Patient is seen and examined. She is very drowsy from her duodenal stent procedure done by Dr. Holm. Pain is not well controlled. Possible hypertensive on arrival to floor, Exam Vital Signs Vital Sign - Last Date Time Temp Pulse Resp B/P Pulse Ox O2 Delivery O2 Flow Rate FiO2 12/03/16 21:35 37.1 83 18 158/97 98 Room Air 12/03/16 14:15 8 100 Intake and Output 12/03/16 12/03/16 12/04/16 Cumulative From/Thru 15:00 23:00 07:00 11/26/16 10:44 - 12/04/16 04:44 Intake Total 700 ml 300 ml 292 ml 66373 ml Output Total 10 ml 100 ml 6395 ml Balance 690 ml 200 ml 292 ml 9706 ml Intake Oral 0 ml 7452 ml IV Total 700 ml 300 ml 8357 ml TPN/PPN 292 ml 292 ml Output Urine Total 10 ml 3810 ml Stool Total 410 ml Emesis 100 ml 2175 ml Estimated Blood Loss 0 ml 0 ml # Voids 2 44 # Bowel Movements 9 Exam General: moderate distress, well-developed, well-nourished Cardiovascular: Regular rate and rhythm with no murmurs, rubs, or gallops appreciated Pulmonary: Clear to auscultation bilaterally with no crackles, wheezes, or rhonchi. Normal respiratory effort with no use of accessory muscles. Abdomen: Lower abdomen abdomen looks larger than the upper, patient is having significant pain does did not try deep palpation Extremities: No clubbing, cyanosis, or lymphadenopathy appreciated. Mild lower extremity edema up the ankles. Skin: Normal temperature, turgor, and texture; no rash, ulcers, or subcutaneous nodules appreciated. Neuro: Patient is very drowsy IVs and Medications IV Fluids TPN Medications Reviewed: Medications were reviewed in detail Lab and Diagnostics Result Diagram: 12/04/1640912/04/16409 X-Rays, CTs and MRIs CT ABDOMEN AND PELVIS WITH CONTRAST IMPRESSION: Severe ascending and transverse colonic wall thickening in keeping with an infectious or inflammatory (statistically less likely ischemic) colitis. Of note the appendix is not discretely identified therefore cannot entirely exclude acute appendicitis although probably less likely given the long segment involvement. Nonetheless, recommend clinical and laboratory correlation. Nonobstructive right renal calculus. L3 osseous metastasis as before, with unchanged appearance Dictated by: Benny Telles M.D. 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 Upper GI partial obstruction. active - Patient had endoscopy with biopsy negative for malignancy , a stenosed, somewhat constricted region between D1 and D2. - Had colonoscopy , multiple strictures (splenic flexure in the colon) - Had endsocopical US , unsuccessful due to stricture, next step - diagnostic laproscopy was done on 12/[address] kam adhesion lysis, biopsies - Surgery , GI and Onc on board -- Patient underwent a duodenal status stent placement on 12/04 -- Patient is given morphine pump for pain control -- GI Notes: "Duodenum: High-grade irregular stenosis again identified. We were able to place a 9 cm uncovered duodenal WallFlex stent across the obstructed segment. 1. We can expect the stent to expand over the next 24 hours. 2. Liquid diet advancing to smoothie and in essence extremely well-chewed food as tolerated moving forward. 3. The patient is to resume chemotherapy as per the orders of Dr. Carlin at his discretion. From a GI standpoint this could start really in essence at any time. I understand that he will be signing out the orders to Dr. Sanders if there are any questions or concerns on that score." -- Discussed case with Dr. Carlin: " My suggestion would be that after a day or two of recovery from these procedures and hopefully some improvement of her oral intake, to proceed with systemic chemotherapy. I think the beneficial effect of the stent will be short-lived and the main goal would be to get her on systemic chemotherapy as soon as possible, even if her dietary situation is suboptimal. We discussed the usage of Doxil. We will administer it with slight dose reduction due to her currently reduced functional status. A total dose of 80 mg was calculated and this would project to approximately 43 mg/m2. Dr. Sanders is briefed about her situation and will reassess her, and it is felt that the patient can proceed. Hopefully, the chemo can start in the next couple of days while she is in hospital. Echocardiogram was ordered to evaluate baseline ejection fraction. I will be returning in office on December 17." Transverse and ascending colon colitis concerning for typhlitis, present remission, resolved - Colonoscopy done, no signs of active inflammation -symptoms resolved -Stool PCR -ve for any pathogens Metastatic ER positive, HER-2 negative breast cancer, present on admission, active -Tumor marker 123, not a huge change from previous one (119) - plan is to do endoscopic US today, take biopsies, waiting for pathology , if tumor stent to be placed, otherwise laproscopy next week - per Dr. Carlin : "She has not seen any chemotherapy of hormonal agents and therefore has a number of options of chemotherapeutic intervention including re-treatment with Taxotere and Cytoxan or single agent Doxil or a combination of AC. I am hopeful that if the current symptoms can be controlled and bypassed, that the patient can resume chemotherapy and respond agai" - Dr. Kam, Dr. Carlin, Dr. Holm on board -- Discussed case with Dr. Carlin, his recs as above Leukopenia secondary to cytotoxic agent, present on admission, active - WBCs 2.3 today, stable -Continue to monitor Hypertension, present on admission, active -consistently high, dose of lisinopril increased to 20mg daily - will monitor -- Patient needed 1 dose of labetalol upon arrival to floor from the stent procedure -- Enalapril 1.25 mg IV Q6HPRN with parameters Nutrition -Patient is status post exploratory lap biopsies are done by Dr. Kam -- Patient is status post duodenal stent by Dr. Holm - She is receiving tpn via PICC line CODE STATUS: DNR/DNI Dispo: pending clinical improvement . Pain Evaluation: Pain not Controlled VTE Prophylaxis: SCDs VTE Mechanical Devices: Intermittant Pneumatic CD Resuscitation Status: DNR/DNI:Do Not Resuscitate/Intubate Time spent 25 min Jodie Woods DO Dec 04, 2016 05:22
[2016-12-04] MEDS: Promethazine Inj 25 MG in Dextrose 5%-Pha MIX 50 ML IV PRN (23:28)
[2016-12-04] MEDS ORDERED: Labetalol 5 mg/mL 4 mL Inj IVPUSH ONE (23:55)
[2016-12-05] VITALS (12 sets, daily range): BP systolic 149–190; BP diastolic 96–113; PULSE 88–111; RESP 16–18; O2SAT 96–99
--- NOTE | 2016-12-05 01:01 | NUR ---
BP/nausea/pain Pt able to sleep first 2 hours of shift. RR 18 and O2 sats 97% with CPox on RA. Pt awoke with persistent nausea and Zofran given with some relief, pt able to fall back asleep but awoke again with more nausea. IV Phenergan given and this seemed to work better. Pt BP up to 175/118, pt did report pain 8/10 to abdomen and was encouraged to press HRIS MANAGER button. BP rechecked after pain meds and still high at 164/106. paged and ordered one time dose of Labetalol 20 mg IVP. Upon reassesment, BP slightly down at 158/98. Pt now sleeping, continue close monitoring. Addendum: 12/05/16 at 0635 by MARCELLUS GOINS RN BP elevated this morning at 190/110. Pt reporting pain better controlled, still having pain 5/10 but relief with morphine HRIS MANAGER. BP rechecked manually at 176/106. paged and ordered one time dose of Labetalol 20 mg IVP. On reassessment, BP down to 156/96. Continue close monitoring.
[2016-12-05] MEDS: Heparin 5,000 Unit/mL Inj SUBQ SCH ×3 (01:24→17:55)
[2016-12-05] MEDS: Ondansetron 2 mg/mL 2 mL Inj IVPUSH PRN (04:33)
[2016-12-05 04:54] LABS: Mean Corpuscular Volume 100.9 fL (81-100)
[2016-12-05 05:16] LABS: Magnesium 1.9 mg/dL (1.6-2.6)
[2016-12-05] MEDS ORDERED: Labetalol 5 mg/mL 20 mL Inj IVPUSH ONE (05:30)
[2016-12-05] MEDS: TPN Per Pharmacist XX SCH (08:38)
[2016-12-05] MEDS: Pantoprazole 20 mg ER24 Tablet PO SCH (08:43)
--- NOTE | 2016-12-05 10:41 | PCM.PHAPRO ---
Progress TPN PARENTERAL NUTRITION ORDERS 3 - Standard Hang Time: 2100 Substrates Total kcal: 1330 AMINO ACIDS 75 g DEXTROSE 200 g Total Volume (mL): 1000 LIPIDS 35 g Sterile Water for Injection mL To Infuse Over (hrs): 24 Total Volume 1000 mL At at a rate of (mL/hr): 42 Additives Sodium Chloride 60 mEq "typical" daily requirements Sodium Acetate mEq Sodium 50-120mEq Potassium Chloride 30 mEq Potassium 60-120mEq Potassium Phosphate 20 mEq Phosphate 20-40mEq Calcium Gluconate 4.65 mEq Magnesium 8-32mEq Magnesium Sulfate 8 mEq Calcium 9-22mEq Acetate* 80-120mEq Chloride* 80-120mEq Regular Insulin units *Depending on acid-base status Famotidine mg Multivitamins 1 std dose Insulin Regimen Trace Elements 1 std dose none Thiamine 100 mg Regular Low Intensity Subcut Folic Acid 1 mg Regular Medium Intensity Subcut Ascorbic Acid mg Regular High Intensity Subcut Regular Insulin Infusion Other: Special Instructions: To be infused via central line only. For delay or inturruption of TPN contact the pharmacist for alternative replacement solution. Signature Date: ARIANA OLMEDO [address] [facility] Advanced macros per nutrition reccs. Added Thiamine and folic acid for refeeding risk -Dat Vogt, PharmD Dat Vogt Dec 05, 2016 10:41
--- NOTE | 2016-12-05 15:05 | NUR ---
Social Work- Continued D/C Planning/Multidisciplinary Rounds Data: Pt is on day 9 of hospitalization. Pt discussed in rounds. Pt is not medically ready for discharge at this time. Surgery is involved. SW is following for possible HH RN for dressing changes and potentially home infusion for TPN. SW will continue to follow. Assessment: Pt who is independent at baseline. Plan: Pt is independent at baseline. SW is following for possible HH RN for dressing changes and potentially home infusion for TPN. SW will continue to follow. SOFÍA Gilman
--- NOTE | 2016-12-05 15:09 | DRSVH ---
[facility] [address] [place] [address] Echocardiogram Report Name: ASHU OLMEDO FStudy Date : 12/05/2016 Height: 68 in Hospital Exam Location: [facility] Weight: 157 lb Gender: Female BSA: 1.8 m2 : 1950 Age: 66 yrs BP: 166/108 mmHg Reason For Study: Pre Chemo (ICD Code V67.2) Ordering Physician: Performed By: Missy Williamson Referring Physician: ANGELA Lopez Interpretation Summary [facility] team. The study quality was technically limited. Very limited visibility of the heart. The apical views were not obtained due to lack of acoustic window. The left ventricle is not well visualized. The left ventricular ejection fraction is grossly normal. The right ventricle is not well visualized. All the valves were not well visualized. Procedure: A two-dimensional transthoracic echocardiogram with color flow and Doppler was performed. The study quality was technically limited. Very limited visibility of the heart. The apical views were not obtained due to lack of acoustic window. The patient was in normal sinus rhythm during the exam. Left Ventricle: The left ventricle is not well visualized. Overall left ventricular systolic function is preserved. The left ventricular ejection fraction is grossly normal. Regional wall motion abnormalities cannot be excluded due to limited visualization. Diastolic function could not be accurately assessed due to unobtainable data. Right Ventricle: The right ventricle is not well visualized. Atria: The left atrium is not well visualized. Right atrium not well visualized. Mitral Valve: The mitral valve is not well visualized. Aortic Valve: The aortic valve is not well visualized. Tricuspid Valve: The tricuspid valve is not well visualized. Pulmonic Valve: The pulmonic valve is not well visualized. Great Vessels: The aortic root is not well visualized. The ascending aorta could not be visualized. The IVC has a measurement of 15 mm. Pericardium/ Pleura There is no pericardial effusion. MMode/2D Measurements & Calculations LVIDd IVC diam LV farfan. diameter/BSA LV sys. diameter/BSA : 4.1 cm : 1.5 cm (cm/m^2): 2.2 (cm/m^2): 1.5 LVIDs : 2.8 cm FS: 30.1 % EPSS : 0.5cm IVSd : 0.9cm LVPWd : 1.1 cm Reading Physician:AMBER
--- NOTE | 2016-12-05 15:10 | NUR ---
NUTRITION FOLLOW-UP: ASSESS: 66 YO female admitted with nausea, vomiting and recurrent mild abdominal pain. Due to pt severe nausea, pt has been 4 days without much nutrition prior to admit with additional 9 days during admission. Pt s/p diagnostic laparoscopy with lysis of adhesions and biopsies for gastric outlet and colonic obstruction likely due to metastatic breast cancer. Pt s/p duodenal stent procedure on 12/04. TPN was initiated 12/03 and is slowly being advanced to goal rate as pt is able to tolerate. Diet has been advanced to full liquids, but pt continues to refuse po intake. PMHx: HTN, migraines, metastatic ER+, HER-2 negative breast cancer diagnosed in 2014. DIET: Full liquids, refusing po intake at this time. Limited PO intake now x 13 days if counting intake on 4 days prior to admit. NUTRITION SUPPORT: TPN of 150 g dextrose, 50 g Amino acids and 25 g lipids to provide 960 kcals and 50 g protein LABS: Reviewed. K+ 4.2, Glu 153, Alb 4.0. MEDICATIONS: Reviewed. GI symptoms / stool: BM x 9 (12/02) ANTHROPOMETRICS: Current Wt: 71.1 kg. Admit weight: 72.27 IBW: 63.6 kg (113.6% IBW) ESTIMATED NEEDS (CANCER): Calories: 8697-6128 kcal (25 - 30 kcal / kg BW) Protein: 70-110 g protein (1.0 - 1.5 g / kg W) Fluid: Approx. 1595-4460 mL (25-30 mL / kg BW) NUTRITION DIAGNOSIS: 1.) Inadequate oral intake related to altered GI function as evidenced by limited po intake x 13 days (counting 4 days prior to admit)--PERSISTS. INTERVENTION: 1) Recommend increasing TPN to 200 g dextrose, 75 g Amino acids and 35 g lipids to provide 1330 kcals and 75 g protein. 2.) Recommend slowly increasing TPN to goal TPN of 300 g dextrose, 100 g amino acids and 50 g lipids to provide 1920 kcals and 100 g protein per day as able. 3.) Adjust goal TPN as needed pending po intake by pt now that diet has been advanced. MONITOR/EVALUATE: TPN tolerance, PO intake, diet advancement/tolerance, labs, GI/nutrition status. Follow per high nutrition risk guidelines.
--- NOTE | 2016-12-05 16:48 | PROG NOTE ---
[address] [address] PROGRESS NOTE PATIENT: ASHU OLMEDO : 1950 MR#: [id number] ADMIT: 11/26/2016 JOB ID: [id number] DATE: 12/05/2016 SUBJECTIVE: Immediately following the procedure yesterday, the patient was in considerable pain. She actually had nausea and vomiting, requiring GROUNDS/MAINTENANCE SPECIALIST analgesia. Overnight, she has had considerable improvement. She now reports the pain has subsided. She has yet to pass a bowel movement and is not passing much in the way of flatus just yet, but no further nausea or vomiting. She is tolerating clear liquid diet. OBJECTIVE: Vitals demonstrate elevated blood pressures, pulse in the 80s, 98% on room air. Afebrile. The patient was alert, oriented, appropriate, cooperative, conversational, in no distress this morning. Abdomen was slightly distended but generally soft. Bowel sounds were present. Other than tenderness about her laparoscopic incisions, I did not appreciate any significant guarding. LABORATORY DATA: White count 7.5, hemoglobin 10.8. ASSESSMENT AND RECOMMENDATIONS: A 66-year-old female with metastatic breast cancer and considerable gastrointestinal tract involvement. She is now status post duodenal stenting and appears to be doing reasonably well. I would like her to continue on a full liquid smoothie diet for now. I would defer to Dr. Sanders who is covering for Dr. Carlin as to when to restart her chemotherapy. I will continue to follow while she is hospitalized. [facility]
--- NOTE | 2016-12-05 16:51 | PROG NOTE ---
[address] [address] PROGRESS NOTE PATIENT: ASHU OLMEDO : 1950 MR#: [id number] ADMIT: 11/26/2016 JOB ID: [id number] CONTINUATION OF PROGRESS NOTE: DATE: 12/05/2016 ASSESSMENT AND PLAN: A 66-year-old female with metastatic breast cancer and considerable gastrointestinal tract involvement. She is now status post duodenal stenting and appears to be doing reasonably well. I would like her to continue on a full liquid smoothie diet for now. I would defer to Dr. Sanders who is covering for Dr. Carlin as to when to restart her chemotherapy. I will continue to follow while she is hospitalized.
--- NOTE | 2016-12-05 17:23 | NUR ---
pain pain severe over night per pt but has be getting better throughout the day. Using CERTIFIED PERSONAL TRAINER MS and she says that has been helping alot. She has been staying in bed more today than usual. Denies nausea
[2016-12-05] MEDS ORDERED: Labetalol 5 mg/mL 4 mL Inj IVPUSH ONE (18:25)
--- NOTE | 2016-12-05 18:28 | PROG NOTE ---
[address] [address] PROGRESS NOTE PATIENT: ASHU OLMEDO : 1950 MR#: [id number] ADMIT: 11/26/2016 JOB ID: [id number] DATE: 12/05/2016 MEDICAL ONCOLOGY PROGRESS REPORT: DIAGNOSIS: Recurrent metastatic lobular carcinoma of breast, involving the small and large bowel. HISTORY OF PRESENT ILLNESS: The patient is a very pleasant 66-year-old woman who initially presented in March 2015 with metastatic lobular carcinoma of breast involving small bowel requiring multiple resections. She was found to have a primary right breast mass with axillary fred involvement and skeletal metastases. She was treated with six cycles of TC chemotherapy and was placed on anastrozole in August 2015. She then progressed on anastrozole and was placed on Faslodex/Ibrance in August 2016, and more recently letrozole was added due to further progression. She was admitted to hospital last week with progressive nausea, vomiting, and abdominal discomfort. CT scan showed abnormal severe colon wall thickening. Clinically, she has been having symptoms of gastric outlet obstruction. EGD showed significant luminal obstruction at the 2nd portion of the duodenum. Diagnostic laparoscopy by Dr. Gusman two days ago showed severe involvement of transverse colon with adherence and extrinsic compression effect on the duodenum. There was also involvement of the splenic flexure of the colon by carcinoma. Biopsies were taken but the those results are still pending. Per Dr. Gusman's operative report, frozen section was consistent with carcinoma. The patient underwent placement of a duodenal stent yesterday by Dr. Holm. OBJECTIVE: Today she is quite tired. She has not been out of bed except to use the bedside commode. She has not had anything to eat other than sips of liquids. She complains of abdominal discomfort and on exam abdomen is mildly to moderately distended and somewhat semi firm throughout, with tenderness. Blood pressure 166/108, heart rate 94, temperature afebrile, O2 saturation 98% on room air. She is resting in bed and appears very tired. Abdominal exam as mentioned above. LABORATORY DATA: WBC count 7500, hemoglobin 10.8, and platelet count 220,000. Chemistry profile is normal. Albumin is 4.0. Echocardiogram earlier today shows grossly normal LV ejection fraction, although it was a technically limited study. IMPRESSION AND PLAN: A 66-year-old woman with de soumya metastatic lobular carcinoma of breast involving small and large bowel. She underwent placement of duodenal stent yesterday. I think her clinical condition is stable enough to receive chemotherapy. This chemotherapy is given as a single agent and has minimal GI side effects. I think she will be able to tolerate it well. Other expected side effects include hand foot syndrome and mild myelosuppression. We discussed these today. I will administer Doxil at about 40 mg/m2 dose tomorrow, and the next infusion will be four weeks later. The patient was encouraged to try a small amount of smoothies and if possible take short walks in the hallways. She will continue TPN and pain medication through RN [facility]ENSIVE CARE UNIT pump. I will return tomorrow for followup.
--- NOTE | 2016-12-05 18:52 | NUR ---
emesis pt had had no appetite all day, only taking few fluids and refusing all meals today. at about 1800 she became nauseated and had a 120cc clearish green emesis
[2016-12-05] MEDS ORDERED: Labetalol 5 mg/mL 4 mL Inj IVPUSH PRN (19:15)
--- NOTE | 2016-12-05 19:16 | PCM.PNMED ---
Subjective Date of Service Dec 05, 2016 Subjective Patient is seen and examined. She says not passing gas much, feels full and somewhat bloated. She does not remember when she had her last BM. More alert and oriented, not using pain meds much. He took 8 mg of morphine in 12 hours per nursing Exam Vital Signs Vital Sign - Last Date Time Temp Pulse Resp B/P Pulse Ox O2 Delivery O2 Flow Rate FiO2 12/05/16 17:58 36.8 100 16 166/111 96 Room Air 12/03/16 14:15 8 100 Intake and Output 12/04/16 12/04/16 12/05/16 Cumulative From/Thru 14:59 22:59 06:59 11/26/16 10:44 - 12/05/16 04:41 Intake Total 300 ml 850 ml 840 ml 36173 ml Output Total 850 ml 725 ml 8470 ml Balance 300 ml 0 ml 115 ml 9721 ml Intake Oral 100 ml 200 ml 7852 ml IV Total 300 ml 158 ml 210 ml 9025 ml TPN/PPN 592 ml 430 ml 1314 ml Output Urine Total 500 ml 725 ml 5285 ml Stool Total 410 ml Gastric Drainage Total 250 ml 500 ml Emesis 100 ml 2275 ml Estimated Blood Loss 0 ml # Voids 44 # Bowel Movements 0 9 Exam Gen.: No acute distress patient appears tired HEENT: Normocephalic, atraumatic Heart: Regular rate and rhythm, no S3-S4 sounds Lungs: Clear to auscultation no crackles or wheezes Abdomen: Tenderness is over the epigastrium, hyperactive bowel sounds Extremities: Mild trace edema bilaterally symmetric Neurological: No focal deficits Psychiatric: Patient is endorsing some sad feelings regarding her current state of things IVs and Medications IV Fluids TPN Medications Reviewed: Medications were reviewed in detail Lab and Diagnostics Result Diagram: 12/05/160 12/05/16 0440 X-Rays, CTs and MRIs CT ABDOMEN AND PELVIS WITH CONTRAST IMPRESSION: Severe ascending and transverse colonic wall thickening in keeping with an infectious or inflammatory (statistically less likely ischemic) colitis. Of note the appendix is not discretely identified therefore cannot entirely exclude acute appendicitis although probably less likely given the long segment involvement. Nonetheless, recommend clinical and laboratory correlation. Nonobstructive right renal calculus. L3 osseous metastasis as before, with unchanged appearance Dictated by: Benny Telles M.D. 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 Upper GI partial obstruction. active - Patient had endoscopy with biopsy negative for malignancy , a stenosed, somewhat constricted region between D1 and D2. - Had colonoscopy , multiple strictures (splenic flexure in the colon) - Had endsocopical US , unsuccessful due to stricture, next step - diagnostic laproscopy was done on 12/[address] kam adhesion lysis, biopsies - Surgery , GI and Onc on board -- Patient underwent a duodenal status stent placement on 12/04 -- Patient is given morphine pump for pain control -- GI Notes: "Duodenum: High-grade irregular stenosis again identified. We were able to place a 9 cm uncovered duodenal WallFlex stent across the obstructed segment. 1. We can expect the stent to expand over the next 24 hours. 2. Liquid diet advancing to smoothie and in essence extremely well-chewed food as tolerated moving forward. 3. The patient is to resume chemotherapy as per the orders of Dr. Carlin at his discretion. From a GI standpoint this could start really in essence at any time. I understand that he will be signing out the orders to Dr. Sanders if there are any questions or concerns on that score." -- Discussed case with Dr. Carlin: " My suggestion would be that after a day or two of recovery from these procedures and hopefully some improvement of her oral intake, to proceed with systemic chemotherapy. I think the beneficial effect of the stent will be short-lived and the main goal would be to get her on systemic chemotherapy as soon as possible, even if her dietary situation is suboptimal. We discussed the usage of Doxil. We will administer it with slight dose reduction due to her currently reduced functional status. A total dose of 80 mg was calculated and this would project to approximately 43 mg/m2. Dr. Sanders is briefed about her situation and will reassess her, and it is felt that the patient can proceed. Hopefully, the chemo can start in the next couple of days while she is in hospital. Echocardiogram was ordered to evaluate baseline ejection fraction. I will be returning in office on December 17." -- We will discuss tapering off the TPN with pharmacy in the a.m. it is possible that she is not eating much because of the TPN Transverse and ascending colon colitis concerning for typhlitis, present remission, resolved - Colonoscopy done, no signs of active inflammation -symptoms resolved -Stool PCR -ve for any pathogens Metastatic ER positive, HER-2 negative breast cancer, present on admission, active -Tumor marker 123, not a huge change from previous one (119) - plan is to do endoscopic US today, take biopsies, waiting for pathology , if tumor stent to be placed, otherwise laproscopy next week - per Dr. Carlin : "She has not seen any chemotherapy of hormonal agents and therefore has a number of options of chemotherapeutic intervention including re-treatment with Taxotere and Cytoxan or single agent Doxil or a combination of AC. I am hopeful that if the current symptoms can be controlled and bypassed, that the patient can resume chemotherapy and respond agai" - Dr. Kam, Dr. Carlin, Dr. Holm on board -- Discussed case with Dr. Carlin, his recs as above -- Dr. Elizalde has seen the patient plans to start chemotherapy tomorrow Leukopenia secondary to cytotoxic agent, present on admission, resolved Hypertension, present on admission, active -consistently high, dose of lisinopril increased to 20mg daily - will monitor -- Guided in lieu of Lewis 10 mg, chlorthalidone 12.5 mg this a.m. still needed 1 dose of 10 mg IV labetalol this evening -- 1 time when necessary dose of 10 mg labetalol is placed with parameters Nutrition -Patient is status post exploratory lap biopsies are done by Dr. Kam -- Patient is status post duodenal stent by Dr. Holm - She is receiving tpn via PICC line -- We will address tapering off TPN with the pharmacy tomorrow CODE STATUS: DNR/DNI Dispo: pending clinical improvement . Pain Evaluation: Adequate Pain Control VTE Prophylaxis: SCDs VTE Mechanical Devices: Intermittant Pneumatic CD Resuscitation Status: DNR/DNI:Do Not Resuscitate/Intubate Time spent 25 minutes Jodie Woods DO Dec 05, 2016 19:16
[2016-12-05] MEDS: Total Parenteral Nutrition 1 BAG IV SCH (21:14)
[2016-12-06] MEDS: Heparin 5,000 Unit/mL Inj SUBQ SCH ×3 (00:38→16:30)
[2016-12-06 00:40] VITALS: BP 160/100; PULSE 102; RESP 16; O2SAT 96
--- NOTE | 2016-12-06 01:26 | NUR ---
HYPERTENSION/ EMESIS: Pt's BP still running high 160/100 this most recent. Per TILE ERECTOR report, Pt. had a 200 ml emesis, then Pt. reported her stomach feels better after throwing up. Will give Phenergan IV to help with emesis. Pt. awake and talking. On going care.
[2016-12-06] MEDS: Promethazine Inj 25 MG in Dextrose 5%-Pha MIX 50 ML IV PRN ×2 (01:59→13:24)
[2016-12-06 04:24] VITALS: BP 172/113; PULSE 112; RESP 16; O2SAT 97
[2016-12-06 05:38] VITALS: RESP 16; O2SAT 97
[2016-12-06 07:16] VITALS: BP 147/103; PULSE 100; RESP 18; O2SAT 97
[2016-12-06 07:16] LABS: Magnesium 2.1 mg/dL (1.6-2.6)
[2016-12-06] MEDS: TPN Per Pharmacist XX SCH (08:30)
[2016-12-06] MEDS: Pantoprazole 20 mg ER24 Tablet PO SCH ×2 (08:50→09:05)
--- NOTE | 2016-12-06 08:51 | DRSVH ---
PROCEDURE: X-RAY ABDOMEN WITH ERECT AND/OR DECUBITUS VIEWS ([id number]) INDICATIONS: Abdominal distension TECHNIQUE: 2 views of the abdomen were acquired. COMPARISON: [facility], CT, CT ABD PELVIS W CON, 11/26/2016, 14:11. [facility], CR, XR ENDO GASTRO DILATION FLUORO, 12/04/2016, 14:22. FINDINGS: Surgical changes and devices: There is a stent in the right mid abdomen likely within the duodenum. Bowel: There is intraperitoneal free air demonstrated. Multiple dilated loops of small bowel are pre sent measuring up to approximately 7.5 cm with air-fluid levels. There are also a few scattered air- fluid levels within the colon. Soft tissues: No suspicious abdominal calcifications. There is a small left pleural effusion noted. Bones: No suspicious bony abnormalities. IMPRESSION: 1. New pneumoperitoneum. 2. Multiple dilated loops of small bowel with air-fluid levels with scattered air-fluid levels also demonstrated in the colon. The findings may represent obstruction or ileus. Consider further evalua tion with CT. Findings discussed with Dr. Jodie Woods on 12/06/16 at 8:49 AM. Dictated by: Vern Francisco M.D. on 12/06/2016 at 8:40 Approved by: Vern Francisco M.D. on 12/06/2016 at 8:50
[2016-12-06] MEDS: Ondansetron 2 mg/mL 2 mL Inj IVPUSH PRN (08:52)
[2016-12-06] MEDS: Piper-Tazo 3.375 Gm/50 mL D5W Minibag Plus - Q8H over 4 hrs IV SCH ×6 (10:35→21:15)
--- NOTE | 2016-12-06 11:03 | PCM.PHAPRO ---
Progress TPN TPN daily dosing day 4 S/O: * Patient NPO for surgery, on oral pantoprazole * trial of oral liquid diet failed * patient tachy today, worsening clinical picture * needs N/G tube A/P: * d/c oral pantoprazole * add famotidine 40mg into TPN due to IV pantoprazole shortage * otherwise continue same TPN formulation as below * follow-up tomorrow for possibility of advancing TPN closer to goal PARENTERAL NUTRITION ORDERS 4 06-Dec-16 Standard Hang Time: 2100 Substrates Total kcal: 1330 AMINO ACIDS 75 g DEXTROSE 200 g Total Volume (mL): 1000 LIPIDS 35 g Sterile Water for Injection mL To Infuse Over (hrs): 24 Total Volume 1000 mL At at a rate of (mL/hr): 42 Additives Sodium Chloride 60 mEq "typical" daily requirements Sodium Acetate mEq Sodium 50-120mEq Potassium Chloride 30 mEq Potassium 60-120mEq Potassium Phosphate 20 mEq Phosphate 20-40mEq Calcium Gluconate 4.65 mEq Magnesium 8-32mEq Magnesium Sulfate 8 mEq Calcium 9-22mEq Acetate* 80-120mEq Chloride* 80-120mEq Regular Insulin units *Depending on acid-base status Famotidine 40 mg Multivitamins 1 std dose Insulin Regimen Trace Elements 1 std dose none Thiamine 100 mg Regular Low Intensity Subcut Folic Acid 1 mg Regular Medium Intensity Subcut Ascorbic Acid mg Regular High Intensity Subcut Regular Insulin Infusion Other: Special Instructions: To be infused via central line only. For delay or inturruption of TPN contact the pharmacist for alternative replacement solution. Mesha Hernandez Pharm.D Dec 06, 2016 11:03
[2016-12-06] MEDS ORDERED: fentaNYL-PF 50 mCg/mL 2 mL Inj ONE (11:12)
[2016-12-06] MEDS ORDERED: MeTOProlol 1 mg/mL 5 mL Inj ONE ×2 (11:12→11:40)
[2016-12-06] MEDS ORDERED: Phenylephrine/NS 100 mCg/mL 10 mL Syringe IVPUSH ONE (11:12)
[2016-12-06] MEDS ORDERED: Glycopyrrolate 0.2 MG/ML 1mL Inj ONE (11:12)
[2016-12-06] MEDS ORDERED: Neostigmine 1 mg/mL 10 mL Inj ONE (11:12)
[2016-12-06] MEDS ORDERED: Ondansetron 2 mg/mL 2 mL Inj ONE (11:12)
[2016-12-06] MEDS ORDERED: SODIUM CHLORIDE 0.9% IV ONE (11:25)
[2016-12-06] MEDS ORDERED: SODIUM PHOSPHATE IV ONE (11:25)
[2016-12-06] MEDS ORDERED: Phenylephrine 10,000 mCg/mL Inj ONE (11:40)
[2016-12-06] MEDS ORDERED: Rocuronium 10 mg/mL 5 mL Inj ONE (11:40)
[2016-12-06] MEDS ORDERED: Propofol 10,000 mCg/mL 20 mL Inj ONE (11:40)
--- NOTE | 2016-12-06 11:40 | NUR ---
NG placement NG placed at 1030. Measured NG down to 60cm but was only able to insert to 50cm before coming to a hard stop. Unable to advance farther. Very small amount of clear liquids return. Dr. Woods ordered stat chest xray to confirm placement. Waiting for MD to read. Pt transferring up to [facility] for closer monitoring. Care conts
--- NOTE | 2016-12-06 11:49 | NUR ---
Transfer 11:[address] scan via bed, then to [facility] room 2007. Report given to Mary Beck RN. All belongings sent with pt and .
[2016-12-06 12:12] VITALS: BP 172/110; PULSE 102; RESP 18; O2SAT 99
--- NOTE | 2016-12-06 12:50 | NUR ---
Social Work- Multidisciplinary Rounds Pt discussed in rounds. Pt to transfer to [facility]. [facility] DIAMOND POWDER TECHNICIAN notified [facility] DIAMOND POWDER TECHNICIAN of transfer. SW is following for HH or home infusion needs. Rosemary Ovalles, DIAMOND POWDER TECHNICIAN
--- NOTE | 2016-12-06 13:20 | DRSVH ---
PROCEDURE: X-RAY CHEST ONE VIEW ([id number]) INDICATIONS: NG Tube placement verification TECHNIQUE: One view of the chest was acquired. COMPARISON: [facility], CR, XR ABD W ERECT + OR DECUB 2 VW, 12/06/2016, 7:38. [facility], CR, XR CHEST 1VW (PORTABLE), 03/31/2015, 5:52. FINDINGS: Surgical changes and devices: Nasogastric tube has been placed tip projected over the distal esophagu s at the GE junction. Right PICC present tip projected over the mid-lower SVC. Gastroduodenal stent present. Lungs and pleura: No pleural effusions or pneumothorax. Air space opacity involves the left lung ba se. Mediastinum: Mediastinal contours appear normal. Heart size is normal. Bones and chest wall: No suspicious bony lesions. Overlying soft tissues appear unremarkable. Pneumoperitoneum redemonstrated and there is gaseous distention of bowel loops within the upper abdom en. Bilateral neck and left chest/abdominal subcutaneous emphysema noted. IMPRESSION: 1. Placement nasogastric tube with tube tip near the GE junction. Recommend tube advancement. 2. Pneumoperitoneum redemonstrated and gaseous distention of multiple bowel loops within the upper ab domen again noted. 3. Left basilar atelectasis versus aspiration or pneumonia. 4. Extensive bilateral neck, left chest and abdominal wall subcutaneous emphysema. Recommend chest C T scan for further assessment. Dr. Woods given results at 1208 hrs. 12/06/2016. Dictated by: Moreno VILLANUEVA Interpreted: Benny Telles MD on 12/06/2016 at 11:41 Approved by: Benny Telles M.D. on 12/06/2016 at 13:18
[2016-12-06 13:23] VITALS: PULSE 108
[2016-12-06] MEDS ORDERED: Labetalol 5 mg/mL 20 mL Inj IV ONE (13:25)
--- NOTE | 2016-12-06 13:36 | DRSVH ---
PROCEDURE: CT ABDOMEN AND PELVIS WITH CONTRAST ([id number]) INDICATIONS: free air on abd x-ray. History of breast cancer. TECHNIQUE: After the administration of oral and intravenous contrast, 5 mm thick sections acquired from the diap hragms to the symphysis. 5 mm thick coronal and sagittal reformats were performed. For radiation do se reduction, the following was used: automated exposure control, adjustment of mA and/or kV accordi ng to patient size. COMPARISON: [facility], [place], [place] BONE SCAN WHOLE BODY, 04/16/2016, 13:39. [facility], CT, CT ABD PELVIS W CON, 03/30/2015, 15:38. [facility], CT, CT ABD PELVIS W CON , 11/26/2016, 14:11. [facility], CT, CT CHEST ABD PELVIS W CON, 04/16/2016, 11:59. FINDINGS: Image quality: Excellent. ABDOMEN: Lung bases: There is a small left-sided pleural effusion with associated atelectasis. Mild atelectas is at the right lung base is noted. Heart size is normal. Pneumomediastinum is present. Solid organs: The liver is normal in size. The gallbladder is slightly prominent. No focal liver l esion is evident. There is moderate intrahepatic and prominent extrahepatic biliary dilatation. The common bile duct measures up to approximately 1.2 cm in diameter, unchanged since 03/30/15. The spl een is within normal limits. There is mild enlargement of the left adrenal gland without a definable lesion evident. This appearance is unchanged since at least 2014. The pancreas is normal in size. Moderate enlargement of the main pancreatic duct is not significantly changed and is noted to measur e up to approximately 7 mm. The kidneys are normal in size. Mild heterogeneous enhancement of the c entral aspect of the kidneys is noted. There is no significant hydronephrosis. Previously seen righ t renal calculus probably has not changed. The ureters are not adequately evaluated. Peritoneum and bowel: Orogastric tube is identified with the tip located at the gastroesophageal shraddha ction. The stomach is otherwise unremarkable. There is an enteral stent identified involving the du odenum, which is new since the previous examination. Anastomotic sutures are evident involving one o f the proximal jejunal loops, which is new since the previous exam. The more distal small bowel loop demonstrated postoperative changes as again present. Multiple dilated small bowel loops demonstrati ng air-fluid levels are seen throughout the abdomen, best appreciated within the region of the pelvis , measuring up to 3.5 cm in diameter. The colon is not well evaluated on this exam. However, there is prominence of the wall of the descending colon near the hepatic flexure (image 46, series 2) with moderate surrounding edema and fluid within the right paracolic gutter. There is a small moderate am ount of free fluid within the abdomen. No drainable or loculated fluid collection is evident. There is pneumoperitoneum. Nodes and vessels: No retroperitoneal or mesenteric adenopathy. Aorta and inferior vena cava are no rmal in caliber. Mild ectasia and atherosclerosis of the abdominal aorta is noted. Bones: Prominent sclerosis involving the L3 vertebral body and posterior elements is again evident, n ot significantly changed. No new fracture or suspicious osseous lesion is evident. Other: Subcutaneous air is identified involving the anterior left chest as well as the lower right ch est and the anterior margin of the abdomen (left more than right). There is subcutaneous edema ident ified overlying the anterior left hip region without a drainable fluid collection. PELVIS: Genitourinary: Bladder wall thickness is normal. The uterus and ovaries do not appear to be enlarge d. Miscellaneous: No inguinal hernias or adenopathy. Small amount of free fluid is seen within the pel vis. There is no loculated fluid collection. Bones: No suspicious bony lesions. No acute fracture the pelvis is evident. There are moderate deg enerative changes of the bilateral hips. Focal area of sclerosis involving the left greater trochant er is evident, anteriorly, probably not significantly changed since the previous exam. There also is sclerosis evident involving the anterior margin of the left acetabulum, not significantly changed. No additional suspicious osseous lesions of the pelvic structures are evident. No new bone lesions a re identified. IMPRESSION: 1. Small to moderate amount of free air is of uncertain origin, but may be related to a nonvisualize d perforation/leak at the duodenal stent and/or proximal jejunal anastomosis and clinical correlation is recommended. However, this free air could potentially be benign related to recent laparoscopic s urgery. Please correlate clinically. A CT of the abdomen with oral contrast maybe helpful to determ ine if there is a bowel perforation/leak. 2. There are at least a small bowel ileus. A partial bowel obstruction may be present. 3. Moderate thickening of the wall of the ascending colon suspicious for colitis. However, a metast atic deposit is difficult to exclude. 4. Pneumomediastinum is of uncertain etiology, but does raise the suspicion for possible esophageal perforation. CT of the chest would be helpful for better evaluation. 5. Small amount of ascites. No drainable fluid collection or abscess. 6. Small left-sided pleural effusion. 7. Heterogeneous enhancement of the kidneys is of doubtful significance. Please correlate clinicall y to exclude pyelonephritis. 8. Marked intrahepatic/extrahepatic biliary dilatation and dilatation of the main pancreatic duct. This has not changed since 2014. 9. Bony metastases as described. Note: Pertinent findings were discussed with Dr. Woods at 1300 hours (PST) on 12/06/16. Dictated by: Froest Marion M.D. on 12/06/2016 at 11:33 Approved by: Forest Marion M.D. on 12/06/2016 at 12:34
[2016-12-06] MEDS: Morphine PCA 1 mg/mL 30 mL Inj IV PRN (14:40)
[2016-12-06] MEDS: Piperacillin-Tazo 3.375 Gm Inj 3.375 GM in Dextrose 5% Minibag Plus 50 ML IV SCH ×2 (15:00→23:00)
--- NOTE | 2016-12-06 15:00 | NUR ---
Transfer of Care to PCC/IV antibiotics No reports of chest pain/pressure/discomfort. Tele sinus tach 110-120, systolic BP 160s-170s/100-110. MD aware. Scheduled IV Enalapril administered per MD orders. No reports of SOB/dizziness. SPO2 on RA within normal limits. NPO, NG tube to low continuous suction. Reports ongoing nausea, IV phenergan given. Reports continuous abdominal pain 6-11/19. Voiding dark yellow urine via BSC with assistance. Patient left for surgery at approx 1500. Sent IV Zosyn as well as IV Fluconazole with CHETAN Fair[place] in surgery. Sent patient on TPN, disconnected phosphorous rider for anesthesiology access. Per surgery, will start one additional peripheral IV.
--- NOTE | 2016-12-06 15:19 | PCM.PNSURG ---
Subjective Date of Service: Dec 06, 2016 Subjective: Worsening abdominal pain and nausea overnight Reports several episodes of emesis Believes abdomen is more bloated and firm today Afebrile Overall does not feel well Objective Vital Sign- Last 8 Hours Date Time Temp Pulse Resp B/P Pulse Ox O2 Delivery O2 Flow Rate FiO2 12/06/16 13:23 108 12/06/16 12:12 36.3 102 18 172/110 99 Room Air 12/06/16 07:16 36.7 100 18 147/103 97 Room Air Intake and Output- Last 8 Hour 12/06/16 Cumulative From/Thru 07:00 11/26/16 10:44 - 12/06/16 05:35 Intake Total 1485 ml 49699 ml Output Total 450 ml 9420 ml Balance 1035 ml 93348 ml Intake Oral 150 ml 8422 ml IV Total 294 ml 9319 ml TPN/PPN 1041 ml 2355 ml Output Urine Total 100 ml 5885 ml Stool Total 410 ml Gastric Drainage Total 500 ml Emesis 350 ml 2625 ml Estimated Blood Loss 0 ml # Voids 45 # Bowel Movements 0 9 General: Alert, Cooperative, Mild Distress Neck: Supple Lungs: Normal Air Movement Heart: Other (Tachycardic.) Abdomen: Other (Diffusely tender to palpation, moderately distended but not rigid. No guarding. Laparoscopic trocar incisions covered by clean dressings. ) Extremities: Warm Neuro: Grossly Neurologically Intact Result Diagram: 12/05/16 0440 12/06/16 0530 Assessment & Plan Impression 66F with stage IV breast cancer metastatic to the bowel with associated GOO s/p duodenal stent on 12/04. She was found to have radiographic evidence of intra- abdominal free air after presenting with worsening pain, nausea, and tachycardia today with concern for duodenal perforation associated with the stent. Problems: Plan - CT abdomen/pelvis demonstrates significant subcutaneous emphysema, likely from intra-abdominal source, but will obtain chest CT to ensure no pneumothorax - Following this, she will require exploratory laparotomy for possible repair/ resection of perforation and removal of duodenal stent - Needs IV antibiosis with fluconazole and zosyn - Type and cross - NPO now Case discussed with Dr. Gusman. VTE Prophylaxis: SCDs Resuscitation Status: DNR/DNI:Do Not Resuscitate/Intubate Jeff Phillips MD Dec 06, 2016 15:19 Malini Gusman MD Dec 08, 2016 06:39 VTE Prophylaxis: SCDs Resuscitation Status: DNR/DNI:Do Not Resuscitate/Intubate Jeff Phillips MD Dec 06, 2016 15:19
[2016-12-06] MEDS: Fluconazole Inj 400 MG in IV Premix 1 EACH IV SCH ×2 (15:30→16:40)
[2016-12-06] MEDS ORDERED: EPHEDrine Sulfate 50 mg/mL Inj IV PRN (15:40)
[2016-12-06] MEDS ORDERED: Atropine 1 mg/mL Inj IVPUSH PRN (15:40)
[2016-12-06] MEDS ORDERED: fentaNYL-PF 50 mCg/mL 2 mL Inj IVPUSH PRN (15:40)
--- NOTE | 2016-12-06 15:42 | PCM.HPANE ---
Patient Data Surgeon Admitting Provider:Fab Solorio MD Attending Provider:Jodie Woods DO Primary Care Physician:Karen Lopez PA-C Other Provider:Jesse Leyva Anesthesia Reason for Visit Typhlitis, Gastric Outlet Obstruction TYPHLITIS Ht/WT & BMI Height (Feet): 5 Height (Inches): 8.00 Weight (Kilograms): 71.100 Body Mass Index 24.00 Allergies Coded Allergies: meperidine (Verified Allergy, Severe, Nausea,Vomiting, 11/26/16) Past Anesthesia History Anesthesia History: Positive for:: Anesthesia Reactions (DEMEROL AFTER SURGERY) , Denies:: Abnormal Airway, Difficult Intubation, Fam Anesthesia Reaction, Fam Malignant Hypertherm, Malignant Hyperthermia Diabetes History Hx Diabetes?: No Current Bedside Blood Glucose: 124 MRSA MRSA: No Medications Home Meds Incl Beta Milagros: No Reported Medications Fulvestrant (Faslodex)250 Mg/Syr SyringeUnknown Dose IM every 28 days 11/26/16 Letrozole 2.5 Mg Tablet2.5 Mg PO DAILY Ref 0 11/07/16 Palbociclib (Ibrance)125 Mg [id number] Mg PO [id number],off 7 08/13/16 Lisinopril 10 Mg [id number] Mg PO DAILY #30 TABLET Ref 6 03/21/16 Calcium Carbonate (Calcium)600 Mg [id number] Mg PO DAILY 06/29/15 Multivitamin (Multivitamins)1 Each Capsule1 Each PO DAILY 06/10/15 History History of ENT Problems?: Yes HEENT History: Positive for:: Sinus Problem (SEASONAL ALLERGIES.) Denies:: Abnormal Airway Cataracts Difficult Intubation Dysphagia Hearing Problem Denture Type: None Teeth Condition: Within Normal Limits Hx of Heart Problems?: Yes Cardiovascular History: Positive for:: Hypertension Denies:: AICD Atrial Fibrillation Cardiac Surgery Chest Pain Congestive Heart Failure Edema Heart Murmur Irregular Heartbeat Pacemaker Thrombophlebitis Valvular Heart Disease Hx of Respiratory Problem?: No Respiratory History: Denies:: Asthma COPD Chest Surgery Cough Dyspnea Emphysema Hemoptysis Pneumonia Tuberculosis Hx Neurologic Problems?: Yes Neurological History: Positive for:: Headaches (MIGRAINE) Denies:: Alzheimer's Disease CVA Dementia Dizziness Parkinson's Disease Seizures Hx of GI Problems?: Yes Hx of Problems?: No Genitourinary History: Denies:: HX of Hemodialysis Kidney Stones Urinary Tract Infection HX of Peritoneal Dialysis: No Female Hx: Denies:: Currently Endometriosis Pelvic Inflammatory Problems with Breasts? Hx Musculoskeletal Problems?: Yes Musculoskeletal History: Positive for:: Back Injury Denies:: Fibromyalgia Joint Replacement Musculoskeletal Trauma Hx of Psycho/Social Problems?: Yes Psycho Social History: Positive for:: Anxiety Denies:: Bipolar Disorder Hx Depression Suicide Attempt Hx Surgeries?: Yes (TONSILLECTOMY, APPENDENCTOMY, KNEE SURGERY) Hx Any Other Health Problems?: Yes Other History: Positive for:: Cancer (metastatic breast cancer) Hospitalization ([facility], [facility]) Denies:: Thyroid Disease History Blood Transfusions: Positive for:: Accept Blood Products? Denies:: Blood Transfuse Reaction Blood Transfusions Hx Diabetes: NoBedside Blood Glucose: 124 Hx Alcohol Use: NoHx Substance Use: No Smoking Status: Never Smoker Have You Smoked inLast 12 mo: No Stop/Bang Treated for Sleep Apnea?: No Do You Have a CPAP Machine?: No S-Snoring: Do You Snore Loudly: No T-Tired: feel tired, fatigued: No O-Obsered: Observed not breath: No P-Blood Pressure: treated: Yes B- Body Mass Index > 35 kg/m2: No A- Age over 50: Yes N- Neck Large Circumference: No G- Gender Male: No PENNY Total Score: 2 PENNY Risk Assessment: Low Risk, <3 Yes Risk Assessment Category Category 1A: Patient has history of documented sleep apnea, and HAS NOT received any narcotic, sedative or anesthesia administration during this stay. Category 1B: Patient has history of documented sleep apnea, and HAS received any narcotic , sedative or anesthesia administration during this stay Category 2: Patient has SUSPECTED Obstructive Sleep Apnea, and HAS received any narcotic , sedative or anesthesia administration during this stay. Category 3: Patient has SUSPECTED Obstructive Sleep Apnea and HAS NOT received narcotic, sedative or anesthesia administration during this stay. Category 4: Outpatient in Procedural Areas with known sleep apnea or who screen positive for High Risk via the STOP/BANG questionnaire. Low Risk, <3 Yes Exam Exam Vital Signs Vital Signs Date Time Temp Pulse Resp B/P Pulse Ox O2 Delivery O2 Flow Rate FiO2 12/06/16 13:23 108 12/06/16 12:12 36.3 102 18 172/110 99 Room Air General Appearance: Alert, Oriented X3, Cooperative, No Acute Distress HEENT/AIRWAY: MP 2, Neck Movement, Mouth Opening Lungs: Normal Air Movement Heart: Other (Tachycardic.) Meds/Labs/Diagnostics Admission Meds Current Medications Labetalol HCl 10 mg 10 mg ONCE ONCE IVPUSH Last administered on 12/05/16 20: 11; Start 12/05/16 at 18:25; Stop 12/05/16 at 18:26; Status DC Piperacillin Sod/ Tazobactam Sod/ Dextrose/Water (Zosyn 3.375 Gm Inj/D5W Minibag Plus) 50 ml @ 100 mls/hr ONCE IV Last administered on 12/06/16 10:35 ; Start 12/06/16 at 10:10; Stop 12/06/16 at 11:29; Status DC Enalaprilat 1.25 mg 1.25 mg Q6 IVPUSH Last administered on 12/06/16 14:40; Start 12/06/16 at 14:30 Sodium Phosphate/ Sodium Chloride (Sodium Phosphate Inj/ Normal Saline) 510 ml @ 85 mls/hr ONCE ONCE IV Last administered on 12/06/16 14:41; Start at 11:25; Stop 12/06/16 at 17:24 Bedside Blood Glucose: 124 Labs Test 11/26/16 11:05 11/26/16 11:37 11/26/16 12:04 11/28/16 08:45 Hold Urine Received (Received) Lipase 193U/L (13-60) Procalcitonin 0.05ng/mL (0.00-0.08) Lactic Acid Level 1.3mmol/L (0.4-2.0) Hold Ospina Top Tube Received (Received) CA 27.29 123.7U/mL (0.0-38.6) Test 11/30/16 06:11 12/02/16 05:43 12/03/16 09:10 12/03/16 15:09 Prothrombin Time 11.2sec (8.1-12.5) Prothromb Time International Ratio 1.05ratio Neutrophils (%) (Auto) 48.2% (40-74) Lymphocytes (%) (Auto) 36.8% (14-46) Monocytes (%) (Auto) 10.3% (4-12) Eosinophils (%) (Auto) 4.3% (0-5) Basophils (%) (Auto) 0.4% (0-3) Triglycerides Level 158mg/dL (0-149) Urine Color Yellow (YELLOW) Urine Appearance Hazy (CLEAR,HAZY) Urine pH 8.5 (5.0-8.0) Urine Specific [place] 1.020 (1.003-1.035) Urine Protein 100mg/dL (NEG,TRACE) Urine Glucose (UA) Negativemg/dL (NEGATIVE) Urine Ketones 80mg/dL (NEGATIVE) Urine Occult Blood Negative (NEGATIVE) Urine Nitrite Negative (NEGATIVE) Urine Bilirubin Negative (NEGATIVE) Urine Urobilinogen Normalmg/dL (NORMAL) Urine Leukocyte Esterase Negative (NEGATIVE) Urine RBC 0-2/hpf (0-2) Urine WBC 0-5/hpf (0-5) Urine Epithelial Cells Occasional/hpf (NONE-MOD) Urine Crystals Oxalic acid crystals (NONE Urine Bacteria None/hpf (NONE-FEW) Urine Hyaline Casts None/lpf (NONE) Urine Granular Casts None seen (NONE SEEN) Urine Waxy Casts None seen (NONE SEEN) Urine Red Blood Cell Casts None seen (NONE SEEN) Urine White Blood Cell Casts None seen (NONE SEEN) Urine Mucus Present (None Seen) Urine Trichomonas None seen (NONE SEEN) Urine Yeast None (NONE SEEN) Urinalysis Comment None Urine Culture Reflexed Not indicated Test 12/05/16 04:40 12/06/16 05:30 White Blood Count 7.5th/mm3 (3.8-10.1) Red Blood Count 3.18mil/mm3 (3.90-5.20) Hemoglobin 10.8g/dL (12.0-15.6) Hematocrit 32.1% (35.0-46.0) Mean Corpuscular Volume 100.9fL (81-100) Mean Corpuscular Hemoglobin 34.0pg (27.0-35.0) Mean Corpuscular Hemoglobin Concent 33.6% (32.0-37.0) Red Cell Distribution Width 14.4% (12.3-15.4) Platelet Count 220bil/L (150-400) Sodium Level 139mEq/L (134-144) Potassium Level 4.3mEq/L (3.5-5.2) Chloride Level 104mEq/L (97-108) Carbon Dioxide Level 24mmol/L (18-29) Blood Urea Nitrogen 27mg/dL (8-27) Creatinine 0.43mg/dL (0.57-1.00) Estimat Glomerular Filtration Rate 209mL/min (>59) Glucose Level 135mg/dL (60-99) Calcium Level 9.2mg/dL (8.5-10.1) Phosphorus Level 2.0mg/dL (2.5-4.9) Magnesium Level 2.1mg/dL (1.6-2.6) Total Bilirubin 0.2mg/dL (0.0-1.2) Aspartate Amino Transf (AST/SGOT) 25U/L (0-50) Alanine Aminotransferase (ALT/SGPT) 24U/L (0-32) Alkaline Phosphatase 69U/L (25-165) Total Protein 5.8g/dL (6.4-8.4) Albumin 3.6g/dL (3.4-5.0) Plan Impression Patient chart reviewed, patient interviewed and anesthestic plan with risks, benefits, and alternatives discussed, and informed consent obtained. NPO per Anesth. Guidelines: Yes ASA Physical Status: ASA4 Life Threatening Anesthetic Support Modalities: Arterial Line Anesthetic Plan: GA, Epidural Bene/Risks/Altern/Consents: Yes HP Complete Prior to Induction: Yes Waylon Santiago MD Dec 06, 2016 15:42
[2016-12-06] MEDS ORDERED: fentaNYL 2 mCg/mL-Bupivicaine 0.125% 100 mL Premix EPIDURAL ONE (15:48)
--- NOTE | 2016-12-06 16:11 | DRSVH ---
PROCEDURE: CT CHEST, ABDOMEN AND PELVIS WITHOUT CONTRAST ([id number]) INDICATIONS: History of breast cancer with pneumoperitoneum. Evaluate for possible bowel perforation . Patient is postoperative day 3 status post recent exploratory laparoscopy. TECHNIQUE: After the administration of oral contrast, 5 mm thick sections acquired from the lung apices to the s ymphysis pubis. 5 mm thick coronal and sagittal reformats acquired, with additional 7 mm coronal MIP reformats through the lungs. For radiation dose reduction, the following was used: automated expos ure control, adjustment of mA and/or kV according to patient size. COMPARISON: [facility], CT, CT ABD PELVIS W CON, 11/26/2016, 14:11. [facility], CT, CT ABD PELVIS W CON, 12/06/2016, 11:41. FINDINGS: Image quality: Excellent. CHEST: Lungs and pleura: There are small bilateral pleural effusions with associated compressive atelectasi s. No pneumothorax. No focal consolidation. Central and peripheral airways are patent are normal i n caliber. Mediastinum: There is a small amount of pneumomediastinum. There is a right upper extremity PICC levi e with the tip at the cavoatrial junction. Heart size is normal. No pericardial effusion. No media stinal adenopathy by CT size criteria. Thoracic aorta and central pulmonary arteries are normal in s ize. There is a nasogastric tube extending into the stomach. Esophagus is normal in caliber. No hi atal hernia. Chest wall: There is a large amount of subcutaneous emphysema in the chest wall, left greater than r ight. No axillary or supraclavicular adenopathy by size criteria. ABDOMEN: Solid organs: Liver and spleen are normal in size. Gallbladder is distended without calcified galls tones. There is intra-and extrahepatic biliary ductal dilatation redemonstrated. Pancreas is normal in contours. No adrenal nodules. Kidneys demonstrate no hydronephrosis. There is slight heterogen eous attenuation of the right kidney redemonstrated. Peritoneum and bowel: There is a moderate amount of pneumoperitoneum redemonstrated with a predomina nce in the left upper quadrant between bowel loops adjacent to the 4th portion of duodenum. A small to moderate amount of free fluid is demonstrated in the abdomen and pelvis. No definite extra lumina l contrast visualized. There is a metallic stent extending from the 2nd to 4th portions of the duodenum. There is bowel wal l thickening of the duodenum redemonstrated likely representing metastatic disease. There is also se gmental bowel wall thickening involving the terminal ileum and in the colon extending from the mid as cending colon to the mid transverse colon suspicious for metastatic disease. There are multiple mild ly dilated loops of small bowel distally measuring up to 3.5 cm in diameter with air-fluid levels sug gestive of a small bowel obstruction. There is a small amount of gas and fluid in the colon. Nodes and vessels: No retroperitoneal or mesenteric adenopathy by size criteria. Aorta and inferior vena cava are normal in size. Miscellaneous: No ventral hernias. There is extensive subcutaneous emphysema also demonstrated with in the abdominal wall predominately on the left. PELVIS: Genitourinary: Bladder wall thickness is normal. Miscellaneous: No inguinal hernias or adenopathy. Bones: There is osteopenia. There are sclerotic lesions redemonstrated within the L3 vertebral body consistent with metastatic disease with associated mild to moderate compression deformity along the left aspect. No retropulsed fragments in the spinal canal. A sclerotic lesion is also demonstrated within the right posterior 4th rib compatible with metastatic disease. IMPRESSION: 1. Moderate pneumoperitoneum redemonstrated with a predominance in the left upper quadrant adjacent to the 4th portion of the duodenum in proximity to the distal end of the small bowel stent. The find ings likely represent a perforation associated with stent migration. 2. Small to moderate amount of free fluid in the abdomen and pelvis is nonspecific and may be associ ated with the bowel perforation, related to recent surgery, or reflect reactive changes. 3. Large amount of subjacent edema in the thoracic and abdominal graff likely related to recent lapa roscopic surgery. 4. Small amount of pneumomediastinum likely secondary to the subcutaneous emphysema or pneumoperiton eum. Findings with discussed with Dr. Gusman on 12/06/16 at 4 PM. 5. Multiple segments of bowel wall thickening involving the duodenum, terminal ileum, and ascending to transverse colon likely representing metastatic disease. 6. L3 metastatic lesion redemonstrated as well as a sclerotic lesion in the posterior right 4th rib. Dictated by: Vern Francisco M.D. on 12/06/2016 at 15:33 Approved by: Vern Francisco M.D. on 12/06/2016 at 16:10
[2016-12-06] MEDS: Sodium Chloride LOK Flush 10 mL Syringe IVFLUSH SCH (16:30)
[2016-12-06] MEDS ORDERED: Bupivacaine-MPF 0.25% 30 mL Inj INFILTRATE ONE (17:06)
[2016-12-06 20:21] LABS: APPEARANCE,URINE CLEAR (CLEAR,HAZY); COLOR,URINE YELLOW (YELLOW)
[2016-12-06 20:22] LABS: OCCULT BLOOD,URINE NEGATIVE (NEGATIVE); PH,URINE 5.5 (5.0-8.0); UROBILINOGEN,URINE NORMAL (NORMAL)
--- NOTE | 2016-12-06 20:25 | ABG ---
DateTimeAnalyzed 20:17:05 -_ pH ____7.365 - 7.350 7.450 pCO2 ___36.5__ -mmHg 35.0 45.0 pO2 399 -mmHg 69.0 116 HCO3- ___20.9__ -mmol/L 22.0 26.0 ABE ___-4.1__ -mmol/L tHb ___10.6__ -g/dL O2Hb ___99.6__ -% COHb ____2.2__ -% 1.5 MetHb ____0.0__ -% FIO2 ___80.0__ -% Drawn By MK - Date/Time Notified____ 20:24:00 -_ Oxygen Device 1 VENTILATOR from OR -__ Notified By MK - K+ ____3.9__ -mmol/L Jesus Alberto test N/A -
[2016-12-06] MEDS ORDERED: Lactated Ringer's 1,000 ML IV ONE ×3 (20:30→22:30)
[2016-12-06] MEDS: Total Parenteral Nutrition 1 BAG IV SCH (21:00)
[2016-12-06 22:00] LABS: Mean Corpuscular Hemoglobin 33.7 pg (27.0-35.0); Mean Corpuscular Volume 102.1 fL (81-100)
[2016-12-07] VITALS (28 sets, daily range): BP systolic 91–162; BP diastolic 68–107; PULSE 97–129; RESP 16–29; O2SAT 94–100
--- NOTE | 2016-12-07 00:13 | PCM.PNSURG ---
Assessment & Plan Impression S/p exploratory laparotomy with resection of perforated jejunum and nicole-en-Y reconstruction with gastrojejunostomy, jejunojejunostomy and ileocolonic anastomosis. Problems: Plan - NPO - NGT to low continuous wall suction - Do NOT manipulate or remove NGT unless approved by general surgery - PHOEBE drain care q8 hours - Continue IV zosyn and fluconazole - Please do not hesitate to page or call with questions/concerns. Jeff Phillips MD Dec 07, 2016 00:13 Malini Gusman MD Dec 08, 2016 06:41
[2016-12-07] MEDS: Heparin 5,000 Unit/mL Inj SUBQ SCH ×3 (00:30→17:22)
[2016-12-07] MEDS: Sodium Chloride LOK Flush 10 mL Syringe IVFLUSH SCH ×3 (00:30→17:22)
[2016-12-07] MEDS: Ondansetron 2 mg/mL 2 mL Inj IVPUSH PRN ×3 (00:39→08:15)
--- NOTE | 2016-12-07 01:03 | PCM.ANEP1 ---
Post Anesthesia PACU Phase 1 Assessment Date of Service: Dec 07, 2016 Vital Signs Vital Signs Date Time Temp Pulse Resp B/P Pulse Ox O2 Delivery O2 Flow Rate FiO2 12/07/16 01:00 110 28 146/104 94 Nasal Cannula 2 12/07/16 00:55 108 22 151/103 100 Nasal Cannula 2 12/07/16 00:50 106 26 149/98 96 Nasal Cannula 2 12/07/16 00:45 104 22 143/101 98 Nasal Cannula 2 12/07/16 00:40 104 21 132/97 99 Nasal Cannula 2 12/07/16 00:36 36.9 106 27 134/100 98 Nasal Cannula 2 12/07/16 00:32 100 Nasal Cannula 2 12/07/16 00:30 102 23 137/96 100 Simple Mask 10 12/07/16 00:20 99 29 126/97 100 Simple Mask 10 12/07/16 00:14 98 24 117/82 98 Simple Mask 10 12/07/16 00:10 98 27 124/93 99 Simple Mask 10 12/07/16 00:07 97 24 121/88 98 Simple Mask 10 12/07/16 00:02 37 99 21 102/83 99 Simple Mask 10 Anesthetic Administered: GA Level of Alertness: Awake, talking CERON's with Equal Strength: Yes Pain: No Nausea or Vomiting: No CV Function & Hydration Stable: Yes Airway Device: Oxygen Delivery: Simple Mask Lungs: Normal Air Movement PACU Phase 2 Assessment Complications: No Follow up Care: N/A Patient Instructions Provided: N/A Matt Miramontes MD Dec 07, 2016 01:03
--- NOTE | 2016-12-07 01:09 | NUR ---
2300 dose of zosyn given at 0011 in OR Addendum: 12/07/16 at 0222 by BHAVIN EDE RN Pt rec'd from PACU at 0140. Fentanyl epidural increased to 10 mL/hr per physician's order. At 0200 pt c/o nausea, 4 mg zofran given for total of 8 mg. PHOEBE drains emptied and output recorded. Continuous suction at 80/hr, suctioning dark green bile. VSS, pt sleeping.
--- NOTE | 2016-12-07 01:20 | PCM.PNMED ---
Subjective Date of Service Dec 06, 2016 Subjective Patient has had an eventful day today, she was apparently having episodes of nausea and vomiting overnight, this a.m. Dr. Kam ordered a Abd film that showed concern for perforation. Patient appears quite distressed, though she is not complaining much. Per surgery It was also felt that the duodenal stent became displaced. Discussed the findings with patient and , and they expressed their understanding Exam Vital Signs Vital Sign - Last Date Time Temp Pulse Resp B/P Pulse Ox O2 Delivery O2 Flow Rate FiO2 12/06/16 07:16 36.7 100 18 147/103 97 Room Air 12/03/16 14:15 8 100 Intake and Output 12/05/16 12/05/16 12/06/16 Cumulative From/Thru 15:00 23:00 07:00 11/26/16 10:44 - 12/06/16 05:35 Intake Total 420 ml 1485 ml 22198 ml Output Total 500 ml 450 ml 9420 ml Balance -80 ml 1035 ml 89876 ml Intake Oral 420 ml 150 ml 8422 ml IV Total 294 ml 9319 ml TPN/PPN 1041 ml 2355 ml Output Urine Total 500 ml 100 ml 5885 ml Stool Total 410 ml Gastric Drainage Total 500 ml Emesis 350 ml 2625 ml Estimated Blood Loss 0 ml # Voids 1 45 # Bowel Movements 0 9 Exam Gen.: patient appears distressed HEENT: Normocephalic, atraumatic Heart: Tachycardic, no S3-S4 sounds Lungs: No abnormal lung sounds anteriorly Abdomen: Tenderness is over the epigastrium, absent bowel sounds, distended abdomen Extremities: Mild trace edema bilaterally symmetric Neurological: No focal deficits IVs and Medications Medications Reviewed: Medications were reviewed in detail Lab and Diagnostics Result Diagram: 12/05/16 0440 12/06/16 0530 X-Rays, CTs and MRIs CT ABDOMEN AND PELVIS WITH CONTRAST IMPRESSION: Severe ascending and transverse colonic wall thickening in keeping with an infectious or inflammatory (statistically less likely ischemic) colitis. Of note the appendix is not discretely identified therefore cannot entirely exclude acute appendicitis although probably less likely given the long segment involvement. Nonetheless, recommend clinical and laboratory correlation. Nonobstructive right renal calculus. L3 osseous metastasis as before, with unchanged appearance Dictated by: Benny Telles M.D. on 11/26/2016 at 14:18 Assessment & Plan Vernell Bailon is a 66-year-old woman with past medical history significant for ER positive HER-2 negative metastatic breast cancer which initially presented as small bowel obstruction secondary to diffuse small bowel infiltration was initially diagnosed in late 2013 who presents to the [facility] emergency department today due to nausea and vomiting and recurrent mild abdominal pain. Perforated bowel, acute thought to be due to duodenal stent migration to jejunum causing a perf in jejunum -- Evidenced by the abdominal x-rays a.m. "New pneumoperitoneum. Multiple dilated loops of small bowel with air-fluid levels with scattered air-fluid levels also demonstrated in the colon. The findings may represent obstruction or ileus. Consider further evaluation with CT." Radiology called with this report on 12/06 AM, a follow-up CT abdomen without by mouth contrast was ordered by me that showed according to radiology report "1. Small to moderate amount of free air is of uncertain origin, but may be related to a nonvisualized perforation/leak at the duodenal stent and/or proximal jejunal anastomosis and clinical correlation is recommended. However, this free air could potentially be benign related to recent laparoscopic surgery. Pneumomediastinum is of uncertain etiology, but does raise the suspicion for possible esophageal perforation. CT of the chest would be helpful for better evaluation. Bony metastases as described." -- Patient is transferred to PCU -- Nursing attempted to put an NG tube, were concerned that they included an obstruction. Chest x-ray was ordered Rads read: "Extensive bilateral neck, left chest and abdominal wall subcutaneous emphysema. Recommend chest CT scan for further assessment" -- Received a phone call from surgery resident following this first abdominal scan, asking for a second scan with PO contrast -- Thus, a CT abd/ pelvic/chest W PO contrast was ordered, per rads read" 1. Moderate pneumoperitoneum redemonstrated with a predominance in the left upper quadrant adjacent to the 4th portion of the duodenum in proximity to the distal end of the small bowel stent. The findings likely represent a perforation associated with stent migration. Small amount of pneumomediastinum likely secondary to the subcutaneous emphysema or pneumoperitoneum. L3 metastatic lesion redemonstrated as well as a sclerotic lesion in the posterior right 4th rib." -- Dr. robertson discussed the findings with the patient and , took patient to the OR later in the evening. Upper GI partial obstruction. active - Patient had endoscopy with biopsy negative for malignancy , a stenosed, somewhat constricted region between D1 and D2. - Had colonoscopy , multiple strictures (splenic flexure in the colon) - Had endsocopical US , unsuccessful due to stricture, next step - diagnostic laproscopy was done on 12/[address] kam adhesion lysis, biopsies - Surgery , GI and Onc on board -- Patient underwent a duodenal status stent placement on 12/04 -- Patient is given morphine pump for pain control -- GI Notes 12/04: "Duodenum: High-grade irregular stenosis again identified. We were able to place a 9 cm uncovered duodenal WallFlex stent across the obstructed segment. 1. We can expect the stent to expand over the next 24 hours. 2. Liquid diet advancing to smoothie and in essence extremely well-chewed food as tolerated moving forward. 3. The patient is to resume chemotherapy as per the orders of Dr. Carlin at his discretion. From a GI standpoint this could start really in essence at any time. I understand that he will be signing out the orders to Dr. Sanders if there are any questions or concerns on that score." -- Discussed case with Dr. Carlin on 12/03: " My suggestion would be that after a day or two of recovery from these procedures and hopefully some improvement of her oral intake, to proceed with systemic chemotherapy. I think the beneficial effect of the stent will be short-lived and the main goal would be to get her on systemic chemotherapy as soon as possible, even if her dietary situation is suboptimal. We discussed the usage of Doxil. We will administer it with slight dose reduction due to her currently reduced functional status. A total dose of 80 mg was calculated and this would project to approximately 43 mg/m2. Dr. Sanders is briefed about her situation and will reassess her, and it is felt that the patient can proceed. Hopefully, the chemo can start in the next couple of days while she is in hospital. Echocardiogram was ordered to evaluate baseline ejection fraction. I will be returning in office on December 17." -- Surgery would like for patient to continue TPN -- No chemo until patient improves further Transverse and ascending colon colitis concerning for typhlitis, present remission, resolved - Colonoscopy done, no signs of active inflammation -symptoms resolved -Stool PCR -ve for any pathogens Metastatic ER positive, HER-2 negative breast cancer, present on admission, active -Tumor marker 123, not a huge change from previous one (119) - plan is to do endoscopic US today, take biopsies, waiting for pathology , if tumor stent to be placed, otherwise laproscopy next week - per Dr. Carlin : "She has not seen any chemotherapy of hormonal agents and therefore has a number of options of chemotherapeutic intervention including re-treatment with Taxotere and Cytoxan or single agent Doxil or a combination of AC. I am hopeful that if the current symptoms can be controlled and bypassed, that the patient can resume chemotherapy and respond agai" - Dr. Kam, Dr. Carlin, Dr. Holm on board -- Discussed case with Dr. Carlin, his recs as above -- Dr. Elizalde has been contacted on 12/06 and chemotherapy was held Leukopenia secondary to cytotoxic agent, present on admission, resolved Hypertension, present on admission, active -- amlodipine 10 mg, chlorthalidone 25 mg -- Currently nothing by mouth -- Thought to be due to pain and ongoing perforation, IV when necessary labetalol and enalapril Nutrition -Patient is status post exploratory lap biopsies are done by Dr. Kam -- Patient is status post duodenal stent by Dr. Holm, stent migrated down to jejunum, and caused a perforation - She is receiving tpn via PICC line -- Surgery wants patient to continue TPN CODE STATUS: DNR/DNI Dispo: pending clinical improvement . Pain Evaluation: Adequate Pain Control VTE Prophylaxis: SCDs VTE Mechanical Devices: Intermittant Pneumatic CD Resuscitation Status: DNR/DNI:Do Not Resuscitate/Intubate Time spent 45 min Jodie Woods DO Dec 06, 2016 11:05
--- NOTE | 2016-12-07 02:29 | NUR ---
0230 vasotec held for BP 120/84 Addendum: 12/07/16 at 0640 by BHAVIN DEE RN Sinus tach, no ectopy. Midline incision CDI, no direct observation, sero-sanguinous output noted from PHOEBE drains. Fentanyl epidural at 10/hr, pt reports tolerable 4/10 abdominal pain at this time. Slept poorly last night. Kendall draining clear muna urine. A/Ox3, pleasant, compliant with care. WCTM.
--- NOTE | 2016-12-07 07:10 | PROG NOTE ---
[address] [address] PROGRESS NOTE PATIENT: ASHU OLMEDO : 1950 MR#: [id number] ADMIT: 11/26/2016 JOB ID: [id number] DATE: 12/06/2016 SUBJECTIVE: The patient has taken a turn for the worse today; increased abdominal pain, nausea, vomiting. Imaging has suggested a considerable pneumoperitoneum, and even a little pneumomediastinum. I reviewed the CT with Dr. Loyola, that the precise source for the free air could not really be determined. In talking with Dr. Gusman, the amount of free air present, he thought, would be much more than expected, even in the context of a recent laparoscopy. The stent looked to me like it was in reasonable position within the C-loop of the duodenum. There was fairly diffuse small bowel dilatation, consistent with either ileus or obstruction. I did not see any obvious esophageal injury. The patient was taken to the OR, and I was present for the first hour of the operation, while Dr. Gusman was investigating the region of the stent, which did not appear to be directly causing the problem. As of this dictation, the patient is still in the operating room, and the report is that Dr. Gusman has been able to bypass the obstructed colon segment and resect a section of jejunum that may have been involved in a perforation. Report from the OR staff is the patient is currently doing well. OBJECTIVE: Prior to surgery, she was in considerable pain with obvious abdominal guarding. ASSESSMENT AND RECOMMENDATIONS: A 66-year-old female with metastatic breast cancer involving a considerable amount of the gastrointestinal tract. Duodenal stenting has certainly not fixed the problem, and she is clearly worse since the procedure. It is difficult to determine whether she has had a perforation from the procedure, or whether it was already in evolution even prior to our intervention. At any rate, I am very grateful for Dr. Gusman's efforts to locate the problem and make the appropriate repairs. We will continue to follow.
[2016-12-07] MEDS: Piperacillin-Tazo 3.375 Gm Inj 3.375 GM in Dextrose 5% Minibag Plus 50 ML IV SCH ×2 (07:26→15:46)
[2016-12-07] MEDS: TPN Per Pharmacist XX SCH (08:30)
[2016-12-07] MEDS ORDERED: Glucose 40% Oral Gel 15 Gm Tube PO PRN (09:25)
--- NOTE | 2016-12-07 09:55 | PCM.PNSURG ---
Subjective Date of Service: Dec 07, 2016 Visit Information: Reason for Visit Typhlitis, Gastric Outlet Obstruction Surgery/Surgery Date GASTROJEJUNOSTOMY 12/03/16 Post-Op Day # Date of Admission: Nov 26, 2016 at 16:48 Hospital Day # Subjective: No acute overnight events Pain well controlled with epidural Mildly nauseated this morning, no emesis Denies dyspnea or chest pain Afebrile Persistently tachycardic in 100s-120s, not hypotensive and not requiring pressors Objective Vital Sign- Last 8 Hours Date Time Temp Pulse Resp B/P Pulse Ox O2 Delivery O2 Flow Rate FiO2 12/07/16 08:23 127 12/07/16 08:23 Supplement Oxygen 12/07/16 07:59 36.7 98 16 91/68 97 Nasal Cannula 2.00 12/07/16 03:56 36.7 129 16 114/86 98 Nasal Cannula 2.00 Intake and Output- Last 8 Hour 12/07/16 Cumulative From/Thru 07:00 11/26/16 10:44 - 12/07/16 06:35 Intake Total 1057 ml 31899 ml Output Total 335 ml 11512 ml Balance 722 ml 51963 ml Intake Oral 0 ml 8422 ml IV Total 1057 ml 07293 ml TPN/PPN 2355 ml Output Urine Total 0 ml 7085 ml Stool Total 410 ml Gastric Drainage Total 300 ml 800 ml Emesis 2625 ml Drainage Total 35 ml 45 ml Estimated Blood Loss 10 ml # Voids 45 # Bowel Movements 9 General: Alert, Oriented X3, Cooperative, Mild Distress Neck: Supple Lungs: Normal Air Movement Heart: Other (Tachycardic. ) Abdomen: Other (Midline incision covered by clean dressing. Abdomen mildly distended but soft, appropriately tender. L sided PHOEBE drains x2 with serosanguinous output. ) Extremities: Warm Neuro: Grossly Neurologically Intact Result Diagram: 12/06/16 2147 12/07/16 0455 Assessment & Plan Impression 66F with metastatic breast cancer to the bowel s/p duodenal stent placement on complicated by jejunal perforation now s/p exploratory laparotomy, resection of perforated jejunum with nicole-en-Y reconstruction and ileocolonic anastomosis for bypass of colonic obstruction. Convalescing appropriately in immediate post-operative period. Problems: Plan - Continue epidural as managed by pain service - Continue IV zosyn and fluconazole. CBC pending today. - Strict NPO for now - NGT to low continuous wall suction. Do not manipulate or remove. - Q8 PHOEBE drain care - Ok for DVT prophylaxis - Wean O2 as tolerated. Encouarge IS - Ok to ambulate. Encourage sitting upright in chair during the day. - Q6 blood sugar checks, add correctional insulin if needed. VTE Prophylaxis: SCDs Resuscitation Status: DNR/DNI:Do Not Resuscitate/Intubate Jeff Phillips MD Dec 07, 2016 09:55
--- NOTE | 2016-12-07 10:06 | OP ---
[address] [address] OPERATIVE REPORT PATIENT: ASHU OLMEDO : 1950 MR#: [id number] ADMIT: 11/26/2016 JOB ID: [id number] DATE OF SURGERY: 12/06/2016 PREOPERATIVE DIAGNOSIS(ES): Intestinal perforation from possible duodenal stent migration. POSTOPERATIVE DIAGNOSIS(ES): Small jejunal perforation with stent still in position within the duodenum. PROCEDURE PERFORMED: 1. Laparotomy. 2. Abdominal washout. 3. Resection of perforated jejunum with Grace-en-Y gastrojejunostomy 4. [id number] ileum-descending colon bypass. SURGEON: Malini Gusman M.D. CONCERT PROMOTER: Jeff Phillips M.D. ESTIMATED BLOOD LOSS: 10 mL. COMPLICATIONS: None. CONDITION OF THE PATIENT: Stable. INDICATIONS: The patient is a 66-year-old lady who was diagnosed in 2014 with metastatic breast cancer infiltrating the small bowel requiring bowel resections x4. In fact that was the event which led to the diagnosis. 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 She did relatively well until September of this year when she developed some episodes of cramping which spontaneously resolved. Then most recently, she was admitted with nausea, vomiting on November 26, 2016, and findings were consistent with stricture in between the first and second portions of the duodenum along with strictures in the splenic flexure on colonoscopy with CT evidence of thickening in the proximal colon. After attempted endoscopic diagnosis for tissue had failed, I performed a diagnostic laparoscopy on December 03, 2016, and was able to demonstrate metastatic adenocarcinoma. She then went on to undergo duodenal stent placement on December 04, 2016. She continued to feel worse after the procedure, and when I saw her today, she was significantly distended, prompting me to obtain an abdominal x-ray which eventually led to a CT which showed moderate pneumoperitoneum with predominance in the left upper quadrant near the fourth portion of the duodenum near the distal end of the stent. There was some amount of free fluid in the abdomen. She also had a lot of subcutaneous emphysema and a small amount of pneumomediastinum. We placed an NG tube, started her on broad-spectrum antibiotics and discussed the options and recommended a laparotomy with a potential for removal of the stent along with closure of perforation with basically being prepared for any eventuality. After discussing the risks, benefits, and alternatives, she was brought to the operating room. PROCEDURE DETAILS: She had an epidural catheter placed and underwent smooth induction of general anesthesia, then a right radial arterial catheter was placed and both arms were tucked. She had a Kendall catheter placed. Abdomen was prepped and draped in the usual sterile fashion. Surgical time-out was undertaken using safety checklist, and all were in agreement. I began the operation with an upper midline laparotomy, eventually extending up to the xiphoid and inferiorly below the umbilicus. Upon entering the abdomen, I just encountered some cloudy fluid but no obvious pus or bile. After eviscerating the bowel and examining it, the only significant abnormality I was able to find was emphysema within the jejunal mesentery with some bruising of the jejunum 10-15 cm distal to the ligament of Treitz. I was able to feel the distal end of the stent near the ligament of Treitz where the bowel and the mesentery appeared good and I was also able to feel the proximal end of the stent at the top of the second portion of the duodenum where also the bowel appeared good. I was unable to visualize the entire length of the duodenum as her tumor involving the hepatic flexure and the transverse colon was densely adherent to the duodenum, stuck to the retroperitoneum on the right lateral aspect. After thorough exploration, the best explanation I could come up with was a small perforation of this segment of jejunum on the mesenteric aspect during the procedure which had an exaggerated impact in her due to her distal small bowel obstruction from the colonic tumors. At that point, I proceeded to resect 10 cm of this perforated jejunal segment, and after I detached the specimen, I was able to find a small perforation on the mesenteric aspect. I then decided to perform a Grace-en-Y gastrojejunostomy given we have already divided the jejunum and I proceeded to do a two-layer jejunojejunostomy side to side with the outer layer of interrupted 3-0 silks and inner layer of interrupted 3-0 Vicryl in a standard fashion. I then performed the dlka-om-yois gastrojejunostomy in an antecolic fashion also with the outer layer of 3-0 silk and inner layer of 3-0 Vicryl in a standard fashion. The area did not have much contamination and we irrigated this area thoroughly and suctioned free and then proceeded to mobilize the lower descending colon which was relatively free of tumor by incising along the white line of Toldt and chose the distal ileum before the segment which entered the area of the tumor in the right side of the abdomen and performed another ileo descending colostomy anastomosis, again hand-sewn using two layers, outer layer of interrupted 3-0 silks and inner layer of interrupted 3-0 Vicryl sutures. Again irrigated the abdomen thoroughly and removed all fluid and left two 19 JPs, one in the pelvis and one in the left upper quadrant, and after ensuring the instrument counts to be correct, proceeded to close the fascia with running 0 PDS suture. The patient tolerated the closure well without any increase in her respiratory difficulty. Then we irrigated the subcutaneous tissue and closed the skin with alem. Sterile dressing was applied. The patient was recovered from anesthesia and was taken to the recovery room in a stable condition. RIGO
--- NOTE | 2016-12-07 11:20 | NUR ---
NUTRITION FOLLOW-UP: ASSESS: 66 YO female admitted with nausea, vomiting and recurrent mild abdominal pain. Due to pt severe nausea, pt had been 4 days without much nutrition prior to admit with additional 9 days during admission. Pt s/p duodenal stent procedure on 12/04. TPN was initiated 12/03 and is slowly being advanced to goal rate as pt is able to tolerate. On 12/06, pt began experiencing increased abdomen pain and distention. NGT was placed and pt returned to the OR and is now now s/p exploratory laparotomy, resection of perforated jejunum with nicole-en-Y reconstruction and ileocolonic anastomosis for bypass of colonic obstruction. PMHx: HTN, migraines, metastatic ER+, HER-2 negative breast cancer diagnosed in 2014. DIET: NPO. NUTRITION SUPPORT: TPN of 200 g dextrose, 70 g Amino acids and 35 g lipids to provide 1330 kcals and 70 g protein LABS: Reviewed. K 5.4, Bun 33, Glu 164, Ca 8.0, T.bili 1.8, AST 63, ALT 53, Alb 2.5 MEDICATIONS: Reviewed. GI symptoms / stool: BM x 9 (12/02)- NGT in place ANTHROPOMETRICS: Current Wt: 71.1 kg., BMI 23.8kg/m2 Admit weight: 72.27 IBW: 63.6 kg ESTIMATED NEEDS (CANCER): Calories: 2782-2355 kcal (25 - 30 kcal / kg BW) Protein: 70-110 g protein (1.0 - 1.5 g / kg W) Fluid: Approx. 1808-4230 mL (25-30 mL / kg BW) NUTRITION DIAGNOSIS: 1.) Inadequate oral intake related to altered GI function as evidenced by limited po intake x 13 days (counting 4 days prior to admit) and need for TPN. --PERSISTS. INTERVENTION: 1) Recommend increasing TPN to goal of 300 g dextrose, 100 g Amino acids and 50 g lipids to provide 1920 kcals and 100 g protein per day. (100% estimated needs) 2.) Adjust goal TPN as needed pending po intake and labs 3.) If pt's AST, ALT and Alk Phos continue to trend up will consider running goal TPN x14 hrs. Dex load would be 5mg/kg/min. MONITOR/EVALUATE: TPN tolerance, GI, wt, labs, GI/nutrition status. Follow per high nutrition risk guidelines.
--- NOTE | 2016-12-07 11:57 | PROG NOTE ---
[address] [address] PROGRESS NOTE PATIENT: ASHU OLMEDO : 1950 MR#: [id number] ADMIT: 11/26/2016 JOB ID: [id number] DATE: 12/07/2016 SUBJECTIVE: This is postop day one for a 66-year-old female, status post exploratory laparotomy, with a thoracic epidural in place running bupivacaine 0.125% with 2 mcg/mL of fentanyl at 10 mL an hour. She has a 3 mL demand dose that she can utilize every 20 minutes, max to an hour. On a visual analog scale she complains of 1/10 generalized abdominal pain. She has not eaten anything, and she has an NG tube in place. She has sat up and not ambulated and has no current complaints other than feeling tired. OBJECTIVE: Vitals were normal, although she is much more hypotensive compared to her previous blood pressure this hospitalization. Her antihypertensive medications have been held which is a good thing. At home, she said her typical blood pressures were about 130/70 and currently, they are running around systolics of 100s to 90s. She has been afebrile. No labs drawn today. Her epidural site is clean, dry and intact, and she has no focal neurological deficits. ASSESSMENT AND PLAN: The patient is making excellent recovery from a major operation. It is my hope is to continue this epidural for another three or four to five days based upon her hospital course. I reduced the rate from 10 mL an hour to 8 mL an hour in hopes that her blood pressure might come up a little bit and she would be less dizzy when sitting. I informed her that she has her demand dose button that she can utilize. I will continue to follow.
[2016-12-07 12:02] LABS: BASOPHILS % (AUTO) 0.2 % (0-3); Platelet Count 325 bil/L (150-400)
--- NOTE | 2016-12-07 12:10 | PROG NOTE ---
[address] [address] PROGRESS NOTE PATIENT: ASHU OLMEDO : 1950 MR#: [id number] ADMIT: 11/26/2016 JOB ID: [id number] DATE: SUBJECTIVE: The patient made it through a lengthy surgery. I have since spoken with Dr. Gusman and he performed a gastrojejunostomy bypass after resecting a small section of proximal jejunum that appeared abnormal during the operation. PROCEDURE INFORMATION: After the piece had been resected on the mesenteric side, he could express some bubbles indicative of a very small leak. He then performed an ileo descending colonic bypass to bypass the obstructed colonic section. Overall the patient feels much improved. She however has a moderate persisting tachycardia. She is on broad-spectrum antibiotic. OBJECTIVE: She was conversational and seemed in better spirits. LABORATORY DATA: Bilirubin 1.8, AST 63, ALT 53, alk phos 97. Creatinine 0.73, potassium 5.4, sodium 141, chloride 107, bicarb 21, BUN 33, calcium 8.0. ASSESSMENT AND PLAN: A 66-year-old female with metastatic breast cancer and extensive GI involvement. Subsequent to duodenal stent deployment she did not improve as we expected, in fact making clinically worse. Imaging demonstrated a perforated viscus. It was initially everyone's concern that the duodenal stent had perforated the duodenum from a migration event. However surgical data and review demonstrated the stent to be in a reasonable location within the duodenum. The segment of jejunum that appeared to be responsible for the free air was about 10-15 cm distal to the ligament of Treitz, and there definitely would have been an 0.035 floppy tip guidewire down that far, but other than that it is hard to envision any other hardware in that region at the time of the endoscopic procedure. I suspect the more distal obstructive process to have precipitated the perforation, quite possibly as a result of wire induced mucosal trauma. At any rate this section of jejunum was successfully removed. The patient was successfully bypassed but will need to be closely monitored moving forward, especially with her present tachycardia. GI will follow peripherally. I will be signing out to Dr. Alcocer, who will be covering the gastroenterology service through the weekend.
[2016-12-07 12:31] LABS: EOSINOPHILS % (AUTO) 0.1 % (0-5); MONOCYTES % (AUTO) 10.3 % (4-12); Mean Corpuscular Hemoglobin 34.4 pg (27.0-35.0); Mean Corpuscular Volume 101.1 fL (81-100); NEUTROPHILS % (AUTO) 80.3 % (40-74)
[2016-12-07] MEDS: fentaNYL 2 mCg/mL-Bupiv 0.125% 100 ML in IV Premix 1 EACH EPIDURAL SCH (13:00)
[2016-12-07] MEDS: Insulin LISPRO 300 Unit/3 mL Inj SUBQ SCH ×3 (13:06→22:00)
--- NOTE | 2016-12-07 13:49 | PCM.PHAPRO ---
Progress TPN Patient ID: 66-year-old female with stage IV breast CA with GI mets resulting in multiple complications including: Perforated bowel, acute thought to be due to duodenal stent migration to jejunum causing a perf in jejunum Upper GI partial obstruction. active Transverse and ascending colon colitis concerning for typhlitis, present remission, resolved Leukopenia secondary to cytotoxic agent, present on admission, resolved I. Fluids/HD Daily weights are needed. Current TPN delivering 1000mL/day which may be inadequate. Though I/O over past few days look positive, she is loosing fluids through GI drainage and vomiting. BP/HR trend might suggest progressive hypovolemia p/ Increase water/sodium in tpn II. Chem Hyperkalemia today noted, likely artifact. Will not adjust K in mix. Elevation of transams and total bili noted. In absence of alk phos elevation this is unlikely related to tpn. p/ follow III. Glucose Have remained < 180, but arguably should be kept below 150-160 post bowel surgery p/ Initiate insulin infusion IV. Macros Increased to goal today PARENTERAL NUTRITION ORDERS 5 07-Dec-16 Standard Hang Time: 2100 Substrates Total kcal: 1920 AMINO ACIDS 100 g DEXTROSE 300 g Total Volume (mL): 2000 LIPIDS 50 g Sterile Water for Injection UD mL To Infuse Over (hrs): 24 Total Volume 2000 mL At at a rate of (mL/hr): 83 Additives Sodium Chloride 80 mEq "typical" daily requirements Sodium Acetate 40 mEq Sodium 50-120mEq Potassium Chloride 30 mEq Potassium 60-120mEq Potassium Phosphate 20 mEq Phosphate 20-40mEq Calcium Gluconate 9.3 mEq Magnesium 8-32mEq Magnesium Sulfate 8 mEq Calcium 9-22mEq Acetate* 80-120mEq Chloride* 80-120mEq Regular Insulin units *Depending on acid-base status Famotidine 40 mg Multivitamins 1 std dose Insulin Regimen Trace Elements 1 std dose none Thiamine 100 mg Regular Low Intensity Subcut Folic Acid 1 mg Regular Medium Intensity Subcut Ascorbic Acid mg Regular High Intensity Subcut Regular Insulin Infusion Other: Special Instructions: To be infused via central line only. For delay or inturruption of TPN contact the pharmacist for alternative replacement solution. Kaleb Yanes Pharm D Dec 07, 2016 13:49 PARENTERAL NUTRITION ORDERS 5 07-Dec-16 Standard Hang Time: 2100 Substrates Total kcal: 1920 AMINO ACIDS 100 g DEXTROSE 300 g Total Volume (mL): 2000 LIPIDS 50 g Sterile Water for Injection UD mL To Infuse Over (hrs): 24 Total Volume 2000 mL At at a rate of (mL/hr): 83 Additives Sodium Chloride 80 mEq "typical" daily requirements Sodium Acetate 40 mEq Sodium 50-120mEq Potassium Chloride 30 mEq Potassium 60-120mEq Potassium Phosphate 20 mEq Phosphate 20-40mEq Calcium Gluconate 9.3 mEq Magnesium 8-32mEq Magnesium Sulfate 8 mEq Calcium 9-22mEq Acetate* 80-120mEq Chloride* 80-120mEq Regular Insulin units *Depending on acid-base status Famotidine 40 mg Multivitamins 1 std dose Insulin Regimen Trace Elements 1 std dose none Thiamine 100 mg Regular Low Intensity Subcut Folic Acid 1 mg Regular Medium Intensity Subcut Ascorbic Acid mg Regular High Intensity Subcut Regular Insulin Infusion Other: Special Instructions: To be infused via central line only. For delay or inturruption of TPN contact the pharmacist for alternative replacement solution. Kaleb Yanes Pharm D Dec 07, 2016 13:49
--- NOTE | 2016-12-07 15:33 | PCM.PNMED ---
Subjective Date of Service Dec 07, 2016 Subjective Patient underwent nicole-en-Y gastric bypass last night performed by Dr. Gusman. The surgery included a gastrojejunostomy bypass after resecting a small section of proximal jejunum that appeared abnormal during the operation. Patient tolerated the procedure well, but was moved to [facility] for post operative care. Patient had persistent tachycardia, although patient remained asymptomatic. Patient has been placed on broad spectrum antibiotics. No further events overnight. Patient seen and examined resting in bed. She states that she is very tired and has a hard time getting to sleep. Patient c/o nausea. She denies any CP, SOB, or ABD pain other than incision pain from surgery. ROS reviewed and otherwise negative at this time. Exam Vital Signs Vital Sign - Last Date Time Temp Pulse Resp B/P Pulse Ox O2 Delivery O2 Flow Rate FiO2 12/07/16 12:00 36.7 124 16 113/80 98 Nasal Cannula 2.00 12/03/16 14:15 100 Intake and Output 12/06/16 12/06/16 12/07/16 Cumulative From/Thru 15:00 23:00 07:00 11/26/16 10:44 - 12/07/16 06:35 Intake Total 4100 ml 1057 ml 00480 ml Output Total 1210 ml 335 ml 67574 ml Balance 2890 ml 722 ml 07141 ml Intake Oral 0 ml 0 ml 8422 ml IV Total 4100 ml 1057 ml 96742 ml TPN/PPN 2355 ml Output Urine Total 1200 ml 0 ml 7085 ml Stool Total 410 ml Gastric Drainage Total 300 ml 800 ml Emesis 2625 ml Drainage Total 35 ml 45 ml Estimated Blood Loss 10 ml 10 ml # Voids 45 # Bowel Movements 0 9 Exam Constitutional: Awake, Tired, Alert. In no acute Distress. Head: Normocephalic and atraumatic. Eyes: EOMI, no scleral icterus Heart: tachycardic with regular rhythm. No peripheral edema. Lungs: Clear to auscultation, no wheeze, rales, or rhonchi. Subcutaneous crepitus on palpation. ABD: Surgical site covered in wrapping with no apparent blood or drainage through the bandages. 2 PHOEBE drains present going into surgical site with serosanguinous fluid actively draining. ABD is soft. mildly tender to palpation. No signs of surrounding erythema. Musculoskeletal: Patient moves all four extremities appropriately, Good muscle tone. Neuro: CN II-XII intact. No focal deficits. Skin: Warm, Dry Psych: Tired appearing, but appropriate mood and affect. IVs and Medications IV Fluids TPN Medications Reviewed: Medications were reviewed in detail Medications High Risk Medications: TPN Zosyn Fentanyl Lab and Diagnostics Item Value Date Time HIV (1&2) Antibody Rapid Negative 12/07/16 0044 Red Blood Count 3.55 mil/mm3 L 12/07/16 1155 Mean Corpuscular Volume 101.1 fL H 12/07/16 1155 Mean Corpuscular Hemoglobin 34.4 pg 12/07/16 1155 Mean Corpuscular Hemoglobin Concent 34.0 % 12/07/16 115 Red Cell Distribution Width 14.5 % 12/07/16 115 Neutrophils (%) (Auto) 80.3 % H 12/07/16 1155 Lymphocytes (%) (Auto) 6.4 % L 12/07/16 115 Monocytes (%) (Auto) 10.3 % 12/07/16 1155 Eosinophils (%) (Auto) 0.1 % 12/07/16 1155 Basophils (%) (Auto) 0.2 % 12/07/16 1155 Estimat Glomerular Filtration Rate 114 mL/min 12/07/16 0455 Calcium Level 8.0 mg/dL L 12/07/16 0455 Total Bilirubin 1.8 mg/dL H 12/07/16 0455 Aspartate Amino Transf (AST/SGOT) 63 U/L H 12/07/16 0455 Alanine Aminotransferase (ALT/SGPT) 53 U/L H 12/07/16 0455 Alkaline Phosphatase 97 U/L 12/07/16 0455 Total Protein 4.6 g/dL L 12/07/16 0455 Albumin 2.5 g/dL L 12/07/16 0455 Result Diagram: 12/07/16 1155 12/07/16 045 Microbiology Nasopharyngeal PCR negative Blood Cultures Negative ABD culture no organisms seen. X-Rays, CTs and MRIs CT ABDOMEN AND PELVIS WITH CONTRAST IMPRESSION: Severe ascending and transverse colonic wall thickening in keeping with an infectious or inflammatory (statistically less likely ischemic) colitis. Of note the appendix is not discretely identified therefore cannot entirely exclude acute appendicitis although probably less likely given the long segment involvement. Nonetheless, recommend clinical and laboratory correlation. Nonobstructive right renal calculus. L3 osseous metastasis as before, with unchanged appearance Dictated by: Benny Telles M.D. on 11/26/2016 at 14:18 Assessment & Plan Vernell Bailon is a 66-year-old woman with past medical history significant for ER positive HER-2 negative metastatic breast cancer which initially presented as small bowel obstruction secondary to diffuse small bowel infiltration was initially diagnosed in late 2013 who presents to the [facility] emergency department today due to nausea and vomiting and recurrent mild abdominal pain. Patient underwent resection of perforated bowel in a nicole-en-Y reconstruction performed by Dr. Gusman on the soap grinder of 12/07. Perforated bowel, acute thought to be due to duodenal stent migration to jejunum causing a perf in jejunum, not present on admission, Active -Post surgery nicole-en-Y procedure day (0) performed by Dr. Gusman. Dr. Alcocer ( GI) is following over the weekend of 12/07. -Patient NPO until cleared by GI to advance -Fentanyl IV for pain control -Patient is given morphine pump for pain control - Empiric Zosyn started 12/06 for infection control Upper GI partial obstruction. Ongoing - Surgery would like for patient to continue TPN Metastatic ER positive, HER-2 negative breast cancer, present on admission, active -Tumor marker 123, not a huge change from previous one (119) - No chemo until patient improves further, as per Dr. Carlin -Discussed case with Dr. Carlin, his recs as above -Dr. Elizalde is following Transverse and ascending colon colitis concerning for typhlitis, present remission, resolved - Colonoscopy done, no signs of active inflammation -symptoms resolved -Stool PCR -ve for any pathogens Leukopenia secondary to cytotoxic agent, present on admission, resolved Hypertension, present on admission, active - amlodipine 10 mg, chlorthalidone 25 mg - Currently NPO - Thought to be due to pain and ongoing perforation, IV when necessary labetalol and enalapril Nutrition -Patient is status post exploratory lap biopsies are done by Dr. Gusman - Post op day (0) for nicole-en-Y reconstruction - She is receiving tpn via PICC line -continue TPN as above -Empiric Fluconazole started 12/06 for antifungal -Insulin gtt -Lantus 10 HS Maintenance: Heparin SubQ for anticoagulation Benadryl IV for sleep aid Zofran IV for nausea CODE STATUS: DNR/DNI Disposition: This patient underwent open laparotomy soap grinder on 12/07 with a nicole-en-Y reconstruction. Given this patient will be recovering from the surgery in the hopes for systemic chemotherapy from Dr. Carlin, the length of stay is uncertain at this time. Pain Evaluation: Adequate Pain Control VTE Prophylaxis: Sub-Q Heparin (Unfractionated), SCDs VTE Mechanical Devices: Intermittant Pneumatic CD Resuscitation Status: DNR/DNI:Do Not Resuscitate/Intubate Attending Statement The patient was seen and examined together with Dr. Yepez on 12/07/16 and I have added additional information to the note above. Leno Yepez DO Dec 07, 2016 15:33 Juanita Muro DO Dec 08, 2016 13:10
[2016-12-07] MEDS: Fluconazole Inj 400 MG in IV Premix 1 EACH IV SCH (15:47)
--- NOTE | 2016-12-07 17:48 | NUR ---
Pain/Epidural/Activity Patient a/o x 3, c/o upper shoulder and back pain, ice applied prn. Patient denied abd pain this a.m. SBP 90's, Anesth MD at bedside and epidural gtt decreased to 8 ml/hr. Patient c/o increased abd pain this afternoon, SBP 150's Epi gtt increased back to 10 ml/hr. Midline incision drsg c/d/i. PHOEBE x 2 putting out serosang drainage. NGT CLS putting out green liq. Kendall patent dark muna uop. Patient dangled x 2 and was able to sat at bedside with sba, nadia fair. See vitals, tele ST 110-120's.
--- NOTE | 2016-12-07 20:49 | PROG NOTE ---
[address] [address] PROGRESS NOTE PATIENT: ASHU OLMEDO : 1950 MR#: [id number] ADMIT: 11/26/2016 JOB ID: [id number] DATE: 12/07/2016 INPATIENT MEDICAL ONCOLOGY PROGRESS REPORT: HISTORY OF PRESENT ILLNESS: Yesterday the patient was found to have free air due to perforated viscus on x-ray and underwent emergent operation by Dr. Gusman. There was a tiny perforation about 10-15 cm distal to the ligament of Treitz and that part of the jejunum was resected with a jejunojejunostomy. Also a [id number]-smdy ileo-descending colon anastomosis was performed to bypass malignant stricture in splenic flexure. SUBJECTIVE: Today she still has quite a bit of abdominal pain, and is profoundly weak. OBJECTIVE: Abdomen is tender, but to be expected. Abdomen is not distended. She is tachycardic, but afebrile. Blood pressure is normal and oxygenation is normal. IMPRESSION AND RECOMMENDATIONS: Very pleasant woman with de soumya presentation of metastatic invasive lobular carcinoma of breast, with GI involvement from the outset. Her condition remains very critical. Yesterday we were able to stop and avoid chemotherapy when she was having abdominal emergency, and now will wait for recovery. I am a little concerned about significant abdominal pain and tenderness and her tachycardia. Dr. Gusman and his colleagues are closely following. I will return next week for followup, as Dr. Carlin will be out of town throughout next week. I highly appreciate Dr. Gusman's prompt assistance and surgery that was done yesterday.7
[2016-12-07] MEDS: Total Parenteral Nutrition 1 BAG IV SCH (21:00)
[2016-12-07] MEDS: Insulin GLARgine 100 Unit/mL Syringe SUBQ SCH (22:22)
[2016-12-08] VITALS (14 sets, daily range): BP systolic 99–179; BP diastolic 67–105; PULSE 93–120; RESP 16–20; O2SAT 95–98
[2016-12-08] MEDS: Piperacillin-Tazo 3.375 Gm Inj 3.375 GM in Dextrose 5% Minibag Plus 50 ML IV SCH ×3 (00:17→15:30)
[2016-12-08] MEDS: Sodium Chloride LOK Flush 10 mL Syringe IVFLUSH SCH ×3 (00:18→15:30)
[2016-12-08] MEDS: Heparin 5,000 Unit/mL Inj SUBQ SCH ×3 (00:20→15:30)
[2016-12-08] MEDS: fentaNYL 2 mCg/mL-Bupiv 0.125% 100 ML in IV Premix 1 EACH EPIDURAL SCH ×3 (03:34→19:06)
[2016-12-08 04:28] LABS: Mean Corpuscular Hemoglobin 33.9 pg (27.0-35.0); Mean Corpuscular Volume 100.9 fL (81-100)
[2016-12-08 05:02] LABS: Magnesium 2.3 mg/dL (1.6-2.6)
[2016-12-08] MEDS ORDERED: Labetalol 5 mg/mL 20 mL Inj IVPUSH PRN (07:10)
[2016-12-08] MEDS: TPN Per Pharmacist XX SCH (07:30)
--- NOTE | 2016-12-08 07:50 | PROG NOTE ---
[address] [address] PROGRESS NOTE PATIENT: ASHU OLMEDO : 1950 MR#: [id number] ADMIT: 11/26/2016 JOB ID: [id number] DATE: 12/08/2016 SUBJECTIVE: A 66-year-old female, status post exploratory laparotomy with essentially a Grace-en-Y. Currently with a thoracic epidural in place running bupivacaine 0.125% with 2 mcg/mL of fentanyl at a rate of 8 mL an hour. Currently on a visual analog scale, she complains of mild abdominal tenderness, although she is quite happy and says the number is somewhere around 2-4/10. She did mention that she stood at bedside yesterday, but has not ambulated any significant distance. She is n.p.o. and currently has an NG tube in place. OBJECTIVE: The patient has been afebrile and her blood pressure has returned to baseline. Her white count today was 11.2, and platelets 330. Her AST, ALT and total bilirubin are all elevated. Her epidural site was clean, dry, and intact and she has no focal neurological deficits. She is also on 5000 units heparin subcutaneous daily. ASSESSMENT AND PLAN: This patient has adequate pain control following a lengthy and rather large operation. We will continue to follow and not change her current regimen at this time.
--- NOTE | 2016-12-08 07:51 | NUR ---
Pain/HTN/BC/Incisions/HR Overnight pt stated abdominal pain tolerable at 4/10, epidural infusion continues, pt states good sensation in all extremities, CERON, occasionally drowsy after requesting Benadryl to help her sleep. PORTFOLIO ADMINISTRATOR used to monitor sats. DBP 100s, Vasotec given per parameters and lowered it to 90s, MD notified. BC drawn per orders between TPN bags. ABD dressing C/D/I, JPs patent and draining serosang fluid. HR continues to be elevated, mostly 110s, no symptoms reported with this.
[2016-12-08] MEDS: D5 0.45% NaCl + KCl 20 mEq/L 1,000 ML IV SCH ×2 (08:09→17:47)
--- NOTE | 2016-12-08 09:45 | DRSVH ---
PROCEDURE: CT ABDOMEN AND PELVIS WITH CONTRAST ([id number]) INDICATIONS: Worsening LFTs Postop. History of jejunal perforation, and surgery. TECHNIQUE: After the administration of intravenous contrast, 5 mm thick sections acquired from the diaphragm to the symphysis. 5 mm coronal and sagittal reformats were acquired. For radiation dose reduction, the following was used: automated exposure control, adjustment of mA and/or kV according to patient siz e. COMPARISON: [facility], CT, CT CHEST ABD PELVIS WO CON, 12/06/2016, 15:15. [facility], NM, NM BONE SCAN WHOLE BODY, 04/16/2016, 13:39. [facility], CT, CT ABD PELVIS W CON, 12/06/2016, 11:41. FINDINGS: Image quality: Excellent. ABDOMEN: Lung bases: Small bilateral pleural effusions with adjacent atelectasis. Solid organs: There is intrahepatic and extra hepatic bile duct dilatation, which has progressed sinc e the prior study dated 12/06/16 in particular within the liver. Gallbladder is distended. There is pe richolecystic fluid/ascites although unclear of the etiology. Spleen is grossly unremarkable Gallbladder distended although no definite radiopaque gallstones are seen. Biliary pancreas unremark able. No adrenal nodules. Kidneys demonstrate normal size and enhancement, without hydronephrosis. Peritoneum and bowel: A duodenal stent is again noted and grossly unchanged. There are postsurgical changes, with interval development of diffuse jejunal inflammation presumably postoperative in nature . No abscess is seen. No bowel obstruction identified. There is scattered ascites. There are scattere d bubbles of free air as before presumably in part due to recent surgery. Upper and lower abdominal s urgical drains have been placed Nodes and vessels: No retroperitoneal or mesenteric adenopathy by size criteria. Aorta and inferior vena cava are normal in size. Miscellaneous: No ventral hernias. There is prominent abdominal wall subcutaneous soft tissue gas a s before. PELVIS: Genitourinary: The bladder is decompressed and there is a Kendall catheter Miscellaneous: No inguinal hernias or adenopathy. Bones: Sclerotic osseous metastases are noted. IMPRESSION: Status post placement of upper and lower surgical drains. Proximal small bowel/jejunal wall thickening without evidence of obstruction. This could be postsurgi rocky in nature, recommend clinical correlation. Mildly increased intrahepatic bile ductal dilatation. Distended gallbladder appears grossly unchanged since prior study. Pericholecystic fluid is present as before, of unknown etiology. Recommend clinic al correlation and with LFTs. Redemonstration of prominent abdominal wall subcutaneous soft tissue gas. Small bilateral pleural effusions. Findings were discussed with Dr. Gusman approximately 0930 hours 12/08/16. Additional chronic and incidental findings. Dictated by: Benny Telles M.D. on 12/08/2016 at 9:23 Approved by: Benny Telles M.D. on 12/08/2016 at 9:42
[2016-12-08] MEDS: Insulin LISPRO 300 Unit/3 mL Inj SUBQ SCH ×4 (11:13→22:00)
--- NOTE | 2016-12-08 11:14 | PCM.PNSURG ---
Subjective Date of Service: Dec 08, 2016 Visit Information: Reason for Visit Typhlitis, Gastric Outlet Obstruction Surgery/Surgery Date GASTROJEJUNOSTOMY 12/03/16 Post-Op Day # Date of Admission: Nov 26, 2016 at 16:48 Hospital Day # Subjective: No acute overnight events She states she feels well overall Pain is controlled with PCEA Her nausea and singultus have improved She has been able to sit up out of bed Denies chest pain or shortness of breath No flatus as of yet Afebrile Objective Vital Sign- Last 8 Hours Date Time Temp Pulse Resp B/P Pulse Ox O2 Delivery O2 Flow Rate FiO2 12/08/16 08:40 96 12/08/16 08:23 93 99/67 12/08/16 07:47 36.8 120 18 179/100 97 Room Air 12/08/16 05:50 114 12/08/16 03:25 20 98 12/08/16 03:19 37.1 119 20 155/96 98 Nasal Cannula 1.00 Intake and Output- Last 8 Hour 12/08/16 Cumulative From/Thru 07:00 11/26/16 10:44 - 12/08/16 05:26 Intake Total 0 ml 51913 ml Output Total 685 ml 25527 ml Balance -685 ml 52125 ml Intake Oral 0 ml 8422 ml IV Total 79503 ml TPN/PPN 2355 ml Output Urine Total 500 ml 8085 ml Stool Total 410 ml Gastric Drainage Total 1200 ml Emesis 2625 ml Drainage Total 185 ml 385 ml Estimated Blood Loss 10 ml # Voids 45 # Bowel Movements 9 General: Alert, Oriented X3, Cooperative, No Acute Distress Neck: Supple Lungs: Normal Air Movement Heart: Other (Tachycardic) Abdomen: Other (Abdomen appropriately tender but soft and nondistended. Midline incision c/d/i with alem in place. PHOEBE drains x2 with serous appearing fluid, nonbloody, not frankly bilious. NGT with bilious output. ) Extremities: Warm Neuro: Grossly Neurologically Intact Catheters: Urethral [address] Way Kendall Result Diagram: 12/08/1641112/08/16411 Assessment & Plan Impression 66F with metastatic breast cancer to the bowel resulting in gastric outlet of obstruction necessitating duodenal stent placement on 12/04 complicated by jejunal perforation. She is now POD#2 s/p exploratory laparotomy, resection of perforated jejunum with nicole-en-Y reconstruction, and ileocolonic anastamosis for colonic bypass. She is convalescing appropriately from her surgery but has increasingly elevated LFTs since her operation. Problems: Plan 1. In regards to the patient's rising liver function tests, a CT A/P obtained this morning has revealed worsened biliary dilation and a distended gallbladder. Otherwise, no acute findings. She will likely need biliary decompression. The options for this will be explored today but I think discussing the case with interventional radiology is a good place to start. - Her TPN should be held in the event that this is the source of her liver dysfunction - She should remain NPO for the time being 2. In regards to her jejunal perforation and nicole-en-Y reconstruction, there does not appear to be any acute surgical complication at this time - Remain NPO - NGT to LCWS. Do not manipulate, replace, or remove unless advised by general surgery - Continue antibiosis with fluconazole and zosyn - PHOEBE drain care Q8 hours 3. Pain management with PCEA as managed by anesthesis - OK for IV tylenol as an adjunct - Kendall to remain for time being with epidural in place 4. Appreciate ongoing care from primary medicine team - Please do not hesitate to call with questions or concerns VTE Prophylaxis: Sub-Q Heparin (Unfractionated), SCDs Resuscitation Status: DNR/DNI:Do Not Resuscitate/Intubate Jeff Phillips MD Dec 08, 2016 11:14
--- NOTE | 2016-12-08 11:52 | NUR ---
NUTRITION FOLLOW-UP: ASSESS: 66 YO female admitted with nausea, vomiting and recurrent mild abdominal pain. Due to severe nausea, pt had been 4 days without much nutrition prior to admit with additional 12 days during this admission. She is s/p duodenal stent procedure on 12/04. TPN was initiated 12/03 and was slowly advanced to goal rate. On 12/06, pt began experiencing increased abdomen pain and distention. NGT was placed and pt returned to the OR and is now now s/p exploratory laparotomy, resection of perforated jejunum with nicole-en-Y reconstruction and ileocolonic anastomosis for bypass of colonic obstruction. Overnight, her labs revealing significantly elevated LFT's. CT A/P obtained this morning revealing worsened biliary dilation and a distended gallbladder. She will likely need biliary decompression., per surgery. Surgery also holding her TPN in the event this is the source of her liver dysfunction. She will be NPO. PMHx: HTN, migraines, metastatic ER+, HER-2 negative breast cancer diagnosed in 2014. DIET: NPO. NUTRITION SUPPORT ON HOLD: TPN macronutrient: goal 300 g dextrose, 100 g Amino acids and 50 g lipids to provide 1920 kcals and 100 g protein per day. (100% estimated needs). LABS: Reviewed. Chloride 110, BUN 35, Cr 0.55, Glu 147, Ca 7.9, total Bili 3.8, AST 227, ALT 222, Alk Phos 289, Alb 2.6. MEDICATIONS: Reviewed. Insulin. GI symptoms / stool: No recent stool documented. ANTHROPOMETRICS: Current Wt: 74.5 kg., BMI 24.0 kg/m2 Admit weight: 72.27 IBW: 63.6 kg ESTIMATED NEEDS (CANCER): Calories: 3364-1698 kcal (25 - 30 kcal / kg BW) Protein: 70-110 g protein (1.0 - 1.5 g / kg W) Fluid: Approx. 0119-1981 mL (25-30 mL / kg BW) NUTRITION DIAGNOSIS: 1) Inadequate oral intake related to altered GI function as evidenced by limited PO intake x 16 days (counting 4 days prior to admit) and need for TPN which is on hold - PERSISTS. INTERVENTION: 1) Patient's nutritional status significantly impaired at this point. Once it is determined that TPN is not the source of her liver dysfunction, recommend restart TPN at low macronutrient load until labs improved. Also recommend consideration of running TPN over 14 hours. Dex load would be 5 mg/kg/min. 2) Recommend advance diet in timely and appropriate manner. MONITOR/EVALUATE: TPN restart / tolerance, GI, wt, labs, GI/nutrition status. Follow per high nutrition risk guidelines.
--- NOTE | 2016-12-08 13:12 | PCM.PNSURG ---
Subjective Date of Service: Dec 08, 2016 Date of Service: Dec 08, 2016 Visit Information: Subjective: No acute events overnight. Noted increase transaminitis during past few days. Now off TPN. CT abdomen pelvis also noted mild increase in intrahepatic bile duct dilation with unchanged distended gallbladder. No bm. Postop General: No Complaints Objective Vital Sign- Last 8 Hours Date Time Temp Pulse Resp B/P Pulse Ox O2 Delivery O2 Flow Rate FiO2 12/08/16 12:08 37.1 102 18 152/92 98 Room Air 12/08/16 08:40 96 12/08/16 08:23 93 99/67 12/08/16 07:47 36.8 120 18 179/100 97 Room Air 12/08/16 05:50 114 Intake and Output- Last 8 Hour 12/08/16 Cumulative From/Thru 07:00 11/26/16 10:44 - 12/08/16 05:26 Intake Total 0 ml 89627 ml Output Total 685 ml 30701 ml Balance -685 ml 91294 ml Intake Oral 0 ml 8422 ml IV Total 57422 ml TPN/PPN 2355 ml Output Urine Total 500 ml 8085 ml Stool Total 410 ml Gastric Drainage Total 1200 ml Emesis 2625 ml Drainage Total 185 ml 385 ml Estimated Blood Loss 10 ml # Voids 45 # Bowel Movements 9 General: Oriented X3 Neck: Supple Lungs: Clear to Auscultation Heart: Exam Unremarkable Abdomen: Benign, Soft, Appropriately tender, Non-distended, Other (hypoactive bs) Extremities: Distal Pulses Palpable Result Diagram: 12/08/16 0412 12/08/16 0412 Assessment & Plan Impression 66-year-old woman with past medical history significant for ER positive HER-2 negative metastatic breast cancer which initially presented as small bowel obstruction secondary to diffuse small bowel infiltration was initially diagnosed in late 2013 was admitted on 11/26/2016 for nausea and vomiting and recurrent mild abdominal pain. s/p egd 11/27/2016- Mild duodenal obstructive pathology-biopsied Small hiatal hernia. Ulcerative esophagitis. s/p flex sig tattoo placement 11/29/2016- Multifocal splenic flexure stricturing. Incomplete colonoscopy s/p eus 11/29/2016- Incomplete EUS exam as we were unable to advance the scope beyond the distal duodenal bulb secondary to stricturing. 12/03/2016- s/p Diagnostic laparoscopy with lysis of adhesions and biopsies. 12/04/2016- EGD- Duodenum: placed a 9 cm uncovered duodenal WallFlex stent across the obstructed segment. Positioning appeared appropriate fluoroscopically and endoscopically. s/p 12/07/2016- Pt underwent Ex Laparotomy, Resection of perforated jejunum with Grace-en-Y gastrojejunostomy, Aodr-dz-yibl ileum-descending colon bypass for bypass of colonic obstruction CT abdomen pelvis with contrast 12/08/2016- Mildly increased intrahepatic bile ductal dilatation. Distended gallbladder appears grossly unchanged since prior study. 12/08/2016- transaminases started to rise on 12/06- tbili 0.8-> 1.8, ast 48-> 63, alt 41->53, alk phosph 65-> 97. On 12/08- tbili 3.8, ast 227, alt 222, alk phosph 289. Pt transaminitis ddx= TPN induced vs bile duct obstruction. Recs: - agree with stopping TPN given transaminitis - Recs per Gen surgery re: possible biliary decompression - serial abdominal exams will continue to follow Problems: VTE Prophylaxis: Sub-Q Heparin (Unfractionated), SCDs Resuscitation Status: DNR/DNI:Do Not Resuscitate/Intubate Earl Alcocer MD Dec 08, 2016 13:12
--- NOTE | 2016-12-08 13:15 | PCM.PNMED ---
Subjective Date of Service Dec 08, 2016 Subjective Nurse reports no acute events overnight. Patient remained asymptomatic sinus tachycardic throughout the night. Patient seen and examined. Patient states that she slept well overnight. Denies any nausea/vomiting/diarrhea at this time. C/o mild surgical discomfort at surgical site on the abdomen. Has no other complaints at this time. ROS reviewed and otherwise negative. Exam Vital Signs Vital Sign - Last Date Time Temp Pulse Resp B/P Pulse Ox O2 Delivery O2 Flow Rate FiO2 12/08/16 12:08 37.1 102 18 152/92 98 Room Air 12/08/16 03:19 1.00 12/03/16 14:15 100 Intake and Output 12/07/16 12/07/16 12/08/16 Cumulative From/Thru 15:00 23:00 07:00 11/26/16 10:44 - 12/08/16 05:26 Intake Total 953 ml 0 ml 86057 ml Output Total 1055 ml 685 ml 22705 ml Balance -102 ml -685 ml 90073 ml Intake Oral 0 ml 0 ml 8422 ml IV Total 953 ml 69799 ml TPN/PPN 2355 ml Output Urine Total 500 ml 500 ml 8085 ml Stool Total 410 ml Gastric Drainage Total 400 ml 1200 ml Emesis 2625 ml Drainage Total 155 ml 185 ml 385 ml Estimated Blood Loss 10 ml # Voids 45 # Bowel Movements 9 Exam Constitutional: Awake, alert and oriented x4. In no acute distress. Head: Normocephalic and atraumatic. Eyes: slceral icterus present in both eyes. EOMI. Pupils equal round and reactive to light. Heart: sinus tachycardia. normal rhythm. No peripheral edema. Lungs: Clear to auscultation bilaterally. No wheeze rales or rhonchi. Subcutaneous crepitus on palpation. ABD: Surgical site from epigastrium to umbilicus that is closed with alem. No surrounding erythema or drainage at surgical site. Two PHOEBE drains placed coming from site that are actively draining. Musculoskeletal: Moves all four extremities appropriately. Skin: mild jaundice. Warm, dry. Neuro: CN II-XII intact. No focal deficits Psych: Appropriate mood and affect. IVs and Medications Medications Reviewed: Medications were reviewed in detail Medications High Risk IV Medications: TPN Fluconazole Zosyn Fentanyl Lab and Diagnostics Item Value Date Time Red Blood Count 3.16 mil/mm3 L 12/08/16411 Mean Corpuscular Volume 100.9 fL H 12/08/16411 Mean Corpuscular Hemoglobin 33.9 pg 12/08/16411 Mean Corpuscular Hemoglobin Concent 33.5 % 12/08/16411 Red Cell Distribution Width 14.6 % 12/08/16411 Platelet Count 330 vanesa/L 12/08/16411 Estimat Glomerular Filtration Rate 172 mL/min 12/08/16411 Calcium Level 7.9 mg/dL L 12/08/16411 Magnesium Level 2.3 mg/dL 12/08/16411 Total Bilirubin 3.8 mg/dL H 12/08/16411 Aspartate Amino Transf (AST/SGOT) 227 U/L H 12/08/16411 Alanine Aminotransferase (ALT/SGPT) 222 U/L H 12/08/16411 Total Protein 4.4 g/dL L 12/08/16411 Alkaline Phosphatase 289 U/L H 12/08/16411 Albumin 2.6 g/dL L 12/08/16411 Result Diagram: 12/08/1641112/08/16411 Microbiology Nasopharyngeal PCR negative Blood Cultures Negative ABD culture no organisms seen. X-Rays, CTs and MRIs CT ABDOMEN AND PELVIS WITH CONTRAST IMPRESSION: Severe ascending and transverse colonic wall thickening in keeping with an infectious or inflammatory (statistically less likely ischemic) colitis. Of note the appendix is not discretely identified therefore cannot entirely exclude acute appendicitis although probably less likely given the long segment involvement. Nonetheless, recommend clinical and laboratory correlation. Nonobstructive right renal calculus. L3 osseous metastasis as before, with unchanged appearance Dictated by: Benny Telles M.D. on 11/26/2016 at 14:18 PROCEDURE: CT ABDOMEN AND PELVIS WITH CONTRAST IMPRESSION: Status post placement of upper and lower surgical drains. Proximal small bowel/jejunal wall thickening without evidence of obstruction. This could be postsurgical in nature, recommend clinical correlation. Mildly increased intrahepatic bile ductal dilatation. Distended gallbladder appears grossly unchanged since prior study. Pericholecystic fluid is present as before, of unknown etiology. Recommend clinical correlation and with LFTs. Redemonstration of prominent abdominal wall subcutaneous soft tissue gas. Small bilateral pleural effusions. Findings were discussed with Dr. Gusman approximately 0930 hours 12/08/16. Additional chronic and incidental findings. Dictated by: Benny Telles M.D. on 12/08/2016 at 9:23 Assessment & Plan Vernell Bailon is a 66-year-old woman with past medical history significant for ER positive HER-2 negative metastatic breast cancer which initially presented as small bowel obstruction secondary to diffuse small bowel infiltration was initially diagnosed in late 2013 who presents to the [facility] emergency department today due to nausea and vomiting and recurrent mild abdominal pain. Patient underwent resection of perforated bowel in a nicole-en-Y reconstruction performed by Dr. Gusman on the timber poisoner of 12/07. Biliary dilation and a distended gallbladder, likely obstructive in nature, not present on admission, active. - CT ABD shows evidence of gallbladder obstruction (see note above) CT image reviewed. - Total bilirubin: 3.8, AST: 227, ALT: 222, Alk Phosphate: 289 (12/08) - Hold TPN - Continue D5 solution - Spoke with Dr. Gusman, Interventional Radiology would not be able to see patient until Sunday 12/10, patient will likely be transferred to [facility] tomorrow for corrective procedure Perforated bowel, acute thought to be due to duodenal stent migration to jejunum causing a perf in jejunum, not present on admission, Active - Post surgery nicole-en-Y procedure day (1) performed by Dr. Gusman. - Patient NPO until cleared by GI to advance - Fentanyl IV for pain control - Patient is given morphine pump for pain control - Empiric Zosyn started 12/06 for infection control Metastatic ER positive, HER-2 negative breast cancer, present on admission, active -Tumor marker 123, not a huge change from previous one (119) - No chemo until patient improves further, as per Dr. Carlin - Discussed case with Dr. Carlin, his recs as above - Dr. Elizalde is following Transverse and ascending colon colitis concerning for typhlitis, present remission, resolved - Colonoscopy done, no signs of active inflammation - symptoms resolved - Stool PCR -ve for any pathogens Hypertension, present on admission, active -- amlodipine 10 mg, chlorthalidone 25 mg -- Currently NPO -- Thought to be due to pain and ongoing perforation, IV when necessary labetalol and enalapril Upper GI partial obstruction. Resolved. - Post op day (1) from nicole-en-Y procedure Leukopenia secondary to cytotoxic agent, present on admission, resolved Nutrition -Patient is status post exploratory lap biopsies are done by Dr. Gusman - Post op day (1) for nicole-en-Y reconstruction - TPN is being held until obstructive process of gallbladder resolved. -Hold TPN as above -Empiric Fluconazole started 12/06 for antifungal -Insulin gtt -Lantus 10 HS Maintenance: Heparin SubQ for anticoagulation Benadryl IV for sleep aid Zofran IV for nausea CODE STATUS: DNR/DNI Disposition: This patient underwent open laparotomy timber poisoner on 12/07 with a nicole-en-Y reconstruction. Patient's Liver functions and bilirubin have been trending upwards and CT ABD indicating a gallbladder obstruction. Interventional Radiology will not be able to see patient until Saturday. Patient will likely be transferred to [facility] tomorrow for further treatment. VTE Prophylaxis: Sub-Q Heparin (Unfractionated), SCDs VTE Mechanical Devices: Intermittant Pneumatic CD Resuscitation Status: DNR/DNI:Do Not Resuscitate/Intubate Leno Yepez DO Dec 08, 2016 13:15
[2016-12-08] MEDS: Fluconazole Inj 400 MG in IV Premix 1 EACH IV SCH (15:30)
--- NOTE | 2016-12-08 18:16 | PCM.DC.MED ---
Discharge Summary Date of Service Dec 08, 2016 Dates of Hospitalization Date of Hospital Admission Nov 26, 2016 at 16:48 Date of Discharge: Dec 08, 2016 Providers: Admitting Physician: Fab Solorio MD Primary Care Physician: Karen Lopez PA-C Attending Physician: Juanita Muro DO Diagnosis at Time of Discharge Diagnosis at Time of Discharge Biliary dilation and a distended gallbladder, likely obstructive in nature Perforated bowel, acute thought to be due to duodenal stent migration to jejunum causing a perf in jejunum Metastatic ER positive, HER-2 negative breast cancer Transverse and ascending colon colitis concerning for typhlitis Hypertension Upper GI partial obstruction Leukopenia secondary to cytotoxic agent Consultations Leodan Day - GI Dr. Holm - GI Dr. Carlin - Oncology Dr. Gusman - Surgery Procedures XRay, CTs & MRIs CT ABDOMEN AND PELVIS WITH CONTRAST IMPRESSION: Severe ascending and transverse colonic wall thickening in keeping with an infectious or inflammatory (statistically less likely ischemic) colitis. Of note the appendix is not discretely identified therefore cannot entirely exclude acute appendicitis although probably less likely given the long segment involvement. Nonetheless, recommend clinical and laboratory correlation. Nonobstructive right renal calculus. L3 osseous metastasis as before, with unchanged appearance Dictated by: Benny Telles M.D. on 11/26/2016 at 14:18 PROCEDURE: CT CHEST, ABDOMEN AND PELVIS WITHOUT CONTRAST IMPRESSION: 1. Moderate pneumoperitoneum redemonstrated with a predominance in the left upper quadrant adjacent to the 4th portion of the duodenum in proximity to the distal end of the small bowel stent. The findings likely represent a perforation associated with stent migration. 2. Small to moderate amount of free fluid in the abdomen and pelvis is nonspecific and may be associated with the bowel perforation, related to recent surgery, or reflect reactive changes. 3. Large amount of subjacent edema in the thoracic and abdominal graff likely related to recent laparoscopic surgery. 4. Small amount of pneumomediastinum likely secondary to the subcutaneous emphysema or pneumoperitoneum. Findings with discussed with Dr. Gusman on 12/06/16 at 4 PM. 5. Multiple segments of bowel wall thickening involving the duodenum, terminal ileum, and ascending to transverse colon likely representing metastatic disease. 6. L3 metastatic lesion redemonstrated as well as a sclerotic lesion in the posterior right 4th rib. Dictated by: Vern Francisco M.D. on 12/06/2016 at 15:33 PROCEDURE: CT ABDOMEN AND PELVIS WITH CONTRAST IMPRESSION: 1. Small to moderate amount of free air is of uncertain origin, but may be related to a nonvisualized perforation/leak at the duodenal stent and/or proximal jejunal anastomosis and clinical correlation is recommended. However, this free air could potentially be benign related to recent laparoscopic surgery. Please correlate clinically. A CT of the abdomen with oral contrast maybe helpful to determine if there is a bowel perforation/leak. 2. There are at least a small bowel ileus. A partial bowel obstruction may be present. 3. Moderate thickening of the wall of the ascending colon suspicious for colitis. However, a metastatic deposit is difficult to exclude. 4. Pneumomediastinum is of uncertain etiology, but does raise the suspicion for possible esophageal perforation. CT of the chest would be helpful for better evaluation. 5. Small amount of ascites. No drainable fluid collection or abscess. 6. Small left-sided pleural effusion. 7. Heterogeneous enhancement of the kidneys is of doubtful significance. Please correlate clinically to exclude pyelonephritis. 8. Marked intrahepatic/extrahepatic biliary dilatation and dilatation of the main pancreatic duct. This has not changed since 2015. 9. Bony metastases as described. Dictated by: Forest Marion M.D. on 12/06/2016 at 11:33 PROCEDURE: CT ABDOMEN AND PELVIS WITH CONTRAST IMPRESSION: Status post placement of upper and lower surgical drains. Proximal small bowel/jejunal wall thickening without evidence of obstruction. This could be postsurgical in nature, recommend clinical correlation. Mildly increased intrahepatic bile ductal dilatation. Distended gallbladder appears grossly unchanged since prior study. Pericholecystic fluid is present as before, of unknown etiology. Recommend clinical correlation and with LFTs. Redemonstration of prominent abdominal wall subcutaneous soft tissue gas. Small bilateral pleural effusions. Findings were discussed with Dr. Gusman approximately 0930 hours 12/08/16. Additional chronic and incidental findings. Dictated by: Benny Telles M.D. on 12/08/2016 at 9:23 Invasive Procedures ENDOSCOPY PROCEDURE Esophagogastroduodenoscopy with biopsy FINDINGS: 1. Esophagus: The squamocolumnar junction generally correlated with the top of the gastric folds. There was a subtle sliding hiatal hernia. The patient had evidence of some erosions and ulcerations right at the level of the GE junction. No mass effect evident. Photographs were taken. 2. Stomach: The patient had a moderately increased volume of mostly fluid remaining in the stomach. There was a small amount of scant debris. All of this was easily suctioned up with the endoscope. Retroflexed views of the LES were otherwise unremarkable. No ulcers. No mass lesions. No outlet obstruction evident. 3. Duodenum: The duodenal bulb was patent. However in trying to traverse into the second portion, it was obvious that there was significant luminal obstruction. It was difficult to determine the precise nature of said obstruction. It seemed as though much of the duodenal mucosa was quite edematous and arguably being constricted from the outside. There was an element of mucosal irregularity and even friability in this area. With some difficulty, we were able to obtain some biopsies for histopathologic analysis. I was able to navigate the endoscope fully through into the second portion which then appeared to be normal. <Electronically signed by Giancarlo Holm MD> 11/27/16 2228 ENDOSCOPY PROCEDURE Flexible sigmoidoscopy with biopsy and tattoo placement. FINDINGS: Multifocal stricturing at the level of the splenic flexure. The more severe stenosis aperture was down to perhaps 8 or 9 mm. With the scope looping, we were not able to navigate the tip through this region. It was biopsied and then an 1 mL tattoo was placed just distal to it. There was a 2nd minimally stenotic region just distal to the tattoo. The remainder of the descending and sigmoid was unremarkable, apart from moderate tortuosity. No evidence of colitis or mass lesions apparent in the left colon. We did get some visualization into the transverse on the other side of the stenosis and did not see any obvious sign of retained stool or inflammation. <Electronically signed by Giancarlo Holm MD> 11/29/16 2118 ENDOSCOPY PROCEDURE PROCEDURE: EUS exam. IMPRESSION: Incomplete EUS exam as we were unable to advance the scope beyond the distal duodenal bulb secondary to stricturing. No obvious mass lesions seen to explain stricture in the duodenum. <Electronically signed by Mayra De La Cruz MD> 12/03/16 1628 ENDOSCOPY PROCEDURE PROCEDURE: Esophagogastroduodenoscopy with stent deployment under fluoroscopy. FINDINGS: 1. Esophagus NG tube trauma was evident. No sustained bleeding. 2. Stomach: A moderate amount of brown liquid was identified and easily suctioned up with the endoscope. 3. Duodenum: High-grade irregular stenosis again identified. We were able to place a 9 cm uncovered duodenal WallFlex stent across the obstructed segment. Positioning appeared appropriate fluoroscopically and endoscopically. <Electronically signed by Giancarlo Holm MD> 12/04/16 2149 OPERATIVE REPORT DATE OF SURGERY: 12/03/2016 PROCEDURE PERFORMED: Diagnostic laparoscopy with lysis of adhesions and biopsies. <Electronically signed by Malini Gusman MD> 12/04/16 1045 OPERATIVE REPORT DATE OF SURGERY: 12/06/2016 PROCEDURE PERFORMED: 1. Laparotomy. 2. Abdominal washout. 3. Resection of perforated jejunum with Nciole-en-Y gastrojejunostomy 4. [id number]-qi-[id number] ileum-descending colon bypass. <Electronically signed by Malini Gusman MD> 12/08/16 8709 Brief History Patient is a 66 yo woman with metastatic breast cancer that first presented as small bowel obstruction in 2014, hypertension, and migraines. Patient was admitted for bowel obstruction and surgery was consulted. Patient was placed on empiric Zosyn for typhilitis which was thought to be causing the bowel obstruction. EGD performed by Dr. Holm with biopsy showed no abnormal cells and no significant findings. Follow up colonoscopy revealed multiple strictures (splenic flexure in the colon). Exploratory laparotomy performed by Dr. Gusman with duodenal stent placement on 12/04. Over the next two days, patient had increased nausea and vomiting that was remitting. Abdominal xray on 12/06 showed air underneath the diaphragm. Patient underwent emergent surgery the parer of 12/07 resulting in a nicole-en-Y reconstruction secondary to displacement of the duodenal stent which perforated the bowel. Exploratory laparotomy site was used for the nicole-en-Y, and patient was closed with alem and 2 PHOEBE drains from surgical site with active serosanguinous drainage. Today, patient's Total bilirubin, liver enzymes, and alk phosphatase were elevated. Dr. Gusman sent patient to CT which revealed patient to have dilated gallbladder indicating obstruction of the outflow tract from the gallbladder. Interventional Radiology was consulted, but they would not be able to see the patient until Saturday. Dr. Gusman contacted [facility] ([place], [place]) who would be able to manage a patient with bowel reconstruction in this capacity. Patient was transferred by [facility] to [facility] ([place], [place]). Hospital Course Vernell Bailon is a 66-year-old woman with past medical history significant for ER positive HER-2 negative metastatic breast cancer which initially presented as small bowel obstruction secondary to diffuse small bowel infiltration was initially diagnosed in late 2013 who presents to the [facility] emergency department today due to nausea and vomiting and recurrent mild abdominal pain. Patient underwent resection of perforated bowel in a nicole-en-Y reconstruction performed by Dr. Gusman on the parer of 12/07. CT scan performed on 12/08 showed evidence of gallbladder distension. This along with elevated liver enzymes lead to diagnosis of likely obstruction of the gallbladder outflow tract causing biliary distension. Patient was transferred to [facility] ([place], [place]). Biliary dilation and a distended gallbladder, likely obstructive in nature -CT image reviewed. - Held TPN - Continued D5 solution - transferred to [facility] ([place], [place]) for corrective procedure Perforated bowel, acute thought to be due to duodenal stent migration to jejunum causing a perf in jejunum - nicole-en-Y procedure performed by Dr. Gusman. - Patient made NPO - Fentanyl IV given for pain control - Patient was given morphine pump for pain control - Empiric Zosyn started 12/06 for infection control Metastatic ER positive, HER-2 negative breast cancer - Chemotherapy held until patient improves further, as per Dr. Carlin - Discussed case with Dr. Carlin, his recs as above Transverse and ascending colon colitis concerning for typhlitis - Colonoscopy was performed showing no signs of active inflammation - Stool PCR was negative for any pathogens Hypertension -- Held home dose of amlodipine 10 mg and chlorthalidone 25 mg Upper GI partial obstruction - Nicole-en-Y procedure performed by Dr. Gusman Leukopenia secondary to cytotoxic agent Exam Vital Signs (Last) Date Time Temp Pulse Resp B/P Pulse Ox O2 Delivery O2 Flow Rate FiO2 12/08/16 16:56 36.6 98 18 164/93 97 Room Air 12/08/16 03:19 1.00 12/03/16 14:15 100 Exam Constitutional: Awake, alert and oriented x4. In no acute distress. Head: Normocephalic and atraumatic. Eyes: scleral icterus present in both eyes. EOMI. Pupils equal round and reactive to light. Heart: sinus tachycardia. normal rhythm. No peripheral edema. Lungs: Clear to auscultation bilaterally. No wheeze rales or rhonchi. Subcutaneous crepitus on palpation. ABD: Surgical site from epigastrium to umbilicus that is closed with alem. No surrounding erythema or drainage at surgical site. Two PHOEBE drains placed coming from site that are actively draining. Musculoskeletal: Moves all four extremities appropriately. Skin: mild jaundice. Warm, dry. Neuro: CN II-XII intact. No focal deficits Psych: Appropriate mood and affect. Test 11/26/16 11:05 11/26/16 11:37 11/26/16 12:04 11/28/16 08:45 Hold Urine Received (Received) Lipase 193U/L (13-60) Procalcitonin 0.05ng/mL (0.00-0.08) Lactic Acid Level 1.3mmol/L (0.4-2.0) Hold Ospina Top Tube Received (Received) CA 27.29 123.7U/mL (0.0-38.6) Test 11/30/16 06:11 12/03/16 09:10 12/06/16 05:30 12/06/16 20:00 Prothrombin Time 11.2sec (8.1-12.5) Prothromb Time International Ratio 1.05ratio Triglycerides Level 158mg/dL (0-149) Phosphorus Level 2.0mg/dL (2.5-4.9) Urine Color Yellow (YELLOW) Urine Appearance Clear (CLEAR,HAZY) Urine pH 5.5 (5.0-8.0) Urine Specific Ryan 1.025 (1.003-1.035) Urine Protein 30mg/dL (NEG,TRACE) Urine Glucose (UA) Negativemg/dL (NEGATIVE) Urine Ketones Negativemg/dL (NEGATIVE) Urine Occult Blood Negative (NEGATIVE) Urine Nitrite Negative (NEGATIVE) Urine Bilirubin Negative (NEGATIVE) Urine Urobilinogen Normalmg/dL (NORMAL) Urine Leukocyte Esterase Negative (NEGATIVE) Urine RBC 0-2/hpf (0-2) Urine WBC 0-5/hpf (0-5) Urine Epithelial Cells Few/hpf (NONE-MOD) Urine Crystals None seen (NONE SEEN) Urine Bacteria Few/hpf (NONE-FEW) Urine Hyaline Casts None/lpf (NONE) Urine Granular Casts None seen (NONE SEEN) Urine Waxy Casts None seen (NONE SEEN) Urine Red Blood Cell Casts None seen (NONE SEEN) Urine White Blood Cell Casts None seen (NONE SEEN) Urine Mucus None seen (None Seen) Urine Trichomonas None seen (NONE SEEN) Urine Yeast None (NONE SEEN) Urinalysis Comment None Urine Culture Reflexed Not indicated Test 12/07/16 00:44 12/07/16 11:55 12/08/16 04:12 Hepatitis B Surface Antigen Negative (Negative) Hepatitis C Antibody <0.1s/co ratio (0.0-0.9) HIV (1&2) Ag and Ab, 4th Generation Non reactive (Non Reactive) HIV (1&2) Antibody Rapid Negative (Negative) Neutrophils (%) (Auto) 80.3% (40-74) Lymphocytes (%) (Auto) 6.4% (14-46) Monocytes (%) (Auto) 10.3% (4-12) Eosinophils (%) (Auto) 0.1% (0-5) Basophils (%) (Auto) 0.2% (0-3) White Blood Count 11.3th/mm3 (3.8-10.1) Red Blood Count 3.16mil/mm3 (3.90-5.20) Hemoglobin 10.7g/dL (12.0-15.6) Hematocrit 31.9% (35.0-46.0) Mean Corpuscular Volume 100.9fL (81-100) Mean Corpuscular Hemoglobin 33.9pg (27.0-35.0) Mean Corpuscular Hemoglobin Concent 33.5% (32.0-37.0) Red Cell Distribution Width 14.6% (12.3-15.4) Platelet Count 330bil/L (150-400) Sodium Level 142mEq/L (134-144) Potassium Level 4.4mEq/L (3.5-5.2) Chloride Level 110mEq/L (97-108) Carbon Dioxide Level 21mmol/L (18-29) Blood Urea Nitrogen 35mg/dL (8-27) Creatinine 0.51mg/dL (0.57-1.00) Estimat Glomerular Filtration Rate 172mL/min (>59) Glucose Level 147mg/dL (60-99) Calcium Level 7.9mg/dL (8.5-10.1) Magnesium Level 2.3mg/dL (1.6-2.6) Total Bilirubin 3.8mg/dL (0.0-1.2) Aspartate Amino Transf (AST/SGOT) 227U/L (0-50) Alanine Aminotransferase (ALT/SGPT) 222U/L (0-32) Alkaline Phosphatase 289U/L (25-165) Total Protein 4.4g/dL (6.4-8.4) Albumin 2.6g/dL (3.4-5.0) Microbiology Results Nasopharyngeal PCR negative Blood Cultures Negative ABD culture no organisms seen. Discharge Medications Discharge Medications Calcium Carbonate (Calcium) 600 Mg Tablet 600 MG PO DAILY (Reported) Fulvestrant (Faslodex) 250 Mg/Syr Syringe Unknown Dose IM every 28 days ( Reported) Letrozole (Letrozole) 2.5 Mg Tablet 2.5 MG PO DAILY (Reported) Lisinopril (Lisinopril) 10 Mg Tablet 10 MG PO DAILY (Reported) Multivitamin (Multivitamins) 1 Each Capsule 1 EACH PO DAILY (Reported) Palbociclib (Ibrance) 125 Mg Capsule 125 MG PO [id number] (Reported) Followup Plan Disposition: Transfer to [facility] ([place], [place]). Time spent greater than 35 minutes coordinating plan, discussing transfer with receiving facility, and discussing with family. Attending Statement The patient was seen and examined together with Dr. Yepez on 12/08/16 and I have added additional information to the note above. copies to: Collin Aguayo MD; Karen Lopez PA-C; Earl Alcocer MD ; Malini Gusman MD; Giancarlo Holm MD, Anthony P DO Dec 08, 2016 18:16 Juanita Muro DO Dec 09, 2016 11:02
[2016-12-08] MEDS: Total Parenteral Nutrition 1 BAG IV SCH (19:04)
--- NOTE | 2016-12-08 19:30 | NUR ---
Liver function/ TPN/PHOEBE drains: Elevated AST/ALT. aware. Dr Gusman instructed NOC RN to hold TPN. TPN DC'd and and replaced with D51/2NS 100mL/hr. CT with contrast was ordered and total of 250cc of contrast was administered via NG tube. NG tube remains to low continuous suction draining small amounts of green fluid (about 50 cc this shift). PHOEBE drains patent drain A =170cc and drain B = 410cc total output for day shift today.
[2016-12-08] MEDS: Insulin GLARgine 100 Unit/mL Syringe SUBQ SCH (21:00)
[2016-12-09] MEDS: Piperacillin-Tazo 3.375 Gm Inj 3.375 GM in Dextrose 5% Minibag Plus 50 ML IV SCH (01:09)
[2016-12-09] MEDS: Heparin 5,000 Unit/mL Inj SUBQ SCH (01:10)
[2016-12-09] MEDS: Sodium Chloride LOK Flush 10 mL Syringe IVFLUSH SCH (01:13)
[2016-12-09] MEDS: D5 0.45% NaCl + KCl 20 mEq/L 1,000 ML IV SCH (02:08)
[2016-12-09] MEDS: fentaNYL 2 mCg/mL-Bupiv 0.125% 100 ML in IV Premix 1 EACH EPIDURAL SCH (02:08)
[2016-12-09 03:03] VITALS: RESP 18; O2SAT 96
[2016-12-09 03:32] VITALS: BP 170/117; PULSE 110; O2SAT 98
--- NOTE | 2016-12-09 03:37 | NUR ---
Transfer to [facility] 10 room 1000 Pt transported via [facility] to [facility]. All belongings brought with patient or brought with the patient's . Epidural pump with fresh fentanyl/buprivacane bag and Epidural pump salinas brought with patient. (RN to bring back Epidural pump and salinas.) Pt A&O, CERON, CMS in all 4 extremities. Pt moved self from hospital bed to transport stretcher with minimal amount of pain. Vitals taken immediately after patient transfer.
--- NOTE | 2016-12-10 16:47 | PATH ---
SURGICAL PATHOLOGY Attending Physician:Johan Rider CASE STATUS: Signed Out PATIENT NAME: ASHU OLMEDO PID: [id number] : 1950 DATE COLLECTED:12/06/2016 00:00 SPECIMEN: Jejunum, Biopsy CLINICAL HISTORY: INTRA ABDOMINAL FREE AIR 1). PERFORATED JEJUNUM FINAL DIAGNOSIS: Jejunum, Resection (Length 6.6 cm): - Metastatic carcinoma, associated with a region of perforation, present as an ill-defined, predominantly serosal-based focus that measures approximately 1.5 cm. - Metastatic carcinoma involves resection margin #1. - The tumor is morphologically consistent with patient's known breast carcinoma. - Hormone receptor studies are pending; results will be reported as an addendum. ICD10: Z85.3 GROSS DESCRIPTION: The specimen is received in formalin, labeled with the patient's name, sublabeled as perf. jejunum, and consists of an oriented segment of small bowel (length-6.6 cm, resection margin #1- 3.5 cm, resection margin #2 diameter-3.9 cm). The resection margins are received stapled. The serosa is licea smooth and shiny. The mucosa is licea smooth and shiny with normal folds. The specimen contains a perforation (0.4 x 0.2 cm) located 2.6 cm from resection margin #1 and 2.8 cm from resection margin #2. No nodules, masses or lesions are identified. Ink code: black-resection margin. Section code: (A-B) resection margin #1 with perforation, longitudinally sectioned, perforation bisected and entirely submitted; (C) resection margin #2, longitudinally sectioned, sales support representative; (D) small bowel segment, serially sectioned, sales support representative. 12/08/16 ICD-9 CODES: CPT CODES: 1: 11614, 84477, 81572, 88368, 73477, 00540 PROCEDURE/ADDENDA: Immunohistochemistry SPI Interpretation {Not Entered} Results-Comments Results of Immunohistochemistry Studies ImmunohistochemistryResult JAQUELINE-3Tumor nuclei positive E-cadherinAttenuated staining, favors a diagnosis of metastatic lobular carcinoma CAP BREAST BIOMARKER REPORTING TEMPLATE: Estrogen Receptor (ER) Status: Positive, 80% Average intensity of staining: Intermediate to strong Primary antibody: SP1 Progesterone Receptor (PgR) Status: Negative, less than 1% Primary antibody: 1E2 HER2 (by immunohistochemistry): Negative 0+ Percentage of cells with uniform intense complete membrane stainin Primary antibody: 4B5 Testing performed on Block Number: 1A TECHNICAL NOTE: The scoring criteria for breast biomarkers by immunohistochemistry is based on the current ASCO/CAP guidelines (Amelia et al, Arch Pathol Lab Med 2010: 134(6): 907-922 & Shai DOWNEY et al, Arch Pathol Lab Med 2014: 138(2): 241-256). Deparaffinized sections of formalin fixed tissue (along with appropriate positive controls) are incubated with the above antibody(s). Using the automated [place] stainer, tissue is incubated with the designated antibody* which is then localized by a non-biotin, dual polymer detection system. The external controls are reviewed for appropriate reactivity and found to be adequate. Results on the target cell population are indicated above. These tests have not been validated on decalcified tissue. * This test was developed and its performance characteristics determined by [facility]. It has not been cleared or approved by the U.S. Food and Drug Administration. The FDA has determined that such clearance or approval is not necessary. This test is used for clinical purposes. It should not be regarded as investigational or for research. JEJUNUM RESECTION: - METASTATIC CARCINOMA, CONSISTENT WITH LOBULAR CARCINOMA OF BREAST ORIGIN BY IMMUNOHISTOCHEMISTRY STUDIES. -ESTROGEN RECEPTOR POSITIVE (80% OF TUMOR NUCLEI, INTERMEDIATE TO STRONG STAINING INTENSITY). -PROGESTERONE RECEPTOR NEGATIVE (LESS THAN 1% OF TUMOR NUCLEI). - NEGATIVE FOR HER2-JOSÉ OVEREXPRESSION (0+). Electronically Signed Out Laura Mobley MD Electronically Signed Out Laura Mobley MD [facility] Pathology [facility] [address], [place] [address] Technical component performed at [facility], [address], [place], [address]
== END 2016-12-09 03:40 | disposition short-term general hospital (02) | DRG 326 ==
LOC: SED 10:40 → OSC 16:48 → PCC 12-06 11:00
PROVIDERS: ADMIT Internal Medicine; ATTEND Internal Medicine
PROC: 0DB98ZX Excision of Duodenum, Via Natural or Artificial Opening Endoscopic, Diagnostic (ICD-10-PCS; principal; 2016-11-27 17:00)
PROC: 0DBL4ZX Excision of Transverse Colon, Percutaneous Endoscopic Approach, Diagnostic (ICD-10-PCS; 2016-11-29 13:45)
PROC: 0WJP4ZZ Inspection of Gastrointestinal Tract, Percutaneous Endoscopic Approach (ICD-10-PCS; 2016-12-03)
PROC: 0DH Gastrointestinal System, Insertion (ICD-10-PCS; 2016-12-04)
PROC: 0D160ZA Bypass Stomach to Jejunum, Open Approach (ICD-10-PCS; 2016-12-06)
PROC: 0DBA0ZZ Excision of Jejunum, Open Approach (ICD-10-PCS; 2016-12-06)
PROC: 0D1A0Z4 Bypass Jejunum to Cutaneous, Open Approach (ICD-10-PCS; 2016-12-06)
DX: K31.5 Obstruction of duodenum (principal); K63.1 Perforation of intestine (nontraumatic); C79.51 Secondary malignant neoplasm of bone; C78.4 Secondary malignant neoplasm of small intestine; C78.5 Secondary malignant neoplasm of large intestine and rectum; K82.0 Obstruction of gallbladder; K52.9 Noninfective gastroenteritis and colitis, unspecified; D70.1 Agranulocytosis secondary to cancer chemotherapy; T81.82XA Emphysema (subcutaneous) resulting from a procedure, initial encounter; I10 Essential (primary) hypertension; C50.911 Malignant neoplasm of unspecified site of right female breast; Z17.0 Estrogen receptor positive status [ER+]; K31.1 Adult hypertrophic pyloric stenosis

== ENCOUNTER → 2017-01-22 | Day surgery (SDC) | payer MEDICARE ==
[~2017-01-22] VITALS: Ht 172.7 cm; Wt 64.0 kg
[~2017-01-22] MED LIST changes: +Atropine 0.4 mg/mL Inj IVPUSH PRN; +Bupivacaine-MPF 0.25% 30 mL Inj INFILTRATE ONE; +CeFAZolin 2 Gm/50 mL D5W Duplex Bag IV ONE; +CeFAZolin Inj 2 GM in IV Premix 1 EACH IV ONE; +Dexamethasone 4 mg/mL Inj IVPUSH PRN; +EPHEDrine Sulfate 50 mg/mL Inj IVPUSH PRN; +HYDROmorphone 1 mg/mL Inj IVPUSH PRN; +HepLOK Flush 100 unit/mL 5 mL Inj IVFLUSH ONE; -LETR2.5T4 PO; +Labetalol 5 mg/mL 20 mL Inj IV PRN; +Lactated Ringer's 1,000 ML IV SCH; +Lactated Ringer's 500 ML IV PRN; +Lidocaine PF 1% 30 mL Inj INFILTRATE ONE; +Ondansetron 2 mg/mL 2 mL Inj IVPUSH PRN; +Ondansetron 2 mg/mL 2 mL Inj ONE; -PALB125C PO; +Phenylephrine 10,000 mCg/mL Inj IVPUSH PRN; +Propofol 10,000 mCg/mL 20 mL Inj ONE; +fentaNYL-PF 50 mCg/mL 2 mL Inj IVPUSH PRN; +fentaNYL-PF 50 mCg/mL 2 mL Inj ONE; +hydrALAZINE 20 mg/mL Inj IVPUSH PRN
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
[2017-01-22 12:04] VITALS: BP 160/87; PULSE 84; RESP 18; O2SAT 100
[2017-01-22] MEDS: Lactated Ringer's 1,000 ML IV SCH ×2 (12:14→13:38)
[2017-01-22 14:30] VITALS: BP 151/93; PULSE 85; RESP 16; O2SAT 97
--- NOTE | 2017-01-22 14:31 | PCM.SURGPO ---
Immediate Operative Note Date of Surgery: Jan 22, 2017 Pre Operative Diagnosis Metastatic breast cancer Post Operative Diagnosis Metastatic breast cancer Procedure Left subclavian central venous catheter placement with port. Surgeon and Shipper And Receiving Surgeon: Malini Gusman MD Assistants: Bridget Lal MD Findings Left subclavian Powerpoint placed with tip at cavoatrial junction, catheter length 24cm. Complications There were no periprocedural complications identified. Surgical Specimen Removed: No Specimen sent to Pathology: No Anesthetic Administered: MAC Grafts, Implants: Implants-See Implant Record Output, Estimated Blood Loss: 5 Blood Admin during surgery: Bridget Moss MD Jan 22, 2017 14:31
--- NOTE | 2017-01-22 14:35 | PCM.ANEP1 ---
Post Anesthesia PACU Phase 1 Assessment Vital Signs Vital Signs Date Time Temp Pulse Resp B/P Pulse Ox O2 Delivery O2 Flow Rate FiO2 01/22/17 12:04 37.0 84 18 160/87 100 Room Air Anesthetic Administered: MAC Level of Alertness: Awake, talking CERON's with Equal Strength: Yes Pain: No Nausea or Vomiting: No CV Function & Hydration Stable: Yes Airway Device: Lungs: Normal Air Movement PACU Phase 2 Assessment Complications: No Follow up Care: No Patient Instructions Provided: N/A Jose Clayton MD Jan 22, 2017 14:35
--- NOTE | 2017-01-22 15:39 | DRSVH ---
PROCEDURE: X-RAY CHEST ONE VIEW ([id number]) INDICATIONS: Port placement TECHNIQUE: One view of the chest was acquired. COMPARISON: [facility], CR, XR CHEST 1VW, 12/06/2016, 10:44. FINDINGS: Surgical changes and devices: Left chest port with the tip projecting in the lower SVC. Lungs and pleura: No pleural effusions or pneumothorax. Lungs are clear. Mediastinum: Mediastinal contours appear normal. Heart size is normal. Bones and chest wall: No suspicious bony lesions. Overlying soft tissues appear unremarkable. IMPRESSION: No acute disease. Left chest port with the tip projecting in the lower SVC. No pneumothorax. Dictated by: Benny Telles M.D. on 01/22/2017 at 14:35 Approved by: Benny Telles M.D. on 01/22/2017 at 14:37
[2017-01-22 15:45] VITALS: BP 142/77; PULSE 68; RESP 15; O2SAT 99
--- NOTE | 2017-01-22 17:03 | OP ---
[address] [address] OPERATIVE REPORT PATIENT: ASHU OLMEDO : 1950 MR#: [id number] ADMIT: 01/22/2017 JOB ID: [id number] DATE OF SURGERY: 01/22/2017 PREOPERATIVE DIAGNOSIS(ES): Metastatic breast cancer. POSTOPERATIVE DIAGNOSIS(ES): Metastatic breast cancer. PROCEDURE PERFORMED: Tunneled left subclavian central venous catheter with subcutaneous port placement and intraoperative fluoroscopy. SURGEON: Malini Gusman MD SENIOR SUSTAINABILITY CONSULTANT: COMPLICATIONS: None. INDICATIONS: The patient is a 66-year-old lady who was diagnosed in 2014 with metastatic breast cancer infiltrating the small bowel. After the bowel resection she went on to undergo induction chemotherapy with Taxotere and Cytoxan followed by hormonal therapy. She presented again this year with multifocal bowel obstruction requiring palliative bypass and extensive interventions, but she has recovered from that and she is here to get a port for ongoing chemotherapy with Doxil. PROCEDURE DETAILS: She was placed in a supine position and underwent the smooth induction of general sedation. The neck and chest were prepped and draped in the usual sterile fashion. Surgical time-out was undertaken using safety checklist and all were in agreement. I began by entering the left subclavian vein using Seldinger technique and then advanced the wire under fluoroscopy and measured the required length of the catheter. After that, I made a pocket over the left pectoralis and anchored a port over the pectoralis fascia and cut the required length of the catheter and attached it to the port. I then dilated the wire tract using an introducer dilator and removed the dilator and the wire and advanced the catheter through the port. I advanced the catheter through the introducer sheath. We then removed the tear-away sheath, placed the port within the pocket, and flushed it with saline and heparin. The final x-ray showed the catheter to be in good position, with no complications. The skin was reapproximated with 4-0 Monocryl. Steri-Strips and a sterile dressing were applied. The patient was recovered from anesthesia and was taken to the recovery room in stable condition.
--- NOTE | 2017-01-22 17:38 | PCM.ANEP1 ---
Post Anesthesia PACU Phase 1 Assessment Vital Signs Vital Signs Date Time Temp Pulse Resp B/P Pulse Ox O2 Delivery O2 Flow Rate FiO2 01/22/17 15:45 36.5 68 15 142/77 99 Room Air 01/22/17 14:30 36.3 85 16 151/93 97 Room Air 01/22/17 12:04 37.0 84 18 160/87 100 Room Air Anesthetic Administered: MAC Level of Alertness: Awake, talking CERON's with Equal Strength: Yes Pain: No Nausea or Vomiting: No CV Function & Hydration Stable: Yes Airway Device: Lungs: Normal Air Movement PACU Phase 2 Assessment Complications: No Follow up Care: No Patient Instructions Provided: N/A Jose Clayton MD Jan 22, 2017 17:38
== END | disposition home or self-care (01) ==
LOC: SAS 11:24
PROVIDERS: ATTEND Student in an Organized Health Care Education/Training Program
DX: C50.919 Malignant neoplasm of unspecified site of unspecified female breast (principal); C79.51 Secondary malignant neoplasm of bone; I10 Essential (primary) hypertension; G43.909 Migraine, unspecified, not intractable, without status migrainosus; F32.9 Major depressive disorder, single episode, unspecified; Z92.21 Personal history of antineoplastic chemotherapy
CPT/HCPCS: 36561; 71010; 77001; C1788; C1892; C1894; J0690; J1642; J2405; J2704; J3010; J7120